=== PATIENT | female | born 1980 | race Caucasian/White ===

== ENCOUNTER 2019-09-30 04:27 | Inpatient (IN) | payer OTHER, SELFPAY ==
[~2019-09-30] VITALS: Ht 149.9 cm; Wt 72.6 kg
[~2019-09-30 04:27] MED LIST: BUDE1AER IH; EZET10TA14 PO; LABE200T9 PO; MYCO500T PO; NITR100C7 PO; OMEP20EC9 PO; PRED-285 PO; TACR1CAP PO; [UNRECOGNIZED DRUG - CODE] PO; [UNRECOGNIZED DRUG - CODE] PO
--- NOTE | 2019-09-30 04:27 | NUR ---
PT BIBA ALS TO ER BED 10
[2019-09-30] MEDS ORDERED: VANCOMYCIN 1,000 MG in DEXTROSE 5% 250 ML IV ONE (04:30)
[2019-09-30] MEDS ORDERED: MEROPENEM 1,000 MG in NACL 0.9% 100 ML IV ONE (04:30)
[2019-09-30] MEDS ORDERED: ZINC SULF 220 MG CAP PO ONE (04:30)
[2019-09-30] MEDS ORDERED: HYDROXYCHLOROQUINE 200 MG TAB PO ONE (04:30)
[2019-09-30] MEDS ORDERED: NACL 0.9% 2,000 ML IV ONE (04:30)
--- NOTE | 2019-09-30 04:30 | NUR ---
PT BIBA FROM [facility] FOR C/O SOB ABD COUGH X 1 DAY. PT ALSO STATED SHE HAD A FEVER OF 100.4 AT FACILITY. CURRENT TEMP 99.4. PT ON 15L OF O2 ON NON-REBREATHER MASK. PT RESPIRATIONS ARE EVEN AND UNLABORED. PT NOTED WITH BILATER CRACKLES THROUGHOUT LUNG. PT O2SAT @ 98%. PT DENIES N/V/D. PT SKIN IS WARM AND DRY TO TOUCH. PT HAD KIDNEY TRANSPLANT IN 2004. OLD DIALYSIS PORT NOTED IN R UPPER ARM. PT HAD L HIP REPLACEMENT IN [facility]. PT ABLE TO AMBULATE WITH ASSISTANCE. PT CONTINUES ON GAMING PIT BOSS. VSS. PT BED IS LOCKED AND IN LOWEST POSITION. MEDHX: HTN, ANXIETY ALLERGIES: SEE ALLERGY LIST
--- NOTE | 2019-09-30 04:40 | NUR ---
UA COLLECTED VIA BEDSIDE COMMODE. PT ABLE TO AMBKLUATE WITH ASSISTANCE TO BEDSIDE COMMODE.
[2019-09-30] MEDS ORDERED: MEROPENEM 1,000 MG VIAL IV ONE (04:48)
[2019-09-30] MEDS ORDERED: VANCOMYCIN 1,000 MG VIAL ONE (04:48)
--- NOTE | 2019-09-30 04:50 | NUR ---
IV PLACED IN L AC 20 G. IV PATENT. LABS COLLECTED AND SENT TO LAB.
[2019-09-30 04:58] VITALS: BP 123/54
--- NOTE | 2019-09-30 05:02 | NUR ---
RT AT BEDSIDE COLLECTING ABG.
--- NOTE | 2019-09-30 05:10 | NUR ---
XRAY AT BEDSIDE.
--- NOTE | 2019-09-30 05:13 | NUR ---
RSV, FLU, AND COVID SWAB COLLECTED VIA NARES. PT TOLERATED WELL.
--- NOTE | 2019-09-30 05:29 | NUR ---
PT IVF 0.9% NS RUNNING CONTINOUSLY IN L AC. IV SITE IS PATENT. IVPB MEROPENEM 1000MG RUNNING AT 200ML/HR. PT RESPIRATIONS ARE EVEN AND UNLABORED. SKIN IS WARM AND DRY TO TOUCH. PT GIVEN WATER PO AND ABKLE TO SWALLOW WITHOUT DIFFICULTY. PT CONTINUES ON CARDIAC MONTIOR. PT CONTINUES ON INSECTICIDE SPRAYER. VSS. PT BED I LOCKED AND IN LOWEST POSTION. PT SIDE RIAL UP X 1.
--- NOTE | 2019-09-30 05:40 | NUR ---
PT STATES SHE IS UNBALE TO GIVE SPUTUM AT THIS TIME.
[2019-09-30] MEDS ORDERED: HYDROcodone/APAP 7.5/325 MG 1 TAB PO PRN (05:45)
[2019-09-30] MEDS ORDERED: ONDANSETRON 4 MG/2 ML VIAL IVP PRN (05:45)
[2019-09-30] MEDS ORDERED: METH4TAB1 PO (06:09)
[2019-09-30] MEDS ORDERED: DICL100T2 PO (06:09)
[2019-09-30] MEDS ORDERED: SODI650T2 PO (06:09)
[2019-09-30] MEDS ORDERED: PANT40EC PO (06:09)
[2019-09-30] MEDS ORDERED: CONJ0.6288 VG ×2 (06:09→12:31)
[2019-09-30] MEDS ORDERED: GABA300C PO (06:09)
[2019-09-30] MEDS ORDERED: ZOLP5TAB1 PO ×2 (06:09→12:31)
[2019-09-30] MEDS ORDERED: ALBU0.0912 IH (06:09)
[2019-09-30] MEDS ORDERED: LID5T TP (06:09)
[2019-09-30] MEDS ORDERED: AMLO2.5T PO ×2 (06:09→12:31)
[2019-09-30] MEDS ORDERED: BUDE1AER IH (06:09)
[2019-09-30] MEDS ORDERED: [UNRECOGNIZED DRUG - CODE] PO (06:09)
[2019-09-30] MEDS ORDERED: ONDA4TAB PO (06:09)
[2019-09-30] MEDS ORDERED: MOME0.051 NS (06:09)
[2019-09-30] MEDS ORDERED: LORA-476 PO (06:09)
[2019-09-30] MEDS ORDERED: LORazepam 2 MG/ML VIAL IVP ONE (06:15)
--- NOTE | 2019-09-30 06:18 | NUR ---
PT HAD C/O ANXIETY. ERMD MADE AWARE AND GAVE NEW ORDER FOR ATIVAN 2MG. GIVEN TO PT IVP. IV SITE IS PATENT AND NO REDNESS, SWELLING NOTED.
[2019-09-30 06:25] LABS: BASOPHILS # (AUTO) 0.1 K/uL (0.00-0.22); BASOPHILS % (AUTO) 0.7 % (0.0-2.0); EOSINOPHILS # (AUTO) 0.1 K/uL (0-0.4); EOSINOPHILS % (AUTO) 0.3 % (0.0-4.0); HEMATOCRIT 26.4 % (36-48); HEMOGLOBIN 8.2 g/dL (12.0-16.0); LYMPHOCYTES # (AUTO) 0.7 K/uL (2.5-16.5); LYMPHOCYTES % (AUTO) 3.8 % (20.5-51.1); MEAN CORPUSCULAR HEMOGLOBIN 31 pg (27-31); MEAN CORPUSCULAR HGB CONC 31 g/dL (33-37); MEAN CORPUSCULAR VOLUME 98.2 fL (80-94); MONOCYTES % (AUTO) 5.7 % (1.7-9.3); NEUTROPHILS # (AUTO) 16.3 K/uL (1.8-7.7); NEUTROPHILS % (AUTO) 89.5 % (42.2-75.2); PLATELET COUNT (AUTO) 498 K/uL (140-450); RED BLOOD CELL COUNT(AUTO) 2.69 MIL/uL (4.20-5.40); RED CELL DISTRIBUTION WIDTH 12.9 % (11.6-13.7); WHITE BLOOD COUNT (AUTO) 18.2 K/uL (4.8-10.8)
--- NOTE | 2019-09-30 06:30 | NUR ---
PT RESTING IN BED EYES OPEN. RESPIASIVE TO VERBAL STIMULI. RESPIRATIONS ARE EVEN AND UNLABORED. PT ON 15L OF O2 ON NON-REBREATHER MASK. PT IV IS PATENT. NO REDNESS, SWELLING,L OR PAIN NOTED AT IV SITE. PT IVF RUNNING CONTINOUSLY. NS 0.9% 1L BOLUS. IN L AC. PT IVPB OF VANCOMYCIN 1GM RUNNING @ 165 ML/HR. PT CVONTINUES ON ENGRAVER LETTER. VSS. CURRENT TEMP: 99.0. BED LOCKED AND IN LOWEST POSITION. BEDISDE RAIL UP X 1.
--- NOTE | 2019-09-30 06:45 | NUR ---
PT STATES "I FEEL BETTER. I AM NOT ANXIOUS ANYMORE."
--- NOTE | 2019-09-30 06:50 | NUR ---
PT STATES UNABLE TO GIVEN SUPTUM CULTURE AT THIS TIME. ERMD MADE AWARE.
[2019-09-30 07:01] LABS: BARBITURATE, URINE NEGATIVE ng/ml (NEG <=200); BENZODIAZEPINE, URINE NEGATIVE ng/mL (NEG <=200); CANNABINOID, URINE NEGATIVE ng/mL (NEG <=50); COCAINE, URINE NEGATIVE ng/mL (NEG <=300); OPIATE, URINE NEGATIVE ng/mL (NEG <=2000); PHENCYCLIDINE SCREEN,URINE NEGATIVE ng/mL (NEG <=25)
[2019-09-30 07:09] LABS: CHOL/HDL RATIO 5.2 (1-4.5); MAGNESIUM 2.2 mg/dL (1.8-2.4); PHOSPHORUS 2.9 mg/dL (2.5-4.9); THYROID STIMULATING HORMONE 3.07 uIU/mL (0.34-3.74)
--- NOTE | 2019-09-30 07:10 | NUR ---
Patient will be admitted to care of . Admited to TELE. Will go to room 129A. Belongings list completed. Report to JEANNIE EARL.
--- NOTE | 2019-09-30 07:34 | NUR ---
RECEIVED PT FROM WET FINISHER RN. PT IS AAOX4, COOPERATIVE AND ABLE TO MAKE NEEDS KNOWN. PT OCCITAN SPEAKING. PORTRAIT PHOTOGRAPHER NOT REQUIRED B/C I SPEAK OCCITAN. PT ON 15L VIA NON-REBREATHER. PT HAS PAST HIP SX WITH SUTURES NOTED TO LEFT HIP. ON BEDREST WITH BEDSIDE COMMODE AT BEDSIDE. ASSIST NEEDED TO AMBULATE. PT IV INTACT. DISCUSSED POC WITH PT AND PT VERBALIZED UNDERSTANDING. ALL NEEDS MET. SAFETY MEASURES IN PLACE. BED IN LOW POSITION, CALL LIGHT WITHIN REACH. WILL ROUND FREQUENTLY ON PT.
[2019-09-30 07:47] LABS: C-REACTIVE PROTEIN QUANT 29.8 mg/dL (0.0-0.9)
[2019-09-30 07:54] LABS: D-DIMER > 5000 ng/ml (0-400)
--- NOTE | 2019-09-30 08:46 | NUR ---
ADMINISTERED MORNING MEDS TO PT. PT TOLERATED WELL. PT NOT KEEPING NON-REBREATHER ON. I INSTRUCTED PT ON IMPORTANCE OF KEEPING MASK ON. PT VERBALIZED UNDERSTANDING BUT PT HAVING SOB. MADE AWARE. PT VITALS STABLE. O2 SAT WENT FROM 84% TO 90% ONCE PT APPLIED O2 PROPERLY. WILL CONTINUE TO MONITOR PT CLOSELY. BED IN LOW POSITION, CALL LIGHT WITHIN REACH.
[2019-09-30] MEDS ORDERED: ENOXAPARIN 40 MG/0.4 ML SYR SUBQ SCH (09:00)
[2019-09-30] MEDS ORDERED: ZINC SULF 220 MG CAP PO SCH (09:00)
[2019-09-30] MEDS ORDERED: HYDROXYCHLOROQUINE 200 MG TAB PO SCH ×2 (09:00→21:00)
[2019-09-30] MEDS: ASCORBIC ACID 500 MG TAB PO SCH (09:08)
[2019-09-30] MEDS: FAMOTIDINE 20 MG TAB PO SCH (09:08)
[2019-09-30] MEDS: ZINC SULF 220 MG CAP PO SCH (09:08)
[2019-09-30] MEDS: AZITHROMYCIN 250 MG TAB PO SCH (09:08)
[2019-09-30] MEDS: DOCUSATE SODIUM 100 MG GELCAP PO SCH ×2 (09:08→21:01)
[2019-09-30] MEDS: VITAMIN D 400 IU TAB PO SCH (09:08)
[2019-09-30 09:31] LABS: PROTHROMBIN TIME 9.6 secs (10.8-13.4)
--- NOTE | 2019-09-30 10:41 | NUR ---
PT RESTING IN BED. O2 SAT STABLE. WILL CONTINUE TO ROUND ON PT.
[2019-09-30] MEDS ORDERED: ALBUTEROL HFA MDI 90 MCG/ACTUATION 8 GM INH PRN (11:00)
[2019-09-30 12:00] VITALS: BP 106/90
[2019-09-30] MEDS ORDERED: methylPREDNISolone SS 40 MG/ML VIAL IVP SCH (12:00)
[2019-09-30] MEDS ORDERED: LACTOBACILLUS RHAMNOSUS GG 1 EACH CAP PO SCH (12:15)
[2019-09-30] MEDS ORDERED: PROG1 PO (12:31)
[2019-09-30] MEDS ORDERED: TACR1CAP PO (12:31)
[2019-09-30] MEDS ORDERED: DICL100T2 TOP (12:31)
[2019-09-30] MEDS ORDERED: ZOLPIDEM 5 MG TAB PO PRN (12:35)
--- NOTE | 2019-09-30 12:41 | NUR ---
PT TRANSFERRED TO ICU FOR HIGHER LEVEL OF CARE. PT VERY LETHARGIC AND RESPIRATORY STATUS WORSENING. O2 SAT DROPPING TO 70'S. PT LOOKS PALE. PT TRANSFERRED WITH NO PROBLEM. FAMILY AWARE . REPORT GIVEN TO MARY ACCEPTING NURSE.
--- NOTE | 2019-09-30 12:45 | NUR ---
RECEIVED PT FROM [facility] NURSE. PT IS A&OX4. TUVALUAN SPEAKING W/ SOME ICELANDIC. PT IS ABLE TO MOVE ALL EXTREMITIES AND ABLE TO FOLLOW SIMPLE COMMANDS. PT IS SHORT OF BREATH, ON 15LPM ON NRB AND 6 LPM VIA NC SIMULTANEOUSLY. PT HAS CRACKLE LUNG SOUNDS THROUGHOUT. PT NATURALLY GOES TO TRIPOD POSITION. RT IS MADE AWARE. SPO2 RANGES FROM 88-92%. S1S2 HEARD. +2 RADIAL PULSES. CAP REFILL <3 SECONDS. BOWEL SOUNDS HEARD. BED IS LOCKED IN LOW POSITION IN SEMI FOWLERS. CALL LIGHT WITHIN REACH. WILL CONTINUE TO MONITOR.
--- NOTE | 2019-09-30 13:00 | NUR ---
PT HAS SURGICAL WOUND OF THE RIGHT HIP S/P HIP SURGERY 1 MONTH AGO. PT ALSO HAS LEFT SHUNT DUE TO HX OF KIDNEY DISEASE. BRUIT FELT.
[2019-09-30] MEDS ORDERED: HYDROcodone/APAP 5/325 MG 1 TAB TAB PO PRN (13:20)
[2019-09-30] MEDS ORDERED: MORPHINE SULFATE 2 MG/ML SYR IVP PRN (13:20)
--- NOTE | 2019-09-30 13:45 | NUR ---
PT IS AWAKE AND ALERT AND INSTRUCTED ON GIVING SPUTUM SAMPLE
[2019-09-30 14:00] VITALS: BP 144/71
[2019-09-30] MEDS: PIPERACILLIN/TAZOBACTAM 2.25 GM in DEXTROSE 5% 50 ML IV SCH ×2 (14:00→17:14)
[2019-09-30 14:55] LABS: ALBUMIN 2.2 g/dL (3.4-5.0); ANION GAP 17.9 (8-16); CARBON DIOXIDE 21.1 mmol/L (21-32); TOTAL BILIRUBIN 0.8 mg/dL (0.0-1.0)
[2019-09-30 15:09] LABS: CREATININE 5.3 mg/dL (0.6-1.3)
[2019-09-30] MEDS ORDERED: LORazepam 2 MG/ML VIAL IM/IVP PRN (15:50)
[2019-09-30 16:00] VITALS: BP 145/69
[2019-09-30] MEDS ORDERED: SODIUM ZIRCONIUM CYCLOSILICATE 10 GM POWD.PACK PO SCH (16:30)
--- NOTE | 2019-09-30 16:55 | NUR ---
CALLED TO BEDSIDE DUE TO PT DESAT TO 85% REPOSITIONED PT IN A HIGH FOWLERS POSITION AND READJUSTED HER OXYGEN. PT IS WEARING NC AT 6L AND NRB AT 15L, PT IS ANXIOUS AND IS A MOUTH BREATHER. O2 SAT CAME UP TO 95%. MADY HERNANDEZ AT BEDSIDE
[2019-09-30 17:37] LABS: APPEARANCE,URINE CLEAR (CLEAR); BILIRUBIN,URINE NEGATIVE (NEGATIVE); BLOOD, URINE TRACE-I (NEGATIVE); COLOR,URINE YELLOW (YELLOW); LEUKOCYTE ESTERASE ,URINE NEGATIVE (NEGATIVE); NITRITE, URINE NEGATIVE (NEGATIVE); PH,URINE 5.5 (5.0-9.0); UGLUCOSE NEGATIVE (NEGATIVE)
[2019-09-30 17:53] LABS: RBC,URINE 0-5 /HPF (0-5)
[2019-09-30 17:54] LABS: WBC,URINE 0-5 /HPF (0-5)
[2019-09-30 18:00] VITALS: BP 145/81
--- NOTE | 2019-09-30 18:45 | NUR ---
PT REQUESTS FOR PERALTA CATHETER TO BE PLACED DUE TO NOCTURIA. DOCTOR PAYAN MADE AWARE.
--- NOTE | 2019-09-30 19:15 | NUR ---
ENDOSRED PT TO MANAGER FUND NURSE TO ENSURE CONTINUITY OF CARE.
--- NOTE | 2019-09-30 19:30 | NUR ---
RECEIVED PT FROM [facility] NURSEMARY. PT SITTING ON EDGE OF BED. PERRL, 3MM, BRISK. A/O X4. RESPIRATIONS SHALLOW AND LABORED @ 43/MIN. ON O2 @ 15 LPM VIA NON-REBREATHER. SP02 @ 90%. LUNGS DIMINISHED THROUGHOUT TO INSPIRATORY/ EXPIRATORY. +S1, S2 AUSCULTATED. ST ON MONITOR. RT AC PERIPHERAL IV PATENT. BOWEL SOUNDS ACTIVE X4. NO ABDOMINAL DISTENTION OBSERVED. DENIES TENDERNESS UPON PALPATION. PT ABLE TO USE BEDSIDE COMMODE INDEPENDENTLY. NON-PITTING EDEMA TO BLE NOTED. PEDAL PULSES PALPABLE. BED LOW AND LOCKED WITH CALL LIGHT IN EASY REACH.
--- NOTE | 2019-09-30 20:30 | NUR ---
INFORMED RESIDENT AND ER DOCTOR ABOUT PATIENT DESATURATION. ER DOCTOR AND RESIDENT CAME TO BEDSIDE FOR ASSESSMENT. WE AGREED TO START A HFNC AT THIS TIME AND OBTAIN ABG. WILL CONTINUE TO MONITOR PATIENT.
[2019-09-30] MEDS ORDERED: CONJUGATED ESTROGENS VAG CREAM 42 GM TUBE VG SCH (21:00)
[2019-09-30] MEDS: GABAPENTIN 300 MG CAP PO SCH (21:00)
[2019-09-30] MEDS: LABETALOL 200 MG TAB PO SCH (21:01)
[2019-09-30] MEDS: MYCOPHENOLATE 250 MG CAP PO SCH (21:01)
[2019-09-30] MEDS: methylPREDNISolone SS 40 MG/ML VIAL IVP SCH (21:01)
[2019-09-30] MEDS: TACROLIMUS 0.5 MG CAP PO SCH (21:02)
[2019-09-30] MEDS: ONDANSETRON 4 MG TAB PO SCH (21:02)
[2019-09-30] MEDS: SODIUM BICARBONATE 650 MG TAB PO SCH (21:05)
--- NOTE | 2019-09-30 21:27 | NUR ---
NEGATIVE TEST AT THIS TIME
[2019-09-30 21:50] VITALS: BP 144/73
--- NOTE | 2019-09-30 21:50 | NUR ---
PLACED PATIENT ON HFNC 30L AND FiO2 95% WITH SPO2 OF 88%-90%. WILL CONTINUE TO MONITOR PATIENT.
--- NOTE | 2019-09-30 23:20 | NUR ---
DR MALAVE AWARE PT IS NOT LOOKING GOOD, RESP RATE HIGH 30-40 X/MINT AND SPO2 60-80%. MD ORDERED ABG AND DONE BY RT. ABG RESULT WAS REPORTING TO DR. MANZANARES BY DR MALAVE AND PER DR. MANZANARES PULMO TO INTUBATE PT. DR LACEY FROM ER AWARE THE ORDER OF THE PULMO TO INTUBATE PT. RT AND MD PREPARED FOR INTUBATION. EXPLAIN TO PT THE PROCEDURE AND BENEFIT OF INTUBATION .PT WAS AGREE.
[2019-09-30] MEDS ORDERED: FUROSEMIDE 40 MG/4 ML VIAL IVP ONE (23:40)
[2019-10-01] VITALS (103 sets, daily range): BP systolic 57–167; BP diastolic 20–123
[2019-10-01] MEDS: MORPHINE SULFATE 50 MG in NACL 0.9% 45 ML IV PRN ×5 (00:10→07:48)
[2019-10-01] MEDS ORDERED: LORazepam 50 MG in NACL 0.9% 25 ML IV PRN (00:15)
--- NOTE | 2019-10-01 00:20 | NUR ---
MADE AWARE PT IS HARD STICK, PT ONLY HAVE ONE IV LINE TO XIMENA AND PT CANNOT HAVE LINE TO LEFT HAND. PT ON MORPHINE AND VERSED DRIP. PER MD WILL ORDER PICC LINE INSERTION FOR PT.
[2019-10-01] MEDS ORDERED: MORPHINE SULFATE 10 MG/ML VIAL ONE ×2 (00:22→07:33)
[2019-10-01] MEDS ORDERED: MIDAZOLAM MDV 50 MG/10 ML VIAL IV ONE (00:29)
--- NOTE | 2019-10-01 00:30 | NUR ---
AT 0010 INTUBATION IS DONE BY FROM ER WITH ASSIST OF AND RT. MEDICATIONS WAS GIVEN PER ORDER.TUBE SUCCESSFULLY IN PLACE. SPO2 TRENDING UP TO 91 %. CONTINUE TO MONITOR PT CLOSELY.
--- NOTE | 2019-10-01 00:35 | NUR ---
DR MANZANARES CALLED BACK. DOCTOR WAS INFORMED ABOUT PATIENT VENT SETTINGS. DR MANZANARES SAID PRONING POSITION SHOULD BE STATED IMMEDIATELY. UNDERCOVER COP AND RN WERE INFORMED ABOUT PRONING POSITION. PATIENT IS NOT FULLY SEDATED AT THIS TIME. WILL CONTINUE TO MONITOR.
--- NOTE | 2019-10-01 00:50 | NUR ---
AT APPROXIMATELY 0010, DOCTOR MURILLO SUCCESSFULLY INTUBATED PATIENT WITH ETT SIZE 7.5 AND SECURED WITH ANCHOR-FAST AT 21CM AT TEETH. AUSCULTATION REVEALS BILATERAL COARSE BREATH SOUNDS. PATIENT WAS PLACED ON VENT SETTINGS AC/VC 28, 350, +18, 100% WITH SPO2 OF 92%. PEEP WAS GRADUALLY TITRATED FROM 10 TO 18 TO IMPROVE SPO2 TO 92%. VENT PLUGGED IN RED OUTLET, HOB > 30 DEGREES, BVM AT BEDSIDE, AND ALARMS SET AND AUDIBLE. PATIENT IS IN NO APPARENT RESPIRATORY DISTRESS AT THIS TIME. SUCTIONED SMALL AMOUNT OF PINK TINGE SECRETIONS FROM ETT. AIRWAY IS PATIENT. WILL CONTINUE TO MONITOR PATIENT.
[2019-10-01] MEDS: MIDAZOLAM MDV 50 MG in NACL 0.9% 40 ML IV PRN ×6 (01:00→04:00)
[2019-10-01] MEDS ORDERED: ROCURONIUM 50 MG/5 ML VIAL IV ONE (01:10)
[2019-10-01] MEDS ORDERED: SUCCINYLCHOLINE CHLORIDE 200 MG/10 ML VIAL IVP ONE (01:10)
[2019-10-01] MEDS ORDERED: ETOMIDATE 20 MG/10 ML VIAL IVP ONE ×2 (01:10)
--- NOTE | 2019-10-01 01:26 | NUR ---
PICC LINE NURSE TED PAGED AND LEFT MESSAGE REGARDING NEW ORDER FOR PICC LINE INSERTION.
[2019-10-01] MEDS ORDERED: FUROSEMIDE 40 MG/4 ML VIAL IVP ONE (02:11)
[2019-10-01] MEDS ORDERED: PIPERACILLIN/TAZOBACTAM 2.25 GM VIAL IV ONE ×2 (02:19→06:12)
--- NOTE | 2019-10-01 02:38 | NUR ---
ABG RESULTS WERE REPORTED TO DR. MALAVE (RESIDENT). RESIDENT WAS INFORMED THAT CHANGES WILL BE MADE ON PATIENT'S VENT SETTINGS TO INCREASE VENTILATION.
--- NOTE | 2019-10-01 02:40 | NUR ---
SPOKE TO MOTHER OF PT R/T CENTRAL LINE PLACEMENT CONSENT. PTS MOTHER AGREED @ THIS TIME. AWAITING MD FOR PROCEDURE. WILL FOLLOW UP
--- NOTE | 2019-10-01 02:45 | NUR ---
PER ABG RESULTS, INCREASED Vt TO 400. BASED ON IBW PATIENT IS RECEIVING ABOUT 7.3 ml/kg. WILL CONTINUE TO MONITOR PATIENT.
[2019-10-01] MEDS: PIPERACILLIN/TAZOBACTAM 2.25 GM in DEXTROSE 5% 50 ML IV SCH ×5 (06:00→17:25)
--- NOTE | 2019-10-01 06:50 | NUR ---
PATIENT HAS BEEN SCREENED AND CATEGORIZED HIGH NUTRITION RISK. PATIENT WILL BE SEEN WITHIN 1-2 DAYS OF ADMISSION. 10/02/19-10/03/19 PETRONA ZHOU MS, RDN
[2019-10-01 07:04] LABS: HEMATOCRIT 23.8 % (36-48); HEMOGLOBIN 7.3 g/dL (12.0-16.0); MEAN CORPUSCULAR HEMOGLOBIN 30 pg (27-31); MEAN CORPUSCULAR HGB CONC 31 g/dL (33-37); MEAN CORPUSCULAR VOLUME 98.4 fL (80-94); PLATELET COUNT (AUTO) 502 K/uL (140-450); RED BLOOD CELL COUNT(AUTO) 2.42 MIL/uL (4.20-5.40)
[2019-10-01 07:09] LABS: WHITE BLOOD COUNT (AUTO) 25.7 K/uL (4.8-10.8)
--- NOTE | 2019-10-01 07:15 | NUR ---
PT REPORT GIVEN TO AM SHIFT FOR CONTINUITY OF CARE.
[2019-10-01 07:25] LABS: ALBUMIN 1.6 g/dL (3.4-5.0); ANION GAP 19.4 (8-16); CARBON DIOXIDE 20.7 mmol/L (21-32); MAGNESIUM 2.1 mg/dL (1.8-2.4); POTASSIUM 5.1 mmol/L (3.5-5.1); TOTAL BILIRUBIN 0.6 mg/dL (0.0-1.0)
--- NOTE | 2019-10-01 07:30 | NUR ---
RECEIVED CHANGE OF SHIFT REPORT FROM LASTING FLOORWORKER NURSE. PT IS AROUSABLE TO LIGHT PAIN. NO SIGNS OF APPARENT DISTRESS NOTED. EYES PERRL. 3MM. PT IS INTUBATED CONNECTED TO VENT. SETTINGS: A/C/ 60% VT 400 RR 30 PEEP 18. LUNG SOUNDS CRACKLES THROUGHOUT. EQUAL RISE AND FALL OF CHEST. S1S2 HEARD. +2 RADIAL PULSES. CAP REFILL <3. PT HAS RIGHT IJ. SEDATION VERSED 6MG/HR (6ML/HR). AND MORPHINE 4MG/HR (4ML/HR) FOR RASS -3. DRY WEIGHT 59 KG. CENTRAL LINE IS ASYMPTOMATIC, PATENT AND INTACT. RIGHT THIGH HAS SURGICAL WOUND THAT IS DRESSED. DRESSING DCI. PERALTA CATHETER IS NOTED. PT HAS +2 PITTING EDEMA. OGT NOTED, NO FEEDING RUNNING. HOB IS 30 DEGREES. BED IS LOCKED IN LOW POSITION. WILL CONTINUE TO MONITOR
[2019-10-01 07:42] LABS: CREATININE 4.9 mg/dL (0.6-1.3)
[2019-10-01 07:59] LABS: BASOPHILS % (MANUAL) 0 % (0-2); EOSINOPHILS % (MANUAL) 0 % (0-4); LYMPHOCYTES % (MANUAL) 3 % (20-46); MONOCYTES % (MANUAL) 2 % (5-12)
--- NOTE | 2019-10-01 08:01 | NUR ---
RECIEVED PATIENT FROM PRECISION AIRCRAFT STRUCTURE ASSEMBLER. PT SEDATED WITH HEAD AT 30 DEGREES. SATURATIONS AT 99/100%. REDUCED FROM PEEP OF 18 TO 16 AND SATURATIONS MAINTAINED AT 99%. WILL CONTINUE TO MONITOR.
[2019-10-01] MEDS: methylPREDNISolone SS 40 MG/ML VIAL IVP SCH ×2 (08:13→22:24)
[2019-10-01] MEDS: ASCORBIC ACID 500 MG TAB PO SCH (08:13)
[2019-10-01] MEDS: LACTOBACILLUS RHAMNOSUS GG 1 EACH CAP PO SCH (08:14)
[2019-10-01] MEDS: amLODIPine 5 MG TAB PO SCH (08:14)
[2019-10-01] MEDS: ZINC SULF 220 MG CAP PO SCH (08:14)
[2019-10-01] MEDS: LABETALOL 200 MG TAB PO SCH ×2 (08:15→22:26)
[2019-10-01] MEDS: GABAPENTIN 300 MG CAP PO SCH ×2 (08:15→22:24)
[2019-10-01] MEDS: FAMOTIDINE 20 MG TAB PO SCH (08:15)
[2019-10-01] MEDS: EZETIMIBE 10 MG TAB PO SCH (08:15)
[2019-10-01] MEDS: DOCUSATE SODIUM 100 MG GELCAP PO SCH ×2 (08:15→22:25)
[2019-10-01] MEDS: AZITHROMYCIN 250 MG TAB PO SCH (08:15)
[2019-10-01] MEDS: MYCOPHENOLATE 250 MG CAP PO SCH ×2 (08:20→22:25)
[2019-10-01] MEDS: TACROLIMUS 0.5 MG CAP PO SCH ×2 (08:21→22:25)
[2019-10-01] MEDS: SODIUM BICARBONATE 650 MG TAB PO SCH ×2 (08:23→21:00)
--- NOTE | 2019-10-01 08:38 | NUR ---
PT SAT DROPPED TO 77%. RAISED PEEP BACK TO 18. VERSED GIVEN AT 6MG PER HOUR. SAT RETURNED TO 91. WILL CONTINUE TO MONITOR.
--- NOTE | 2019-10-01 08:40 | NUR ---
PT SPO2 DROPPED TO 77%. HAS BEEN OFF VERSED FOR 10 MINUTES. PT HAD SHALLOW BREATHING, WAKING UP. RT AT BEDSIDE. SEE RT NOTES.
[2019-10-01] MEDS: VITAMIN D 400 IU TAB PO SCH (08:53)
[2019-10-01] MEDS ORDERED: HYDROXYCHLOROQUINE 200 MG TAB PO SCH (09:00)
[2019-10-01] MEDS ORDERED: LIDOCAINE 5% 1 EA PATCH TP SCH (09:00)
[2019-10-01] MEDS ORDERED: [UNRECOGNIZED DRUG - OTHER] PO SCH (09:00)
[2019-10-01] MEDS ORDERED: DICLOFENAC SODIUM 4 GM TOP SCH (09:00)
[2019-10-01] MEDS ORDERED: MOMETASONE FUROATE NS SCH (09:00)
--- NOTE | 2019-10-01 10:00 | NUR ---
PT VITAL SIGNS ARE STABLE AT THIS TIME. PT IS APPEARS TO BE RESTING ON BED. THERE IS NO EVIDENCE OF APPARENT DISTRESS.
--- NOTE | 2019-10-01 12:00 | NUR ---
PT SHOWS NO SIGNS OF DISTRESS. EQUAL RISE AND FALL OF CHEST. PT WITHDRAWALS FROM LIGHT PAIN. BED IS LOCKED. LIFESAVING MEASURES ARE IN PLACE. WILL CONTINUE TO MONITOR
[2019-10-01] MEDS: ONDANSETRON 4 MG TAB PO SCH ×2 (12:45→22:24)
--- NOTE | 2019-10-01 15:00 | NUR ---
PT'S BROTHER CALLED ICU ASKING FOR PT INFORMATION. PT'S BROTHER WAS INFORMED THAT ICU STAFF CANNOT DIVULGE INFORMATION TO HIM.
[2019-10-01] MEDS ORDERED: HEPARIN PER PHARMACY MC PRN ×2 (15:30)
--- NOTE | 2019-10-01 16:00 | NUR ---
START HEPARIN DRIP AT 1000 UNIT/HR (10ML/HR). WILL ORDER APTT FOR 2200
[2019-10-01] MEDS: hePARIN / DEXT 5% PREMIX 250 ML IV SCH (17:13)
--- NOTE | 2019-10-01 17:15 | NUR ---
DOCTOR URI AT PT BEDSIDE
[2019-10-01] MEDS: MIDAZOLAM MDV 100 MG in NACL 0.9% 80 ML IV PRN (17:32)
--- NOTE | 2019-10-01 18:00 | NUR ---
CHANGED CENTRAL LINE DRESSING. ORDERED CXR TO RECHECK PLACE OF RIGHT IJ CENTRAL CATHETER. UO 325
--- NOTE | 2019-10-01 19:10 | NUR ---
INFORMED DR. MALAVE TO DECREASED PATIENT'S VENTILATION TO OBTAINED ADEQUATE MINUTE VENTILATION BASED THE ABG FROM THE MORNING. Vt WAS DECREASED TO 350. WILL CONTINUE TO MONITOR PATIENT.
--- NOTE | 2019-10-01 19:15 | NUR ---
ENDORSED PT TO CIRCULAR DISTRIBUTOR NURSE TO ENSURE CONTINUITY OF CARE.
--- NOTE | 2019-10-01 19:15 | NUR ---
RECEIVED REPORT FROM AM SHIFT. PATIENT SEEN AND ASSESSED. PATIENT IS INTUBATED WITH ETT SIZE 7.5 AND SECURED WITH ANCHOR-FAST AT 21CM. AUSCULTATION REVEAL COARSE BREATH SOUNDS ON LEFT SIDE AND DIMINISHED BREATH SOUNDS ON RIGHT SIDE. PATIENT ON VENT SETTINGS AC/VC 30, 400, +18, 70% WITH SPO2 OF 92%. VENT PLUGGED IN RED OUTLET, HOB > 30 DEGREES, BVM AT BEDSIDE, AND ALARMS SET AND AUDIBLE. PATIENT IS IN NO APPARENT RESPIRATORY DISTRESS AT THIS TIME. PRN TX NOT INDICATED AT THIS TIME. SUCTIONED SMALL AMOUNT OF YELLOW THICK SECRETIONS FROM ETT. AIRWAY IS PATIENT. WILL CONTINUE TO MONITOR PATIENT.
--- NOTE | 2019-10-01 19:25 | NUR ---
RECEIVED BEDSIDE REPORT FROM MORNING NURSE. PATIENT SEDATED RASS -3 WITH MORPHINE, VERSED DRIP. ETT TO VENT WITH SETTING A/C MODED FIO2 70%, VT 400, R 30, PEEP 18. BILATERAL LUNGS SOUNDS COARSE NOTED. SR ON THE MONITOR. CENTRAL LINE TO RIGHT IJ, TRIPLE LUMENS STILL MINIMAL BLEEDING NOTED, WITH MORPHINE 4MG/HR, VERSED 6MG/HR, HEPARIN DRIP 1000UNITS/HR NOTED. OGT IN PLACE, PLACEMENT CHECKED. PERALTA CATH IN PLACE, BILATERAL SOFT WRIST RESTRAINT NOTED. OLD SHUNT TO LEFT UPPER ARM NOTED. BED IN LOW POSITION, BILATERAL SIDERAILS UP. CALL LIGHT WITHIN REACH. WILL CONTINUE TO MONITOR.
--- NOTE | 2019-10-01 19:30 | NUR ---
ANANDA BRIGGS AT BEDSIDE. RECEIVED HEPARIN DRIP HOLD FOR CHEST TUBE PLACEMENT ORDER DUE TO CHEST X RAY CAME OUT WITH RIGHT SIDE PNEUMOTHORAX.
[2019-10-01] MEDS: MORPHINE SULFATE 100 MG in NACL 0.9% 90 ML IV PRN (20:45)
--- NOTE | 2019-10-01 21:10 | NUR ---
RIGHT SIDE CHEST TUBE SUCCESSFULLY INSERTED BY AND . CHEST TUBE TO LOW INTERMITTENT SUCTION BY . WILL CONTINUE TO MONITOR.
--- NOTE | 2019-10-01 21:15 | NUR ---
DR MALAVE (RESIDENT) AND DR EDDY AT BEDSIDE. CHEST TUBE PLACEMENT SUCCESSFULLY COMPLETED. XRAY WAS TAKE AFTER PLACEMENT. PATIENT IN NO RESPIRATORY DISTRESS AT THIS TIME. SPO2 94%. RN AT BEDSIDE. WILL CONTINUE TO MONITOR PATIENT.
[2019-10-02] VITALS (107 sets, daily range): BP systolic 96–140; BP diastolic 45–72
--- NOTE | 2019-10-02 | NUR ---
PATIENT SEDATED, RASS -3 NOTED, WITH VERSED AND MORPHINE DRIP. TOLERATED WELL WITH VENT. WILL CONTINUE TO MONITOR.
[2019-10-02] MEDS: PIPERACILLIN/TAZOBACTAM 2.25 GM in DEXTROSE 5% 50 ML IV SCH ×4 (00:38→17:36)
[2019-10-02 06:15] LABS: HEMATOCRIT 23.1 % (36-48); HEMOGLOBIN 7.3 g/dL (12.0-16.0); MEAN CORPUSCULAR HEMOGLOBIN 31 pg (27-31); MEAN CORPUSCULAR HGB CONC 32 g/dL (33-37); MEAN CORPUSCULAR VOLUME 97.8 fL (80-94); PLATELET COUNT (AUTO) 539 K/uL (140-450); RED BLOOD CELL COUNT(AUTO) 2.36 MIL/uL (4.20-5.40); WHITE BLOOD COUNT (AUTO) 16.5 K/uL (4.8-10.8)
[2019-10-02 06:38] LABS: ALBUMIN 1.6 g/dL (3.4-5.0); ANION GAP 20.9 (8-16); CARBON DIOXIDE 19.2 mmol/L (21-32); MAGNESIUM 2.4 mg/dL (1.8-2.4); PHOSPHORUS 6.4 mg/dL (2.5-4.9); POTASSIUM 5.1 mmol/L (3.5-5.1); TOTAL BILIRUBIN 0.6 mg/dL (0.0-1.0)
[2019-10-02 06:44] LABS: CREATININE 5.2 mg/dL (0.6-1.3)
--- NOTE | 2019-10-02 07:14 | NUR ---
REC'D PT ON [place] VENT SETTINGS AC 30 VT 350 PEEP 18 FIO2 70% ALARMS ON AND AUDIBLE AND BVM AT HOB AND VENT IS PLUGGED INTO RED OUTLET, SXN PT SMALL AMT OF THIN WHITE SECRETIONS, PT ORALLY INTUBATED WITH 7.5 ETT SECURED WITH ANCHOR FAST AT 21CM, HAS CHEST TUBE IN RIGHT CHEST. MADE CHANGES TO VENT : DECREASED FIO2 TO 60%, RR TO 25 AND DECREASED PEEP TO 16. PT IS RESTING WITH NO SIGNS OF DISTRESS NOTED AT THIS TIME
--- NOTE | 2019-10-02 07:20 | NUR ---
RECEIVED PT FROM NIGHT NURSE. PT SEDATED WITH MORPHINE 4MG/H AND VERSED 6MG/H AT RASS -3. ETT TO VENT IN AC MODE FIO2 60%, TV 400, RR 25, PEEP 16, O2 SAT 100%. OGT IN PLACE, PT NPO EXCEPT MEDS. PERALTA IN PLACE. SURGICAL WOUND PRESENT TO R HIP WITH SUTURES, OTHERWISE SKIN INTACT. R IJ AND L UA SHUNT IN PLACE. CHEST TUBE IN PLACE IN RIGHT SIDE ON LOW INTERMITTENT SUCTION. PT RECEIVING HEPARIN AT 1000U FOR DVT PROPHILAXIS. WBC 16.5 TRENDING DOWN. WILL CONTINUE TO MONITOR. Addendum: 10/02/19 at 1231 by Spencer Flores RN SKIN WARM AND DRY, COLOR AND TURGOR WITHIN NORMAL LIMITS. HEPARIN RUNNING AT 1100U
[2019-10-02] MEDS: ASCORBIC ACID 500 MG/5 ML ORASYR PO SCH (08:12)
[2019-10-02] MEDS: DOCUSATE 100 MG/10 ML UDC PO SCH ×2 (08:12→20:24)
[2019-10-02] MEDS: methylPREDNISolone SS 40 MG/ML VIAL IVP SCH ×2 (08:13→20:23)
[2019-10-02] MEDS: AZITHROMYCIN 250 MG TAB PO SCH (08:13)
[2019-10-02] MEDS: FAMOTIDINE 20 MG TAB PO SCH (08:13)
[2019-10-02] MEDS: LACTOBACILLUS RHAMNOSUS GG 1 EACH CAP PO SCH (08:13)
[2019-10-02] MEDS: SODIUM BICARBONATE 650 MG TAB PO SCH ×2 (08:13→20:27)
[2019-10-02] MEDS: GABAPENTIN 300 MG CAP PO SCH ×2 (08:14→20:24)
[2019-10-02] MEDS: TACROLIMUS 0.5 MG CAP PO SCH ×2 (08:21→20:27)
[2019-10-02] MEDS: ZINC SULF 220 MG CAP PO SCH (08:21)
[2019-10-02] MEDS: EZETIMIBE 10 MG TAB PO SCH (08:21)
[2019-10-02] MEDS: VITAMIN D 400 IU TAB PO SCH (08:22)
[2019-10-02] MEDS: MYCOPHENOLATE 250 MG CAP PO SCH ×2 (08:22→20:26)
[2019-10-02 08:41] LABS: LYMPHOCYTES % (MANUAL) 5 % (20-46); MONOCYTES % (MANUAL) 2 % (5-12)
[2019-10-02] MEDS: amLODIPine 5 MG TAB PO SCH (09:00)
[2019-10-02] MEDS ORDERED: CALCIUM ACETATE 667 MG TAB PO SCH (09:00)
[2019-10-02] MEDS: LABETALOL 200 MG TAB PO SCH ×2 (09:00→20:24)
--- NOTE | 2019-10-02 09:02 | NUR ---
OGT RESIDUALS CHECKED 50ML. MEDICATIONS ADMINISTERED PER ORDER, PT TOLERATED WELL. REPOSITIONED AND ORAL CARE GIVEN. CHEST TUBE AND PERALTA DRAINING ADEQUATELY. AMLODIPINE AND LABETOLOL HELD DUE TO LOW BP AND HEART RATE. SAFETY MEASURES IN PLACE. WILL CONTINUE TO MONITOR.
[2019-10-02] MEDS: ONDANSETRON 4 MG/5 ML ORASYR PO SCH ×2 (09:57→20:23)
[2019-10-02] MEDS: LIDOCAINE 5% 1 EA PATCH TP SCH ×2 (09:58→23:05)
--- NOTE | 2019-10-02 10:27 | NUR ---
RFP WRITER NOTE: Basic Screen: Yes High Risk DC Screen [place]: RUBY Ospina Relationship: MOTHER Pre-Admission Living Arrangements: SNF Other: [facility] Prior ADL Needs Assistance Current Home Health Name/Tel: N/A Current DME/02 Name/Tel: [employer] Current Hospice Name/Tel: N/A Current Dialysis Name/Tel: N/A Healthcare Decision Maker: Patient Advance Directive No Patient/Family Have Educational Needs No Discipline: Case Mgt/Social Svcs Tentative Discharge Plan/Destination: SNF/ECF Other: [facility] Will require assistance post discharge: No Referred to Supervisor Inspection And Testing: No Tentative Discharge Plan Summary: PATIENT IS A 39-YEAR-OLD FEMALE ADMITTED FOR PNA AND R/O COVID. PATIENT HAS PMHX OF ASTHMA, HYPERTENSION, AND RENAL DISEASE. PATIENT WAS ADMITTED FROM [facility]. SW WAS UNABLE TO MEET PATIENT AT BEDSIDE DUE TO MEDICAL CONDITION. SW CONTACTED SALOMON FROM [facility] [phone] WHO STATED PATIENT WAS A SKILLED RESIDENT AND IS ON A BED HOLD. SALOMON STATED THAT PATIENT IS ALERT/ORIENTED AT BASELINE AND IS SELF-RESPONSIBLE WITH MEDICAL DECISIONS. SALOMON ALSO STATED THAT PATIENT REQUIRES MINIMAL ASSISTANCE WITH ADLS. TENTATIVE DISCHARGE PLAN IS FOR PATIENT TO RETURN HOME. NO FURTHER NEEDS IDENTIFIED. Signature: JAZ NASCIMENTO Date: October 02, 2019 Time: 10:26
[2019-10-02] MEDS ORDERED: FUROSEMIDE 40 MG/4 ML VIAL IVP SCH (10:30)
--- NOTE | 2019-10-02 10:45 | NUR ---
DR. GREWAL SPOKE TO RT RENAN Penny CONCERNING BREATHING TX CAN GIVE HHN . HHN ORDER WAS MADE WITH ALBUTEROL 2.5MG Q6 AND Q4PRN FOR SOB/WHEEZING. AND PEEP WAS CHANGED FROM 16 TO 14 AND SPUTUM WAS COLLECTED AND D/C MDI ORDER CALLED ABOUT BREATHING TX AND WAS CONFIRMED THAT ALBUTEROL 2.5MG WAS FINE FOR HHN TX ORDER
--- NOTE | 2019-10-02 10:48 | NUR ---
LASIX AND CALCIUM ACETATE GIVEN AT THIS TIME. PER DR GREWAL PEEP LOWERED FROM 16 TO 14. WILL CONTINUE TO MONITOR.
--- NOTE | 2019-10-02 11:05 | NUR ---
SCREEN FOR LOW VINITA SCALE AT RISK, CONTINUE TO FOLLOW PRESSURE ULCER PREVENTION INTERVENTIONS. -TURN AND REPOSITION PATIENT Q 2H -ASSESS AND MONITOR SKIN CONDITION DURING POSITION CHANGE -OFFLOAD BILATERAL HEELS BY PLACING PILLOWS UNDER CALVES AT ALL TIMES, UNLESS OTHERWISE CONTRAINDICATED -PRESSURE REDISTRIBUTION BY PLACING PILLOWS AND OFFLOADING SACRALCOCCYX -KEEP SKIN CLEAN AND DRY AT ALL TIMES.
[2019-10-02] MEDS ORDERED: ALBUTEROL 0.083% 2.5 MG/3 ML NEBU INH PRN (11:35)
[2019-10-02] MEDS: MIDAZOLAM MDV 100 MG in NACL 0.9% 80 ML IV PRN ×2 (13:00→17:21)
--- NOTE | 2019-10-02 13:12 | NUR ---
BLOOD DRAWN FOR PTT. PT REPOSITIONED, VAP ORAL CARE GIVEN. PICTURE TAKEN OF HIP SURGICAL WOUND OF 16CM BY 0.5CM, PLACED IN CHART. ISLAND DRESSING PLACED OVER SURGICAL WOUND. WILL CONTINUE TO MONITOR.
--- NOTE | 2019-10-02 15:13 | NUR ---
10/02/19 RD INITIAL ASSESSMENT COMPLETED PLEASE REFER TO NUTRITION ASSESSMENT UNDER CARE ACTIVITY FOR ESTIMATED NUTRITIONAL NEEDS. 1. RD RECOMMENDED NEPRO 1.8 @ 40 ML/HR X 24 HR OR TOTAL OF 960 ML/DAY. START AT 10 ML/HR AND INCREASE BY 10ML/HR Q6H -THIS WILL PROVIDE 960 ML OF VOLUME, 1728 CALORIES AND 78 GM OF PROTEIN WHICH MEETS 100% OF ESTIMATED NEEDS 2. RECOMMEND FREE WATER FLUSH OF 50 ML Q6H 3. RECOMMEND NEPHRO-RADHA DAILY 4. IF/WHEN PT IS EXTUBATED CONSIDER ORDERING SWALLOW EVALUATION FOR PO DIET 5. RD TO FOLLOW-UP 2-3 DAYS, HIGH RISK ÓSCAR JAIME, MIKE
--- NOTE | 2019-10-02 15:15 | NUR ---
CALLED RUBY YUNG FOR CONSENT TO BLOOD TRANSFUSION, INSERTION OF HEMODIALYSIS CATHETER AND HEMODIALYSIS. TELEPHONE CONSENT GIVEN AND 2 RN WITNESS DONE WITH CHARGE NURSE ALEN. CONSENTS SIGNED AND PLACED IN PT CHART.
--- NOTE | 2019-10-02 15:46 | NUR ---
DC PLANNIN YRS OLD FEMALE PATIENT WAS ADMITTED [place] [facility] [place] WITH [place] DX OF PNEUMONIA R/O COVID. 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 1ST COVID TEST NEGATIVE. CXR SHOWED LEFT LOWER LOBE ATELECTASIS OR INFILTRATE. INFLUENZA A&B NEGATIVE RT PERFORMING MDI BREATHING TREATMENT . START IVF,IV ABX ZOSYN ORDERED PRONE POSITION . CONSULTED WITH ID DR FREEMAN, PULMO DR MANZANARES AND DR THERESA YORK. BLOOD AND URINE CULTURE PENDING. DC PLAN AWAITING FOR 2ND COVID TEST CM TO FOLLOW. Addendum: 10/03/19 at 1018 by Maranda Duvall ORALLY INTUBATED TO VENT, FIO2 40%, O2 SAT 100%. SEDATED WITH MORPHINE AND VERSED DRIPS. CURRENT LABS INCLUDE WBC 16.0, H/H 6.8/21.4, NA/K 136/5.0, BUN/CREA 88/5.6 AND ALB 1.6. ON HEPARIN DRIP- APTT 68.9. 2 UNITS OF PRBC ORDERED TODAY. ON SOLU MEDROL AND ZOSYN. FOR HD TODAY AND TOMORROW. DC PLAN PENDING ON PATIENT'S RESPONSE TO TREATMENT. Addendum: 10/03/19 at 1558 by Maranda Duvall CM CONTACTED MICAH OF [facility] [place], TO GATHER INFORMATION REGARDING DIALYSIS. SHE STATED THIS IS FIRST TIME DIALYSIS. Addendum: 10/04/19 at 0920 by Maranda Duvall CM RECEIVED AN ORDER FOR HIGHER LEVEL OF TRANSFER TO [facility] UNDER THE CARE OF DR. AJAY ALBERTO. REFERRAL SENT TO [facility] AND [facility]. KYLE OF [facility] MADE AWARE OF PLAN. HE STATED IF [facility] ACCEPTS THE PATIENT TO CALL HIM BACK FOR TRANSPORT AUTH. WILL FOLLOW UP. Addendum: 10/04/19 at 1036 by Maranda Duvall CM STILL IN ICU. ON ETT TO VENT, FIO2 40%, O2 SAT 99%. SEDATED WITH VERSED AND MORPHINE DRIPS. ON HEPARIN DRIP-APTT 108 AND D DIMER >5000. CURRENT LABS INCLUDE WBC 23.4, H/H 9.7/30.5, NA/K 137/4.2, BUN/CREA 74/4.5 AND ALB 1.8. ON ZOSYN, SOLU MEDROL. CURRENT CXR SHOWED NO SIGNIFICANT INTERVAL CHANGE IN DIFFUSE AIRSPACE EDEMA VS INFILTRATE AND QUESTIONABLE TRACE BILATERAL EFFUSIONS. FOR NEW HD PLACEMENT TODAY WITH DR OWENS. PENDING HIGHER LEVEL TRANSFER. Addendum: 10/04/19 at 1110 by Maranda Duvall CM CONTACTED [facility] TRANSFER [facility] AT [phone], ABLE TO SPEAK TO VÍCTOR. SHE CONFIRMED THAT THEY RECEIVED THE REFERRAL, BUT DID NOT GET THE CHANGE TO CALL ME. PROVIDED HER ALL THE INFORMATION SHE NEEDED. PER VÍCTOR, THEY WILL PUT THE PATIENT ON THEIR LIST. 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 NOTIFIED DR KHADER. RODRIGEZ TO FOLLOW Addendum: 10/05/19 at 1135 by Maranda Duvall CM STILL IN ICU. ORALLY INTUBATED, FIO2 40%, O2 SAT 100%. SEDATED WITH MORPHINE AND VERSED DRIPS. ON SOLU MEDROL, ZOSYN AND VANCOMYCIN. CURRENT LABS INCLUDE WBC 18.8, H/H 9.9/31.0, NA/K 138/4.1, BUN/CREA 48/3.3 AND ALB 1.8. 2X NEGATIVE COVID. D DIMER >500. SEEN BY NEPHRO - WILL CONTINUE DIALYSIS, NEXT DIALYSIS WILL BE TOMORROW. DC PLAN BACK TO [facility] [place] ONCE ST[place]. Addendum: 10/06/19 at 1051 by Maranda Duvall CM STILL IN ICU. ORALLY INTUBATED TO VENT, FIO2 40%, O2 SAT 100%. SEDATED WITH VERSED AND MORPHINE. CURRENT LABS INCLUDE WBC 16.7, H/H 10.1/31.2, NA/K 138/4.2, BUN/CREA 66/3.8, BNP 716. ON HEPARIN DRIP-APTT 54.3. ON SOLU-MEDROL AND ZOSYN. SPUTUM CULTURE SHOWED MODERATE YEAST AND RARE GRAM POSITIVE COCCI. TRACHEAL ASPIRATE PENDING. BLOOD CS NO GROWTH AFTER 5 DAYS. URINE CS MIXED UROGENITAL BEST. SEEN BY NEPHRO - FOR HD TODAY. ECHO SHOWED MODERATE AR. NORMAL LVEF. SEEN BY ID - PNEUMONIA IS IMPROVING AND TO CONTINUE ANTIBIOTIC. SEEN BY PULMO - WEAN MECHANICAL VENT CPAP TRIAL AND MONITOR CHEST TUBE, KEEP ON WALL SUCTION. Addendum: 10/08/19 at 1420 by Maranda Duvall CM FAILED CPAP TRIAL YESTERDAY, WILL TRY AGAIN TODAY. SCHEDULED FOR TUNNEL CATHETER PLACEMENT TOMORROW WITH BY DR. OWENS. Addendum: 10/09/19 at 1234 by Maranda Duvall CM STILL IN ICU. ORALLY INTUBATED TO VENT, FIO2 28%, O2 SAT 98%. SEDATED WITH VERSED AND MORPHINE DRIPS. CURRENT LABS INCLUDE WBC 22.8, H/H 10.2/31.5, NA/K 144/5.1, BUN/CREA 113/4.7 AND MAG 2.5. APTT 82.4. ON VANCO, ZOSYN, SOLU-MEDROL. CURRENT CXR SHOWED NO PNEUMOTHORAX IS DEMONSTRATED. FOR HD TODAY Addendum: 10/13/19 at 1406 by Melinda Mckinney CM DC PLANNING: PATIENT IS ACCEPTED AT [facility] UNDER THE CARE OF DR TWILA TAVERAS GO TO ROOM 309A # TO GIVE REPORT [phone] [facility] TRANSPORT WITH ALESHA ELEVATOR INSPECTOR TIME 1899 NOTIFIED NED EARL. RAIN TO FOLLOW Addendum: 10/13/19 at 1432 by Xuan Bearden CM PATIENT BEING DISCHARGED TODAY SET UP TRANSPORTATION WITH [facility] FOR 1899, AUTH #[id number] PROVIDED BY HUMBERTO AT [facility]. PATIENT IS GOING TO [facility] IN [place] TO ROOM 309-B.
--- NOTE | 2019-10-02 16:06 | NUR ---
PTS MOTHER RUBY YUNG REQUESTED TO ADD GABO CASEY NEXT OF KIN, ALLOWING HER TO BE NOTIFIED OF PTS STATUS ON A DAILY BASIS. NORBERT KELLEN HAS BEEN REMOVED NEXT OF KIN.
--- NOTE | 2019-10-02 16:48 | NUR ---
ORAL CARE GIVEN, PT REPOSITIONED. RESIDUAL CHECK DONE 10ML, TUBE FEEDING STARTED AT 10ML TO BE INCREASED IN 10ML INCREMENTS Q6H. WILL CONTINUE TO MONITOR.
--- NOTE | 2019-10-02 17:00 | NUR ---
FIO2 LOWERED FROM 60% TO 40% IN 5% INTERVALS OVER 10 MINUTES. PT O2 SAT STEADY AT 98% AFTER THE CHANGE. RT BARBIE AWARE OF THE CHANGE.
[2019-10-02] MEDS: hePARIN / DEXT 5% PREMIX 250 ML IV SCH (17:26)
--- NOTE | 2019-10-02 17:37 | NUR ---
ZOSYN ADMINISTERED AT THIS TIME.
[2019-10-02] MEDS: ALBUTEROL 0.083% 2.5 MG/3 ML NEBU INH SCH (19:42)
--- NOTE | 2019-10-02 19:55 | NUR ---
RECEIVED PATIENT ETT TO MECHANICAL VENTILATOR. VENT CHECK DONE. VENT PLUGGED INTO RED OUTLET WITH WHEELS LOCKED. VENT ALARMS ON AND AUDIBLE. BVM AT [facility]. SCHEDULED BREATHING TREATMENT ADMINISTERED. TOLERATED TX WELL WITH NO ADVERSE SIDE EFFECTS. AIRWAY SECURE AND PATENT. SUCTIONED SCANT AMOUNT OF THIN, BLOODY SECRETIONS. ORAL VAP CARE DONE. NO ACUTE RESPIRATORY DISTRESS NOTED AT THIS TIME. WILL CONTINUE TO MONITOR.
--- NOTE | 2019-10-02 20:00 | NUR ---
PT ETT TO VENT. AC V/C -FIO2 40%, TV-350, RATE-25, PEEP 14. NO RESPIRATORY DISTRESS OBSERVED. RASS -3, ON MORPHINE 4ML/HR, VERSED 6MG/HR, HEPARIN DRIP 11ML/HR. ORAL MUCOSA PINK AND MOIST. SKIN WARM AND DRY. OGT TO FEEDING, NEPRO 10ML/HR WITH 50 ML/6HRS FISHER FLUSH. VAP ORAL CARE DONE. OFF RESTRAINTS AT THIS TIME. RIGHT AC 20G PERIPHERAL LINE PATENT, ASYMPTOMATIC, SALINE LOCKED. RIGHT IJ ASYMPTOMATIC. PULSES PALPABLE. WILL CONTINUE TO MONITOR PATIENT.
--- NOTE | 2019-10-02 20:49 | NUR ---
MADE AWARE ABOUT TWO THERAPEUTIC APTT LEVELS. MD WILL PUT ROUTINE APTT DRAW IN AM.
--- NOTE | 2019-10-02 21:26 | NUR ---
DR OWENS AT BEDSIDE AT THIS TIME INSERTING CENTRAL LINE FOR DIALYSIS.
--- NOTE | 2019-10-02 21:45 | NUR ---
DR. OWENS INSERTED CENTRAL LINE TO LEFT FEMORAL. WILL CONTINUE TO MONITOR PT.
[2019-10-02] MEDS: MORPHINE SULFATE 100 MG in NACL 0.9% 90 ML IV PRN (23:05)
[2019-10-03] VITALS (104 sets, daily range): BP systolic 97–143; BP diastolic 46–92
[2019-10-03] MEDS: PIPERACILLIN/TAZOBACTAM 2.25 GM in DEXTROSE 5% 50 ML IV SCH ×5 (00:09→23:28)
--- NOTE | 2019-10-03 00:38 | NUR ---
PT IS ON HEPARIN DRIP. MD MADE AWARE THAT PT IS ON HER PERIOD. MD STATED TO MONITOR HGB/HCT. WILL CONTINUE TO MONITOR.
[2019-10-03] MEDS: ALBUTEROL 0.083% 2.5 MG/3 ML NEBU INH SCH ×4 (01:36→20:06)
--- NOTE | 2019-10-03 01:36 | NUR ---
VENT CHECK DONE. SCHEDULED BREATHING TREATMENT ADMINISTERED. TOLERATED TX WELL WITHOUT ADVERSE SIDE EFFECTS. SUCTIONED SCANT AMOUNT OF THIN, BLOODY SECRETIONS. NO ACUTE RESPIRATORY DISTRESS NOTED AT THIS TIME. WILL CONTINUE TO MONITOR.
[2019-10-03 06:09] LABS: HEPATITIS A ANTIBODY IGM Negative (Negative); HEPATITIS B CORE AB TOTAL Negative (Negative); HEPATITIS B SURFACE ANTIGEN Negative (Negative)
[2019-10-03 06:11] LABS: PROTHROMBIN TIME 10.4 secs (10.8-13.4)
[2019-10-03 06:22] LABS: HEMATOCRIT 21.4 % (36-48); MEAN CORPUSCULAR HEMOGLOBIN 31 pg (27-31); MEAN CORPUSCULAR HGB CONC 32 g/dL (33-37); MEAN CORPUSCULAR VOLUME 96.6 fL (80-94); RED BLOOD CELL COUNT(AUTO) 2.22 MIL/uL (4.20-5.40); RED CELL DISTRIBUTION WIDTH 12.7 % (11.6-13.7)
[2019-10-03 06:33] LABS: ALBUMIN 1.6 g/dL (3.4-5.0); ANION GAP 19.5 (8-16); CARBON DIOXIDE 21.5 mmol/L (21-32); MAGNESIUM 2.5 mg/dL (1.8-2.4); TOTAL BILIRUBIN 0.7 mg/dL (0.0-1.0)
[2019-10-03 06:41] LABS: HEMOGLOBIN 6.8 g/dL (12.0-16.0)
[2019-10-03] MEDS: MIDAZOLAM MDV 100 MG in NACL 0.9% 80 ML IV PRN (06:44)
[2019-10-03 07:03] LABS: CREATININE 5.6 mg/dL (0.6-1.3)
--- NOTE | 2019-10-03 07:15 | NUR ---
RECEIVED REPORT FROM ICU NURSE FOR CONTINUITY OF CARE. PATIENT IN STABLE CONDITION. RESPIRATIONS EVEN AND UNLABORED, TRACH TO VENT. ALL IV ACCESS INTACT AND PATENT. SKIN WARM AND DRY TO TOUCH. G-TUBE FEEDING INTACT AND PATENT. SAFETY MEASURES IN PLACE. BED IN LOW POSITION, LOCKED IN PLACE. BED ALARM ON. CALL LIGHT AT BEDSIDE. WILL CONTINUE TO MONITOR.
--- NOTE | 2019-10-03 07:30 | NUR ---
PT RECEIVED ON AC VT 350 PEEP 14 F 25 PT WAS GIVEN INLINE NEB AND TOLERATED WELL VENT PLUGGED INTO RED OUTLET AND ET IS SECURED BMV AT BEDSIDE
--- NOTE | 2019-10-03 07:40 | NUR ---
ENAMELER AT BEDSIDE AT THIS TIME. PATIENT IN STABLE CONDITION.
[2019-10-03] MEDS ORDERED: ESTROGENS CONJUGATED 0.3 MG TAB PO SCH (09:00)
[2019-10-03 09:12] LABS: LYMPHOCYTES % (MANUAL) 2 % (20-46); MONOCYTES % (MANUAL) 2 % (5-12); PLATELET COUNT (AUTO) 577 K/uL (140-450)
[2019-10-03] MEDS: DOCUSATE 100 MG/10 ML UDC PO SCH ×2 (09:30→20:17)
[2019-10-03] MEDS: GABAPENTIN 300 MG CAP PO SCH ×2 (09:31→20:21)
[2019-10-03] MEDS: ASCORBIC ACID 500 MG/5 ML ORASYR PO SCH (09:31)
[2019-10-03] MEDS: EZETIMIBE 10 MG TAB PO SCH (09:31)
[2019-10-03] MEDS: LACTOBACILLUS RHAMNOSUS GG 1 EACH CAP PO SCH (09:31)
[2019-10-03] MEDS: VIT-B COMP/VIT-C/FOLIC ACID 1 TAB PO SCH (09:32)
[2019-10-03] MEDS: amLODIPine 5 MG TAB PO SCH (09:32)
[2019-10-03] MEDS: FAMOTIDINE 20 MG TAB PO SCH (09:33)
[2019-10-03] MEDS: MYCOPHENOLATE 250 MG CAP PO SCH ×2 (09:33→20:20)
[2019-10-03] MEDS: ZINC SULF 220 MG CAP PO SCH (09:34)
[2019-10-03] MEDS: AZITHROMYCIN 250 MG TAB PO SCH (09:34)
[2019-10-03] MEDS: TACROLIMUS 0.5 MG CAP PO SCH ×2 (09:35→20:21)
[2019-10-03] MEDS: ONDANSETRON 4 MG/5 ML ORASYR PO SCH ×2 (09:36→20:18)
[2019-10-03] MEDS: methylPREDNISolone SS 40 MG/ML VIAL IVP SCH ×2 (09:36→20:18)
[2019-10-03] MEDS: VITAMIN D 400 IU TAB PO SCH (09:36)
[2019-10-03] MEDS: SODIUM BICARBONATE 650 MG TAB PO SCH ×2 (09:38→20:18)
--- NOTE | 2019-10-03 09:40 | NUR ---
GAVE ORDERED DUE MEDICATIONS AT THIS TIME. PATIENT TOLERATED WELL. WILL CONTINUE TO MONITOR.
[2019-10-03] MEDS: LABETALOL 200 MG TAB PO SCH ×3 (09:47→22:30)
[2019-10-03] MEDS: FLUTICASONE NASAL 50 MCG/ACTUATION 16 GM BTL NS SCH (09:48)
[2019-10-03] MEDS ORDERED: [UNRECOGNIZED DRUG - MIXTURE] PO SCH (10:38)
--- NOTE | 2019-10-03 11:25 | NUR ---
HABITAT CONSERVATION PLANNER INFORMED ME DR GREWAL WOULD LIKE PEEP TITRATED DOWN TO 12 AND PT TOLERATED WELL ETT WAS MOVED PT IS RESTING COMFORTABLY ON VENT AT THIS TIME WILL CONTINUE TO MONITOR
--- NOTE | 2019-10-03 11:31 | NUR ---
PER DR. GREWAL, HOA (PULMONARY), GENERAL UTILITY MAINTENANCE REPAIRER LOWERED VENTILATOR PEEP FROM 14 TO 12. PATIENT TOLERATED WELL. BED IN LOW POSITION. BED ALARM ON. CALL LIGHT AT BEDSIDE. WILL CONTINUE TO MONITOR.
--- NOTE | 2019-10-03 13:01 | NUR ---
CHANGED AND CLEANED PATIENT AT THIS TIME. PATIENT TOLERATED WELL. BED IN LOW POSITION. BED ALARM ON. CALL LIGHT AT BEDSIDE. WILL CONTINUE TO MONITOR.
[2019-10-03 14:47] LABS: HEPATITIS B SURFACE ANTIBODY Non Reactive (.)
--- NOTE | 2019-10-03 15:30 | NUR ---
PATIENT RESTLESS, INCREASED MORPHINE DRIP FROM 4ML TO 5ML. PATIENT TOLERATED WELL. BED IN LOW POSITION. BED ALARM ON. CALL LIGHT AT BEDSIDE. WILL CONTINUE TO MONITOR.
--- NOTE | 2019-10-03 17:00 | NUR ---
VENT CHECK COMPLETED AND HME WAS EXCHANGED PT TOLERATED WELL BMV AT BEDSIDE AND VENT PLUGGED INTO RED OUTLET
--- NOTE | 2019-10-03 17:05 | NUR ---
KRISTEN SON AT BEDSIDE FOR PATIENT ASSESSMENT AT THIS TIME. PATIENT IN STABLE CONDITION. BED IN LOW POSITION. BED ALARM ON. CALL LIGHT AT BEDSIDE. WILL CONTINUE TO MONITOR.
[2019-10-03] MEDS: hePARIN / DEXT 5% PREMIX 250 ML IV SCH (17:18)
--- NOTE | 2019-10-03 19:10 | NUR ---
GAVE REPORT TO ICU NURSES SAM/CAYDEN FOR CONTINUITY OF CARE. PATIENT IN STABLE CONDITION.
--- NOTE | 2019-10-03 19:30 | NUR ---
PT ETT TO VENT. AC V/C -FIO2 40%, TV-350, RATE-25, PEEP 12. NO RESPIRATORY DISTRESS OBSERVED. SKIN WARM AND DRY. OGT TO FEEDING, NEPRO 40ML/HR WITH 50 ML/6HRS FREE WATER FLUSH. OFF RESTRAINTS AT THIS TIME. RASS -3, ON MORPHINE 5ML/HR, VERSED 6MG/HR, HEPARIN DRIP 11ML/HR. ORAL MUCOSA PINK AND MOIST. RIGHT AC 20G PERIPHERAL LINE PATENT, ASYMPTOMATIC, SALINE LOCKED. RIGHT IJ ASYMPTOMATIC. LEFT FEMORAL CENTRAL LINE FOR DIALYSIS PATENT AND SECURED WITH DRESSING. PULSES PALPABLE. WILL CONTINUE TO MONITOR PATIENT.
--- NOTE | 2019-10-03 19:40 | NUR ---
PT CURRENTLY ON DIALYSIS AT THIS TIME. DIALYSIS NURSE IN THE UNIT.WILL CONTINUE TO MONITOR.
--- NOTE | 2019-10-03 20:00 | NUR ---
DIALYSIS NURSE AT BEDSIDE. DIALYSIS IN PROGRESS, 1 U PRBC BEING ADMINISTERED VIA TRANSFUSION NURSE, ZOE ORTIZ.
[2019-10-03] MEDS: CONJUGATED ESTROGENS VAG CREAM 42 GM TUBE VG SCH ×2 (20:20→21:00)
--- NOTE | 2019-10-03 20:50 | NUR ---
2ND UNIT OF PRBC ADMINISTERED BY DIALYSIS NURSE AT THIS TIME. NO DISTRESS OBSERVED. WILL CONTINUE MONITOR.
--- NOTE | 2019-10-03 21:00 | NUR ---
PREMARIN VAGINAL ORDER CLARIFIED. STATED TO GIVE 2GM VIA APPLICATOR. WILL CONTINUE MONITOR PATIENT.
--- NOTE | 2019-10-03 21:31 | NUR ---
SHORT RUNS OF V TACH AND CHANGE OF CARDIAC RHYTHM AFIB/SINUS RHYTHM. DR ANGUIANO MADE AWARE. NO ORDERS AT THIS TIME. PT IS CURRENTLY ON DIALYSIS. WILL CLOSELY MONITOR PATIENT.
--- NOTE | 2019-10-03 22:00 | NUR ---
DIALYSIS STOPPED AT THIS TIME D/T ELEVATED HR AND EPISODES OF AFIB. MD AWARE. NO NEW ORDERS AT THIS TIME.
[2019-10-03] MEDS ORDERED: DILTIAZEM 25 MG/5 ML VIAL IVP ONE ×2 (22:40→23:55)
--- NOTE | 2019-10-03 22:45 | NUR ---
NEW ORDERS FROM DR YIN (RESIDENT) FOR DILTIAZEM. ADMINISTERED WITHOUT INCIDENT. SAFETY PRECAUTIONS IN PLACE. WILL FOLLOW UP
--- NOTE | 2019-10-03 23:55 | NUR ---
PT IN AFIB WITH HR IN THE 140S. ADDITIONAL ORDERS FOR DILTIAZEM PER DR YIN. ADMINISTERED WITHOUT INCIDENT. WILL FOLLOW-UP
[2019-10-04] VITALS (107 sets, daily range): BP systolic 102–161; BP diastolic 52–93
--- NOTE | 2019-10-04 00:26 | NUR ---
CONVERTED BACK TO SINUS RHYTHM FROM UNCONTROLLED AFIB. WILL CONTINUE TO MONITOR.
[2019-10-04] MEDS: MORPHINE SULFATE 100 MG in NACL 0.9% 90 ML IV PRN (00:47)
[2019-10-04 00:58] LABS: HEMATOCRIT 30.4 % (36-48); HEMOGLOBIN 9.9 g/dL (12.0-16.0); MEAN CORPUSCULAR HEMOGLOBIN 30 pg (27-31); MEAN CORPUSCULAR HGB CONC 33 g/dL (33-37); MEAN CORPUSCULAR VOLUME 91.6 fL (80-94); PLATELET COUNT (AUTO) 553 K/uL (140-450); RED BLOOD CELL COUNT(AUTO) 3.31 MIL/uL (4.20-5.40); RED CELL DISTRIBUTION WIDTH 14.3 % (11.6-13.7)
[2019-10-04] MEDS: MIDAZOLAM MDV 100 MG in NACL 0.9% 80 ML IV PRN (01:27)
[2019-10-04] MEDS: ALBUTEROL 0.083% 2.5 MG/3 ML NEBU INH SCH ×4 (01:31→19:30)
--- NOTE | 2019-10-04 01:51 | NUR ---
PATIENT IN BED, EYES CLOSED. RASS -3. NO DISTRESS OBSERVED AT THIS TIME. WILL CONTINUE TO MONITOR.
[2019-10-04 02:04] LABS: WHITE BLOOD COUNT (AUTO) 24.4 K/uL (4.8-10.8)
[2019-10-04 02:05] LABS: LYMPHOCYTES % (MANUAL) 0 % (20-46); MONOCYTES % (MANUAL) 3 % (5-12)
--- NOTE | 2019-10-04 04:00 | NUR ---
NO DISTRESS OBSERVED AT THIS TIME. PT IN BED. EYES CLOSED. RASS -3. WILL CONTINUE TO MONITOR.
[2019-10-04] MEDS: PIPERACILLIN/TAZOBACTAM 2.25 GM in DEXTROSE 5% 50 ML IV SCH ×3 (05:38→18:00)
[2019-10-04 06:18] LABS: ANION GAP 18.7 (8-16); CARBON DIOXIDE 22.5 mmol/L (21-32); POTASSIUM 4.2 mmol/L (3.5-5.1)
[2019-10-04 06:22] LABS: ALBUMIN 1.8 g/dL (3.4-5.0); MAGNESIUM 2.3 mg/dL (1.8-2.4); PHOSPHORUS 5.7 mg/dL (2.5-4.9); TOTAL BILIRUBIN 0.8 mg/dL (0.0-1.0)
[2019-10-04 06:24] LABS: CREATININE 4.5 mg/dL (0.6-1.3)
--- NOTE | 2019-10-04 07:13 | NUR ---
REPORT GIVEN TO DAY SHIFT NURSE FOR CONTINUITY OF CARE.
--- NOTE | 2019-10-04 07:25 | NUR ---
RECEIVED REPORT FROM SERVER SECURITY ADMINISTRATOR NURSE. PT IS ETT TO VENT.WITH VENT SETTINGS OF ACVC 25 FIO2 40 TV 350 PEEP 10. FLACC 0, NO SOB, RESPIRATIONS ARE EVEN AND UNLABORED, AFEBRILE. OGT FEEDING OF NEPRO 40ML/HR AND FLUSH OF 50ML Q6H INFUSING WELL. ON MORPHINE DRIP 5MG/HR, VERSED DRIP 6MG/HR, AND HEPARIN DRIP 1100U/HR. WITH LEFT FEMORAL CENTRAL LINE, R IJ LINE, R AC PERIPHERAL. SAFETY PRECAUTIONS IN PLACE. WILL CONTINUE TO MONITOR
[2019-10-04 07:29] LABS: HEMATOCRIT 30.5 % (36-48); HEMOGLOBIN 9.7 g/dL (12.0-16.0); MEAN CORPUSCULAR HEMOGLOBIN 30 pg (27-31); MEAN CORPUSCULAR HGB CONC 32 g/dL (33-37); MEAN CORPUSCULAR VOLUME 92.3 fL (80-94); RED CELL DISTRIBUTION WIDTH 15.1 % (11.6-13.7); WHITE BLOOD COUNT (AUTO) 23.4 K/uL (4.8-10.8)
--- NOTE | 2019-10-04 08:00 | NUR ---
RECEIVED CALL FROM LAB. PTT 10B. HEPARIN DRIP HELD
--- NOTE | 2019-10-04 08:20 | NUR ---
RECEIVED ON A [employer] R860 VENTILATOR PLUGGED INTO RED OUTLET TOLERATING WELL WITHOUT ADVERSE REACTIONS NOTED TO AN ENDOTRACHEAL TUBE #7.5 SECURED AT 21cm TEETH/GUM LINE WITH AN ANCHOR FAST CUFF PRESSURE CHECKED NOTED AMBU BAG AT BEDSIDE SEDATED RESTING WELL WITHOUT SOB NOTED GOOD CHEST RISE ENDOTRACHEAL SUCTION FOR MODERATE THIN YELLOW SECRETIONS AIRWAY PATENT
--- NOTE | 2019-10-04 08:30 | NUR ---
CALLED [facility] DIALYSIS NURSE, NOTIFIED HER THAT PT NEEDS DIALYSIS TODAY.
--- NOTE | 2019-10-04 08:45 | NUR ---
DIALYSIS CATH PLACEMENT DONE BY DR. OWENS
[2019-10-04] MEDS: methylPREDNISolone SS 40 MG/ML VIAL IVP SCH ×2 (09:00→20:29)
[2019-10-04] MEDS: LIDOCAINE 5% 1 EA PATCH TP SCH (09:00)
[2019-10-04] MEDS: ASCORBIC ACID 500 MG/5 ML ORASYR PO SCH (09:00)
[2019-10-04] MEDS: VIT-B COMP/VIT-C/FOLIC ACID 1 TAB PO SCH (09:00)
[2019-10-04] MEDS: [UNRECOGNIZED DRUG - MIXTURE] PO SCH (09:00)
[2019-10-04] MEDS: TACROLIMUS 0.5 MG CAP PO SCH (09:00)
[2019-10-04] MEDS: FLUTICASONE NASAL 50 MCG/ACTUATION 16 GM BTL NS SCH (09:00)
[2019-10-04] MEDS: DOCUSATE 100 MG/10 ML UDC PO SCH ×2 (09:00→20:29)
[2019-10-04] MEDS: LABETALOL 200 MG TAB PO SCH (09:00)
[2019-10-04] MEDS: GABAPENTIN 300 MG CAP PO SCH ×2 (09:00→20:29)
[2019-10-04] MEDS: ONDANSETRON 4 MG/5 ML ORASYR PO SCH ×2 (09:00→20:29)
[2019-10-04] MEDS: SODIUM BICARBONATE 650 MG TAB PO SCH ×2 (09:00→20:29)
[2019-10-04] MEDS: LACTOBACILLUS RHAMNOSUS GG 1 EACH CAP PO SCH (09:00)
[2019-10-04] MEDS: MYCOPHENOLATE 250 MG CAP PO SCH (09:00)
[2019-10-04] MEDS: FAMOTIDINE 20 MG TAB PO SCH (09:00)
[2019-10-04] MEDS: VITAMIN D 400 IU TAB PO SCH (09:00)
[2019-10-04] MEDS: EZETIMIBE 10 MG TAB PO SCH (09:00)
[2019-10-04] MEDS: amLODIPine 5 MG TAB PO SCH (09:00)
[2019-10-04] MEDS: ZINC SULF 220 MG CAP PO SCH (09:00)
--- NOTE | 2019-10-04 09:00 | NUR ---
HEPARIN DRIP RESUMED. DECREASED DOSE TO 950U/HR
--- NOTE | 2019-10-04 09:30 | NUR ---
NGT PATENT AND INTACT. WITH RESIDUALS OF 30CC. DUE MORNING MED GIVEN VIA NGT. TOLERATED WELL.
--- NOTE | 2019-10-04 10:05 | NUR ---
RESTING WELL WITHOUT SOB NOTED GOOD CHEST RISE
[2019-10-04 10:30] LABS: PLATELET COUNT (AUTO) 545 K/uL (140-450)
[2019-10-04 10:31] LABS: LYMPHOCYTES % (MANUAL) 4 % (20-46); MONOCYTES % (MANUAL) 3 % (5-12)
--- NOTE | 2019-10-04 10:50 | NUR ---
WITH LARGE SOFT BM. PERICARE DONE. REPOSITIONED PT. RIGHT FEMORAL LINE DRESSING CHANGED
--- NOTE | 2019-10-04 12:06 | NUR ---
NO EVIDENCE OF RESPIRATORY DISTRESS NOTED GOOD CHEST RISE AND AERATION THROUGHOUT BILATERAL LUNG BENITEZ AIRWAY PATENT
[2019-10-04] MEDS ORDERED: VANCOMYCIN PER PHARMACY MC PRN (12:10)
[2019-10-04] MEDS ORDERED: MAG SULF 2000 MG/WATER PREMIX 50 ML IV SCH (13:00)
--- NOTE | 2019-10-04 13:10 | NUR ---
PT IN BED. RASS -3, FLACC 0, NO SOB
--- NOTE | 2019-10-04 14:12 | NUR ---
STABLE NO DISTRESS NOTED GOOD CHEST RISE AND AERATION THROUGHOUT BILATERAL LUNG BENITEZ AIRWAY PATENT
--- NOTE | 2019-10-04 15:30 | NUR ---
PT IN BED. NO APPARENT DISTRESS
--- NOTE | 2019-10-04 16:07 | NUR ---
NO SOB NOTED GOOD CHEST RISE AIRWAY PATENT
--- NOTE | 2019-10-04 17:50 | NUR ---
RECEIVED CALL FROM LAB. PTT >150. HEPARIN DRIP HELD. RESIDENT MADE AWARE.
--- NOTE | 2019-10-04 17:55 | NUR ---
RESTING WELL NO SOB NOTED GOOD CHEST RISE
--- NOTE | 2019-10-04 18:30 | NUR ---
WITH LARGE SOFT BM. PERICARE DONE. REPOSITIONED PT.
--- NOTE | 2019-10-04 18:50 | NUR ---
HEPARIN DRIP RESUMED. DECREASED DOSE TO 700U/HR
[2019-10-04] MEDS: hePARIN / DEXT 5% PREMIX 250 ML IV SCH (19:07)
--- NOTE | 2019-10-04 19:15 | NUR ---
ENDORSED TO GRINDER SET UP OPERATOR THREAD FOR CONTINUITY OF CARE. IN STABLE CONDITION
--- NOTE | 2019-10-04 19:16 | NUR ---
REPORT RECEIVED FROM AM NURSE AT BEDSIDE. PT IN STABLE CONDITION. AAOX0. PT IS SEDATED. FLACC 0. NO SOB ETT TO VENT. VENT SETTINGS AC V/C FIO2 40%VT 350, RR 25, PEEP 10. AFEBRILE@97.5. PT HAS PERALTA DRAINING CLEAR STRAW COLORED URINE. RASS-3. PT HAS CHEST TUBE IN PLACE. PT HAS SOFT WRIST RESTRAINTS PT HAS OG TUBE TO TUBE FEEDINGS. NEPHROVITE@40ML/HR WITH 50ML FLUSH Q6H. NO BLOOD PRESSURE OR VENIPUNCTURE ON L ARM. IV SITE R AC 20G SL PATENT AND INTACT. L FEMORAL TRIPLE LUMEN RUNNING HEPARIN@700UNITS/HR OR 7ML/HR PATENT AND INTACT. MORPHINE@5MG/HR OR 5ML/HR PATENT AND INTACT. RUNNING ON THE SAME LINE MORPHINE THE VERSED@6MG/HR OR 6ML/HR PATENT AND INTACT. THIRD LINE RUNNING NS@5ML/HR OR TKO AND IVPB PATENT AND INTACT. R IJ PIGTAIL FOR HEMODIALYSIS. SKIN WARM, DRY, AND NOT INTACT. SEE WOUND NOTES. BED LOCKED IN LOW POSITION. CALL CARMEN WITHIN REACH. SAFETY PRECAUTION IN PLACE. ALL NEEDS MET AT THIS TIME. Addendum: 10/05/19 at 0020 by Adam Hoffman RN DRY WEIGHT 59KG.
--- NOTE | 2019-10-04 19:30 | NUR ---
RECEIVED REPORT FROM AM SHIFT. PATIENT SEEN AND ASSESSED. PATIENT IS INTUBATED WITH ETT SIZE 7.5 AND SECURED WITH ANCHOR-FAST AT 21CM. AUSCULTATION REVEAL CLEAR (UL) AND DIMINISHED (LL) BREATH SOUNDS. PATIENT ON VENT SETTINGS AC/VC 25, 350, +10, 40% WITH SPO2 OF 97%. VENT PLUGGED IN RED OUTLET, HOB > 30 DEGREES, BVM AT BEDSIDE, AND ALARMS SET AND AUDIBLE. PATIENT IS IN NO APPARENT RESPIRATORY DISTRESS AT THIS TIME. HHN TX GIVEN ORDERED VIA INLINE AND PATIENT TOLERATED WELL WITH NO ADVERSE REACTION. SUCTIONED SCANT AMOUNT OF YELLOW THICK SECRETIONS FROM ETT. AIRWAY IS PATIENT. WILL CONTINUE TO MONITOR PATIENT.
--- NOTE | 2019-10-04 20:29 | NUR ---
AGNIESZKAO HUNG AND RUNNING. SOLUMEDROL GIVEN IVP. COLACE HELD DUE TO LOOSE STOOLS, NEURONTIN, SODIUM BICARB, AND ZOFRAN GIVEN THROUGH GTUBE. LIDODERM PATCH REMOVED. PREMARIN GIVEN VAGINALLY. CELLCEPT, PROGRAF, AND TRANDATE WILL BE GIVEN AFTER HEMODIALYSIS. RESIDUAL OF 220ML. WILL STOP FEEDING UNTIL RESIDUAL DECREASES.
[2019-10-04] MEDS ORDERED: VANCOMYCIN 750 MG in DEXTROSE 5% 250 ML IV SCH (21:00)
[2019-10-04] MEDS: CONJUGATED ESTROGENS VAG CREAM 42 GM TUBE VG SCH (21:07)
--- NOTE | 2019-10-04 21:45 | NUR ---
MORPHINE AND VERSED NEW BAGS HUNG AND LINES CHANGED.
--- NOTE | 2019-10-04 22:00 | NUR ---
PT TO RECEIVE HEMODIALYSIS.
[2019-10-05] VITALS (104 sets, daily range): BP systolic 122–168; BP diastolic 71–99
--- NOTE | 2019-10-05 00:50 | NUR ---
HD COMPLETE. 1.6L OUT.
[2019-10-05] MEDS: PIPERACILLIN/TAZOBACTAM 2.25 GM in DEXTROSE 5% 50 ML IV SCH ×5 (00:54→23:31)
[2019-10-05] MEDS: LABETALOL 200 MG TAB PO SCH ×4 (01:01→17:35)
[2019-10-05] MEDS: MYCOPHENOLATE 250 MG CAP PO SCH ×3 (01:01→20:41)
[2019-10-05] MEDS: TACROLIMUS 0.5 MG CAP PO SCH ×3 (01:01→20:41)
--- NOTE | 2019-10-05 01:57 | NUR ---
CRITICAL LAB VALUE CALLED IN PTT 121.1. WILL FOLLOW HEPARIN PROTOCOL.
[2019-10-05] MEDS: ALBUTEROL 0.083% 2.5 MG/3 ML NEBU INH SCH (02:17)
[2019-10-05] MEDS: MORPHINE SULFATE 100 MG in NACL 0.9% 90 ML IV PRN ×2 (03:37→14:00)
[2019-10-05] MEDS: MIDAZOLAM MDV 100 MG in NACL 0.9% 80 ML IV PRN ×2 (03:38→11:52)
--- NOTE | 2019-10-05 04:00 | NUR ---
LINEN CHANGED. PERALTA CARE DONE. ORAL CARE DONE.
--- NOTE | 2019-10-05 05:51 | NUR ---
PATIENT STILL REMAINS ON SAME VENT SETTINGS. AIRWAY IS PATENT. ETT IS SECURED AND INTACT. PATIENT IN NO DISTRESS AT THIS TIME. WILL CONTINUE TO MONITOR.
--- NOTE | 2019-10-05 06:02 | NUR ---
CINTIA HUNG AND RUNNING. PT TOLERATING WELL.
--- NOTE | 2019-10-05 07:20 | NUR ---
REPORT RECEIVED FROM RAILWAY SWITCHMAN NURSE AT BEDSIDE. PT IN STABLE CONDITION. AAOX0. PT IS SEDATED. FLACC 0. NO SOB ETT TO VENT. VENT SETTINGS AC V/C FIO2 40%, VT 350, RR 25, PEEP 10. PT HAS PERALTA DRAINING CLEAR STRAW COLORED URINE. RASS-3. PT HAS CHEST TUBE IN PLACE. PT HAS SOFT WRIST RESTRAINTS. PT HAS OG TUBE TO TUBE FEEDINGS. NEPHROVITE@40ML/HR WITH 50ML FLUSH Q6H. NO BLOOD PRESSURE OR VENIPUNCTURE ON L ARM. IV SITE R AC 20G SL PATENT AND INTACT. L FEMORAL TRIPLE LUMEN INFUSING HEPARIN AT 550U/HR OR 5.5 ML/HR PATENT AND INTACT. MORPHINE AT 5MG/HR OR 5ML/HR PATENT AND INTACT. RUNNING ON THE SAME LINE MORPHINE THE VERSED AT 6MG/HR OR 6ML/HR PATENT AND INTACT. THIRD LINE RUNNING NS AT 5ML/HR OR TKO AND IVPB PATENT AND INTACT. R IJ PIGTAIL FOR HEMODIALYSIS. SKIN WARM, DRY, AND NOT INTACT. SKIN NOT INTACT WITH SURGAICAL INSICION PRESENT AT RIGHT HIP. BED LOCKED IN LOW POSITION. CALL CARMEN WITHIN REACH. SAFETY PRECAUTION IN PLACE. ALL NEEDS MET AT THIS TIME. WILL CONTINUE TO MONITOR.
--- NOTE | 2019-10-05 07:25 | NUR ---
REPORT GIVEN TO AM NURSE AT BEDSIDE. PT IN STABLE CONDITION.
[2019-10-05 08:08] LABS: HEMOGLOBIN 9.9 g/dL (12.0-16.0); MEAN CORPUSCULAR HEMOGLOBIN 30 pg (27-31); MEAN CORPUSCULAR HGB CONC 32 g/dL (33-37); MEAN CORPUSCULAR VOLUME 92.4 fL (80-94); PLATELET COUNT (AUTO) 506 K/uL (140-450); RED BLOOD CELL COUNT(AUTO) 3.36 MIL/uL (4.20-5.40); RED CELL DISTRIBUTION WIDTH 14.4 % (11.6-13.7); WHITE BLOOD COUNT (AUTO) 18.8 K/uL (4.8-10.8)
--- NOTE | 2019-10-05 08:30 | NUR ---
PHARMACYANGEL LUIS, CALLED ABOUT PTT VALUE OF 28.7. HEPARIN RATE INCREASED TO 7.5ML/HR, AND BOLUS OF 4600 UNITS HEPARIN GIVEN. WILL CONTINUE TO MONITOR.
[2019-10-05 08:33] LABS: ANION GAP 17.8 (8-16); CARBON DIOXIDE 26.3 mmol/L (21-32); CREATININE 3.3 mg/dL (0.6-1.3); POTASSIUM 4.1 mmol/L (3.5-5.1)
[2019-10-05 08:36] LABS: MAGNESIUM 1.9 mg/dL (1.8-2.4); PHOSPHORUS 5.7 mg/dL (2.5-4.9)
--- NOTE | 2019-10-05 09:00 | NUR ---
DR. CARDENAS BY THE BEDSIDE. DISCUSSED POSSIBLE TRANSFER OF PT. TO [facility] FOR POSSIBLE KIDNEY TRANSPLANT REJECTION. NEW ORDERS FOR HEMODIALYSIS TOMORROW, 10/06/2019 , WILL CONTINUE TO MONITOR.
[2019-10-05] MEDS: VITAMIN D 400 IU TAB PO SCH (09:10)
[2019-10-05] MEDS: ONDANSETRON 4 MG/5 ML ORASYR PO SCH ×2 (09:12→20:41)
[2019-10-05 09:15] LABS: LYMPHOCYTES % (MANUAL) 4 % (20-46); MONOCYTES % (MANUAL) 2 % (5-12)
[2019-10-05] MEDS: DOCUSATE 100 MG/10 ML UDC PO SCH ×2 (09:16→20:42)
[2019-10-05] MEDS: ASCORBIC ACID 500 MG/5 ML ORASYR PO SCH (09:16)
[2019-10-05] MEDS: methylPREDNISolone SS 40 MG/ML VIAL IVP SCH ×2 (09:17→20:42)
[2019-10-05] MEDS: SODIUM BICARBONATE 650 MG TAB PO SCH ×2 (09:18→20:42)
[2019-10-05] MEDS: FAMOTIDINE 20 MG TAB PO SCH (09:19)
[2019-10-05] MEDS: GABAPENTIN 300 MG CAP PO SCH ×2 (09:20→20:41)
[2019-10-05] MEDS: ZINC SULF 220 MG CAP PO SCH (09:20)
[2019-10-05] MEDS: amLODIPine 5 MG TAB PO SCH (09:21)
[2019-10-05] MEDS: LACTOBACILLUS RHAMNOSUS GG 1 EACH CAP PO SCH (09:22)
[2019-10-05] MEDS: VIT-B COMP/VIT-C/FOLIC ACID 1 TAB PO SCH (09:23)
[2019-10-05] MEDS: EZETIMIBE 10 MG TAB PO SCH (09:24)
[2019-10-05] MEDS: FLUTICASONE NASAL 50 MCG/ACTUATION 16 GM BTL NS SCH (09:30)
--- NOTE | 2019-10-05 09:30 | NUR ---
DR. GREWAL BY THE BEDSIDE. DECREASED PEEP FROM 10 TO 7, ASSESSED CHEST TUBE DRAINAGE. NO NEW ORDERS GIVEN. WILL CONTINUE TO MONITOR.
[2019-10-05] MEDS: LIDOCAINE 5% 1 EA PATCH TP SCH (09:31)
[2019-10-05] MEDS: [UNRECOGNIZED DRUG - MIXTURE] PO SCH (09:32)
--- NOTE | 2019-10-05 10:57 | NUR ---
VENT CHECK COMPLETED AND ABG DRAWN PH 7.42 CO2 36.6 HCO3 23.4 BE -8 ON 40% ICU NURSE FANG AND DR BALL WERE INFORMED
--- NOTE | 2019-10-05 11:14 | NUR ---
CALLED FNSÓSCAR, ABOUT TUBE FEEDING. RESIDUAL PRESENT AT 200ML. ÓSCAR SUGGESTION TO LOWER FEEDING RATE TO 20ML/HR IF RESIDUAL IS STILL MORE THAN 200ML, AFTER RECHECKING IN 1 HOUR. WILL FOLLOW THROUGH AND CONTINUE TO MONITOR.
--- NOTE | 2019-10-05 12:15 | NUR ---
AFTERNOON MEDICATIONS GIVEN. PT. IS CHANGED, CLEANED AND TURNED. NO SIGNS OF DISTRESS NOTED. BP 159/80, HR 71. TUBE FEEDING RESIDUAL OF 180. TUBE FEEDING IS STOPPED. WILL CONTINUE TO MONITOR.
--- NOTE | 2019-10-05 12:50 | NUR ---
DR. OWENS BY THE BEDSIDE IN REGARDS TO DIALYSIS PORT. NO SIGNS OF BLEEDING OR DISTRESS FROM THE PORT. DR. OWENS IS AWARE AND WILL CONTINUE TO MONITOR.
--- NOTE | 2019-10-05 13:25 | NUR ---
10/05/19 RD FOLLOW UP COMPLETED PLEASE REFER TO NUTRITION ASSESSMENT UNDER CARE ACTIVITY FOR ESTIMATED NUTRITIONAL NEEDS. 1. CONTINUE NEPRO 1.8 @ 40 ML/HR X 24 HR OR TOTAL OF 960 ML/DAY. START AT 10 ML/HR AND INCREASE BY 10ML/HR Q6H -THIS WILL PROVIDE 960 ML OF VOLUME, 1728 CALORIES AND 78 GM OF PROTEIN WHICH MEETS 100% OF ESTIMATED NEEDS 2. CONTINUE FREE WATER FLUSH OF 50 ML Q6H 3. CONTINUE NEPHRO-RADHA DAILY 4. IF/WHEN PT IS EXTUBATED CONSIDER ORDERING SWALLOW EVALUATION FOR PO DIET 5. RD TO FOLLOW-UP 2-3 DAYS, HIGH RISK ÓSCAR JAIME, MIKE
--- NOTE | 2019-10-05 13:50 | NUR ---
DISCUSSED TO ÓSCAR MCKEON, ABOUT STOPPING OGT FEEDING FOR RESIDUAL OF 160. ACKNOWLEDGES AND WILL CONTINUE TO MONITOR.
--- NOTE | 2019-10-05 17:30 | NUR ---
AFTERNOON MEDICATIONS GIVEN. NO SIGNS OF DISTRESS NOTED. RESIDUAL OF 45ML NOTED, CONTINUED TUBE FEEDING. WILL CONTINUE TO MONITOR.
--- NOTE | 2019-10-05 18:20 | NUR ---
I WAS UNABLE TO DO 1300 VENT CHECK DUE TO RAPID RESPONSE/CODE
--- NOTE | 2019-10-05 19:30 | NUR ---
ENDORSED TO BOX CAR LOADER NURSERAINER, FOR CONTINUITY OF CARE.
--- NOTE | 2019-10-05 19:31 | NUR ---
REPORT RECEIVED FROM AM NURSE AT BEDSIDE. PT IN STABLE CONDITION. AAOX0. PT IS SEDATED. FLACC 0. NO SOB ETT TO VENT. VENT SETTINGS AC V/C FIO2 40%, VT 350, RR 25, PEEP 7. PT HAS PERALTA DRAINING CLEAR STRAW COLORED URINE. RASS-3. PT HAS CHEST TUBE IN PLACE. PT HAS SOFT WRIST RESTRAINTS. PT HAS OG TUBE TO TUBE FEEDINGS. NEPHROVITE@40ML/HR WITH 50ML FLUSH Q6H. NO BLOOD PRESSURE OR VENIPUNCTURE ON L ARM. IV SITE R AC 20G SL PATENT AND INTACT. L FEMORAL TRIPLE LUMEN INFUSING HEPARIN AT 550U/HR OR 5.5 ML/HR PATENT AND INTACT. MORPHINE AT 5MG/HR OR 5ML/HR PATENT AND INTACT. RUNNING ON THE SAME LINE MORPHINE THE VERSED AT 6MG/HR OR 6ML/HR PATENT AND INTACT. THIRD LINE RUNNING NS AT 5ML/HR OR TKO AND IVPB PATENT AND INTACT. R IJ PIGTAIL FOR HEMODIALYSIS. SKIN WARM, DRY, AND NOT INTACT. SKIN NOT INTACT WITH SURGAICAL INSICION PRESENT AT RIGHT HIP. BED LOCKED IN LOW POSITION. CALL CARMEN WITHIN REACH. SAFETY PRECAUTION IN PLACE. ALL NEEDS MET AT THIS TIME. WILL CONTINUE TO MONITOR. Addendum: 10/05/19 at 2316 by Adam Hoffman RN DRY WEIGHT 57KG. HEPARIN@750UNITS/HR OR 7.5ML/HR.
--- NOTE | 2019-10-05 20:40 | NUR ---
SOLUMEDROL GIVEN IVP. CELLCEPT, NEURONTIN, PROGRAF, SODIUM BICARB, AND ZOFRAN GIVEN THROUGH OGTUBE. PREMARIN GIVEN VAGINALLY. COLACE HELD DUE TO LOOSE STOOLS. RESIDUAL OF 40ML. FEEDING TOLERATED WELL.
--- NOTE | 2019-10-05 21:00 | NUR ---
CRITICAL VALUE CALLED IN FOR PTT 40.5. 2300UNIT BOLUS OF HEPARIN GIVEN. INCREASED DRIP FROM 750UNITS/HR TO 850UNITS/HR PER PROTOCOL.
[2019-10-05] MEDS: CONJUGATED ESTROGENS VAG CREAM 42 GM TUBE VG SCH (21:03)
--- NOTE | 2019-10-05 21:30 | NUR ---
LIDODERM PATCH REMOVED.
--- NOTE | 2019-10-05 23:31 | NUR ---
CINTIA HUNG AND RUNNING.
[2019-10-06] VITALS (107 sets, daily range): BP systolic 92–176; BP diastolic 54–101
--- NOTE | 2019-10-06 00:20 | NUR ---
NEW TORI ARRIAGA FOR CONTINUOUS DRIP. Addendum: 10/06/19 at 0323 by Adam Hoffman RN ORAL CARE DONE.
[2019-10-06] MEDS: MIDAZOLAM MDV 100 MG in NACL 0.9% 80 ML IV PRN ×2 (00:21→15:58)
--- NOTE | 2019-10-06 02:15 | NUR ---
PT LAYING COMFORTABLY ON MODERATE SEDATION. NO S/S OF DISTRESS NOTED.
--- NOTE | 2019-10-06 03:57 | NUR ---
CRITICAL LAB VALUE PTT@54.3. WILL FOLLOW PROTOCOL.
[2019-10-06] MEDS: PIPERACILLIN/TAZOBACTAM 2.25 GM in DEXTROSE 5% 50 ML IV SCH ×3 (05:04→17:56)
--- NOTE | 2019-10-06 05:04 | NUR ---
CINTIA HUNG AND RUNNING.
[2019-10-06 06:00] LABS: HEMATOCRIT 31.2 % (36-48); HEMOGLOBIN 10.1 g/dL (12.0-16.0); MEAN CORPUSCULAR HEMOGLOBIN 30 pg (27-31); MEAN CORPUSCULAR HGB CONC 32 g/dL (33-37); MEAN CORPUSCULAR VOLUME 92.1 fL (80-94); PLATELET COUNT (AUTO) 498 K/uL (140-450); RED BLOOD CELL COUNT(AUTO) 3.39 MIL/uL (4.20-5.40); RED CELL DISTRIBUTION WIDTH 14.4 % (11.6-13.7); WHITE BLOOD COUNT (AUTO) 16.7 K/uL (4.8-10.8)
--- NOTE | 2019-10-06 06:30 | NUR ---
FABIAN CARE DONE. PT HAD A BM. PT CLEANED UP. PT LINENS CHANGED. ORAL CARE DONE. CHEST TUBE OUTPUT 15ML. PT TURNED. Addendum: 10/06/19 at 0659 by Adam Hoffman RN FEEDING CHANGED.
[2019-10-06 06:37] LABS: TACROLIMUS 29 ng/mL (2.0 - 20.0)
[2019-10-06 06:55] LABS: MAGNESIUM 2.2 mg/dL (1.8-2.4); PHOSPHORUS 6.5 mg/dL (2.5-4.9)
[2019-10-06 07:10] LABS: ANION GAP 17.6 (8-16); CARBON DIOXIDE 24.6 mmol/L (21-32); CREATININE 3.8 mg/dL (0.6-1.3); POTASSIUM 4.2 mmol/L (3.5-5.1)
[2019-10-06 07:25] LABS: LYMPHOCYTES % (MANUAL) 4 % (20-46); MONOCYTES % (MANUAL) 5 % (5-12)
--- NOTE | 2019-10-06 07:30 | NUR ---
RECEIVED CHANGE OF SHIFT REPORT FROM BODYBUILDER NURSE. PT IS FOUND ON BED W/ HOB 30 DEGREES. PT IS NOT AROUSABLE TO VOICE. EYES ARE PERRL. 3MM. PT IS INTUBATED SIZE 7.5 SECURED W/ ANCHOR 21 TO THE TEETH. VENT SETTINGS ARE A/CVC FIO2 40% VT 350 RATE 25 PEEP 7. LUNG SOUNDS ARE RHONCHI AND DIMINISHED THROUGHOUT. EQUAL RISE AND FALL OF CHEST. +2 RADIAL PULSES FELT. CAP REFILL <3 SECONDS. PT IS ON SOFT WRIST RESTRAINTS. SKIN UNDERNEATH IS INTACT. PT HAS SURGICAL WOUND OF THE RIGHT HIP THAT IS SUTURED AND DRESSED. DRESSING IS DCI. PT HAS NON-PITTING EDEMA OF THE RIGHT ARM. PT HAS RIGHT TUNNELED CATHETER AND LEFT FEMORAL CATHETER. BOTH LINES ARE ASYMPTOMATIC, PATENT AND INTACT. PT ALSO HAS RIGHT AC. HOWEVER, UPON INSPECTION, PIV CATHETER WAS NEARLY TAKEN OUT. WILL D/C LINE. PT HAS HEPARIN RUNNING AT 850 UNITS/ HR (8.5 ML/HR), MORPHINE 5 MG/HR, AND VERSED 6 MG/HR. RASS -3. DRY WEIGHT IS 57 KG. PT HAS RIGHT CHEST TUBE THAT MEASURES 110 OUTPUT UPON INITIAL ASSESSMENT. OUTPUT IS SEROSANGUINEOUS. PT HAS OGT CONNECTED TO CONTINUOUS FEEDING NEPRO RUNNING AT ML/HR W/ FWF 50 ML Q6HR. PLACEMENT CONFIRMED VIA AIR AUSCULTATION. 150 ML OF GASTRIC RESIDUALS WERE PULL OUT. FEEDING WAS STOPPED. PERALTA CATHETER NOTED W/ CLEAR YELLOW URINE INSIDE OF BAG. BED IS LOCKED IN LOW POSITION. CALL LIGHT WITHIN REACH. WILL CONTINUE TO MONITOR.
[2019-10-06] MEDS: MORPHINE SULFATE 100 MG in NACL 0.9% 90 ML IV PRN (07:54)
[2019-10-06] MEDS: ALBUTEROL 0.083% 2.5 MG/3 ML NEBU INH SCH ×3 (07:56→19:00)
--- NOTE | 2019-10-06 07:56 | NUR ---
RECEIVED INTUBATED PT WITH A 7.5 ETT SECURED @21 TEETH/GUM ON VENT. SETTINGS A/C VC 25, VT 350, PEEP 7 AND FIO2 40%. PT IS SEDATED AT THIS TIME NOT IN ANY DISTRESS. ETT IS SECURE WITH A PATENT AIRWAY. VENT IS PLUGGED INTO A RED OUTLET WITH ALARMS ON AND FUNCTIONING. WILL CONTINUE TO MONITOR.
[2019-10-06] MEDS: hePARIN / DEXT 5% PREMIX 250 ML IV SCH (08:01)
[2019-10-06] MEDS: VITAMIN D 400 IU TAB PO SCH (09:11)
[2019-10-06] MEDS: ONDANSETRON 4 MG/5 ML ORASYR PO SCH ×2 (09:11→21:55)
[2019-10-06] MEDS: LIDOCAINE 5% 1 EA PATCH TP SCH (09:12)
--- NOTE | 2019-10-06 09:30 | NUR ---
GASTRIC RESIDUALS REMAIN AT 150ML. WILL KEEP FEEDING OFF AT THIS TIME.
[2019-10-06] MEDS: FLUTICASONE NASAL 50 MCG/ACTUATION 16 GM BTL NS SCH (09:33)
[2019-10-06] MEDS: MYCOPHENOLATE 250 MG CAP PO SCH ×2 (09:42→21:55)
[2019-10-06] MEDS: ASCORBIC ACID 500 MG/5 ML ORASYR PO SCH (09:43)
[2019-10-06] MEDS: EZETIMIBE 10 MG TAB PO SCH (09:44)
[2019-10-06] MEDS: DOCUSATE 100 MG/10 ML UDC PO SCH ×2 (09:44→21:55)
[2019-10-06] MEDS: amLODIPine 5 MG TAB PO SCH (09:44)
[2019-10-06] MEDS: GABAPENTIN 300 MG CAP PO SCH ×2 (09:44→21:55)
[2019-10-06] MEDS: methylPREDNISolone SS 40 MG/ML VIAL IVP SCH ×2 (09:45→21:55)
[2019-10-06] MEDS: LACTOBACILLUS RHAMNOSUS GG 1 EACH CAP PO SCH (09:45)
[2019-10-06] MEDS: LOSARTAN 50 MG TAB PO SCH (09:45)
[2019-10-06] MEDS: ZINC SULF 220 MG CAP PO SCH (09:46)
[2019-10-06] MEDS: VIT-B COMP/VIT-C/FOLIC ACID 1 TAB PO SCH (09:46)
[2019-10-06] MEDS: FAMOTIDINE 20 MG TAB PO SCH (09:46)
[2019-10-06] MEDS: [UNRECOGNIZED DRUG - MIXTURE] PO SCH (09:47)
[2019-10-06] MEDS: LABETALOL 200 MG TAB PO SCH ×3 (09:47→17:52)
[2019-10-06] MEDS: TACROLIMUS 0.5 MG CAP PO SCH ×2 (10:07→21:55)
--- NOTE | 2019-10-06 11:36 | NUR ---
PEEP DECREASED BY TO 5cmH2O. WILL CONTINUE TO MONITOR.
--- NOTE | 2019-10-06 12:55 | NUR ---
DIALYSIS NURSE AT BEDSIDE. STARTED HEMODIALYSIS
--- NOTE | 2019-10-06 13:39 | NUR ---
DIALYSIS NURSE NOTED THAT RIGHT CATHETER IS NOT WORKING AND THAT HE HAD TO STOPPED DIALYSIS. DR. OWENS WILL PLACE PERMACAT. DR. BROWNE MADE AWARE AND WILL GET CONSENT FROM FAMILY. Addendum: 10/06/19 at 1341 by Rio Bazzi RN RN DIALYSIS NURSE ALSO MENTIONED 500 OUT
--- NOTE | 2019-10-06 15:27 | NUR ---
PT NOT IN ANY DISTRESS AT THIS TIME. TOLERATING VENT SETTINGS WELL. WILL CONTINUE TO MONITOR.
[2019-10-06] MEDS ORDERED: HEPARIN PER PHARMACY MC PRN (15:45)
[2019-10-06] MEDS ORDERED: hePARIN / DEXT 5% PREMIX 250 ML IV SCH (15:45)
--- NOTE | 2019-10-06 16:30 | NUR ---
PMI STAFF AT PT BEDSIDE FOR V/Q SCAN
--- NOTE | 2019-10-06 17:00 | NUR ---
PT HAD BOWEL MOVEMENT. PT WAS CLEANED W/ ASSISTANCE OF CHARGE NURSE. FEMORAL LINE DRESSING WAS CHANGED.
--- NOTE | 2019-10-06 17:25 | NUR ---
PT REMAINS ON DOCUMENTED VENT SETTINGS. PT SEDATED NOT IN ANY DISTRESS AT THIS TIME. PT SUCTIONED OBTAINED THICK SECRETIONS, AIRWAY IS PATENT AND SECURE. VENT ALARMS ON AND FUNCTIONING.
--- NOTE | 2019-10-06 18:10 | NUR ---
PROVIDED 1800 MEDICATIONS. PT IS AROUSABLE TO VOICE. PT WAS INFORMED OF THE DATE AND TIME AND THAT SHE WAS INTUBATED. PT WAS RESPONSIVE. PT ALSO STATED THAT SHE DOES NOT HAVE PAIN. UO 850. CHEST TUBE OUTPUT IS 10ML (120 INSIDE CHAMBER).PT IN NO APPARENT DISTRESS. BP IS 163/62, RR 25, SPO2 100%, HR 71, TEMP 97.1. HOB 30 DEGREES, BED IN LOW POSITION AND LOCKED. CALL LIGHT WITHIN REACH. WILL CONTINUE TO MONITOR.
--- NOTE | 2019-10-06 19:10 | NUR ---
GAVE CHANGE OF SHIFT REPORT TO DIRECTOR OF CUSTOMER ACQUISITION NURSE TO ENSURE CONTINUITY OF CARE
--- NOTE | 2019-10-06 19:18 | NUR ---
REPORT RECEIVED FROM AM NURSE AT BEDSIDE. PT IN STABLE CONDITION. AAOX0. PT IS SEDATED. FLACC 0. NO SOB ETT TO VENT. VENT SETTINGS AC V/C FIO2 40%, VT 350, RR 25, PEEP 7. PT HAS PERALTA DRAINING CLEAR STRAW COLORED URINE. RASS-3. PT HAS CHEST TUBE IN PLACE. PT HAS SOFT WRIST RESTRAINTS. PT HAS OG TUBE TO TUBE FEEDINGS. NEPHROVITE@40ML/HR WITH 50ML FLUSH Q6H. NO BLOOD PRESSURE OR VENIPUNCTURE ON L ARM. L FEMORAL TRIPLE LUMEN INFUSING HEPARIN AT 950UNITS/HR OR 5.5 ML/HR PATENT AND INTACT. MORPHINE AT 5MG/HR OR 5ML/HR PATENT AND INTACT. RUNNING ON THE SAME LINE MORPHINE THE VERSED AT 6MG/HR OR 6ML/HR PATENT AND INTACT. THIRD LINE RUNNING NS AT 5ML/HR OR TKO AND IVPB PATENT AND INTACT. R IJ PIGTAIL FOR HEMODIALYSIS. SKIN WARM, DRY, AND NOT INTACT. SKIN NOT INTACT WITH SURGICAL INSICION PRESENT AT RIGHT HIP. BED LOCKED IN LOW POSITION. CALL CARMEN WITHIN REACH. SAFETY PRECAUTION IN PLACE. ALL NEEDS MET AT THIS TIME. WILL CONTINUE TO MONITOR.
[2019-10-06] MEDS ORDERED: VANCOMYCIN 750 MG in DEXTROSE 5% 250 ML IV SCH (21:00)
[2019-10-06] MEDS: CONJUGATED ESTROGENS VAG CREAM 42 GM TUBE VG SCH (21:55)
--- NOTE | 2019-10-06 21:55 | NUR ---
SOLUMEDROL GIVEN IVP. COLACE HELD DUE TO LOOSE STOOLS. CELLCEPT, NEURONTIN, PROGRAF, AND ZOFRAN GIVEN THROUGH GTUBE. VANCO HUNG AND RUNNING. PREMARIN GIVEN INTRAVAGINALLY. LIDODERM PATCH REMOVED.
--- NOTE | 2019-10-06 21:58 | NUR ---
RESTARTED HEPARIN AND DECREASED BY 150 UNITS/HR PER PROTOCOL.
--- NOTE | 2019-10-06 22:15 | NUR ---
PT CLEANED AND TURNED. NEW PERALTA SECUREMENT IN PLACE. CENTRAL LINE DRESSING L FEMORAL CHANGED. ORAL CARE DONE.
--- NOTE | 2019-10-06 22:30 | NUR ---
NOTICED A DTI UNSTAGEABLE ON RIGHT BUTTOCKS. MD NOTIFIED. PICTURE TAKEN. Addendum: 10/06/19 at 2331 by Adam Hoffman RN HYDRAGAURD APPLIED. 4X4 OPTIFOAM APPLIED.
[2019-10-06] MEDS ORDERED: Z-GUARD PASTE TP ONE (22:39)
[2019-10-06] MEDS ORDERED: HYDRAGUARD CREAM TP SCH (23:00)
[2019-10-07] VITALS (102 sets, daily range): BP systolic 111–165; BP diastolic 58–95
[2019-10-07] MEDS: PIPERACILLIN/TAZOBACTAM 2.25 GM in DEXTROSE 5% 50 ML IV SCH ×5 (00:13→23:26)
--- NOTE | 2019-10-07 00:13 | NUR ---
CINTIA HUNG AND RUNNING. PT TOLERATING WELL.
[2019-10-07] MEDS ORDERED: hydrALAZINE 20 MG/ML VIAL IVP PRN (00:20)
--- NOTE | 2019-10-07 02:01 | NUR ---
HYDRALAZINE GIVEN FOR BP OF 165/88 HR 65. WILL CONTINUE TO MONITOR.
[2019-10-07] MEDS: ALBUTEROL 0.083% 2.5 MG/3 ML NEBU INH SCH ×4 (02:47→19:30)
[2019-10-07 05:19] LABS: HEMATOCRIT 30.9 % (36-48); HEMOGLOBIN 9.9 g/dL (12.0-16.0); MEAN CORPUSCULAR HEMOGLOBIN 30 pg (27-31); MEAN CORPUSCULAR HGB CONC 32 g/dL (33-37); MEAN CORPUSCULAR VOLUME 93.1 fL (80-94); PLATELET COUNT (AUTO) 491 K/uL (140-450); RED BLOOD CELL COUNT(AUTO) 3.32 MIL/uL (4.20-5.40); RED CELL DISTRIBUTION WIDTH 13.8 % (11.6-13.7); WHITE BLOOD COUNT (AUTO) 22.6 K/uL (4.8-10.8)
[2019-10-07 05:27] LABS: ANION GAP 16.8 (8-16); CARBON DIOXIDE 26.8 mmol/L (21-32); CREATININE 3.9 mg/dL (0.6-1.3); POTASSIUM 4.6 mmol/L (3.5-5.1)
[2019-10-07 05:28] LABS: PHOSPHORUS 7.1 mg/dL (2.5-4.9)
--- NOTE | 2019-10-07 05:30 | NUR ---
MORPHINE HUNG FOR CONTINUOUS DRIP.
[2019-10-07 06:09] LABS: LYMPHOCYTES % (MANUAL) 3 % (20-46); MONOCYTES % (MANUAL) 2 % (5-12)
--- NOTE | 2019-10-07 06:16 | NUR ---
CINTIA HUNG AND RUNNING.
[2019-10-07] MEDS: MORPHINE SULFATE 100 MG in NACL 0.9% 90 ML IV PRN (06:19)
--- NOTE | 2019-10-07 06:20 | NUR ---
CRITICAL LAB VALUE BUN 72. CREATININE 3.9. NOTIFIED. AWAITING ORDERS.
--- NOTE | 2019-10-07 07:18 | NUR ---
REPORT GIVEN TO AM NURSE AT BEDSIDE. PT IN STABLE CONDITION.
[2019-10-07] MEDS: ASCORBIC ACID 500 MG/5 ML ORASYR PO SCH (08:21)
[2019-10-07] MEDS: TACROLIMUS 0.5 MG CAP PO SCH ×2 (08:21→21:01)
[2019-10-07] MEDS: amLODIPine 5 MG TAB PO SCH (08:22)
[2019-10-07] MEDS: methylPREDNISolone SS 40 MG/ML VIAL IVP SCH ×2 (08:22→20:59)
[2019-10-07] MEDS: LABETALOL 200 MG TAB PO SCH ×3 (08:23→17:19)
[2019-10-07] MEDS: FAMOTIDINE 20 MG TAB PO SCH (08:23)
[2019-10-07] MEDS: LOSARTAN 50 MG TAB PO SCH (08:23)
[2019-10-07] MEDS: VIT-B COMP/VIT-C/FOLIC ACID 1 TAB PO SCH (08:24)
[2019-10-07] MEDS: GABAPENTIN 300 MG CAP PO SCH ×2 (08:24→20:59)
[2019-10-07] MEDS: ZINC SULF 220 MG CAP PO SCH (08:24)
[2019-10-07] MEDS: LACTOBACILLUS RHAMNOSUS GG 1 EACH CAP PO SCH (08:24)
[2019-10-07] MEDS: EZETIMIBE 10 MG TAB PO SCH (08:24)
[2019-10-07] MEDS: LIDOCAINE 5% 1 EA PATCH TP SCH (08:25)
[2019-10-07] MEDS: MYCOPHENOLATE 250 MG CAP PO SCH ×2 (08:26→21:02)
[2019-10-07] MEDS: ONDANSETRON 4 MG/5 ML ORASYR PO SCH ×2 (08:26→21:02)
[2019-10-07] MEDS: VITAMIN D 400 IU TAB PO SCH (08:26)
[2019-10-07] MEDS: FLUTICASONE NASAL 50 MCG/ACTUATION 16 GM BTL NS SCH (08:27)
[2019-10-07] MEDS: [UNRECOGNIZED DRUG - MIXTURE] PO SCH (08:28)
[2019-10-07] MEDS: DOCUSATE 100 MG/10 ML UDC PO SCH ×2 (08:28→20:59)
--- NOTE | 2019-10-07 09:05 | NUR ---
RECIVED PT ON VENT WITH SETTINGS CHARTED BREATH SOUNDS DIMINISHED SXN SMALL AMT OFF WHITE ETT SECURE VENT PLUGGED INTO RED OUTLET ANBU BAG AT BEDSIDE WILL CONTINUE TO MONITOR
[2019-10-07] MEDS: MIDAZOLAM MDV 100 MG in NACL 0.9% 80 ML IV PRN (10:56)
--- NOTE | 2019-10-07 11:30 | NUR ---
STARTED SEDATION VACATION. PERFORMED WOUND ASSESSMENT. WOUND MEASUREMENTS 0.5X0.7 CM AND 1.2X0.2CM. PT IS AROUSABLE TO VOICE AND LIGHT TOUCH. NO APPARENT DISTRESS DURING WOUND ASSESSMENT. WILL CONTINUE TO MONITOR.
--- NOTE | 2019-10-07 12:30 | NUR ---
PT REMAINS OFF OF SEDATION. PT IS AROUSABLE TO VOICE AND LIGHT TOUCH. HOWEVER, SHE IS UNABLE TO FOLLOW SIMPLE COMMANDS. NO APPARENT DISTRESS NOTED. WILL ATTEMPT CPAP TRIAL
--- NOTE | 2019-10-07 13:00 | NUR ---
RT ATTEMPTED CPAP TRIAL, HOWEVER SHE FAILED DUE TO INTOLERABILITY OF CPAP. PT WILL BE PLACE BACK ONTO A/CVC FIO2 35% RATE 25 PEEP 5
--- NOTE | 2019-10-07 13:05 | NUR ---
ATTEMPTE TO WEAN PT ON CPAP PEEP PS 10 PT UNABLE TO BEVERLY AT ALL STILL SEEMS SEDATED RN AWARE
--- NOTE | 2019-10-07 13:07 | NUR ---
10/07/19 RD FOLLOW UP COMPLETED PLEASE REFER TO NUTRITION ASSESSMENT UNDER CARE ACTIVITY FOR ESTIMATED NUTRITIONAL NEEDS. 1. CONTINUE NEPRO 1.8 @ 40 ML/HR X 24 HRS OR TOTAL OF 960 ML/DAY. START AT 10 ML/HR AND INCREASE BY 10ML/HR Q6H -THIS WILL PROVIDE 960 ML OF VOLUME, 1728 CALORIES AND 78 GM OF PROTEIN WHICH MEETS 100% OF ESTIMATED NEEDS 2. CONTINUE FREE WATER FLUSH OF 50 ML Q6H 3. CONTINUE NEPHRO-RADHA DAILY 4. IF/WHEN PT IS EXTUBATED CONSIDER ORDERING SWALLOW EVALUATION FOR PO DIET 5. RD TO FOLLOW-UP 2-3 DAYS, HIGH RISK JESICA JACOBSON, MIKE
--- NOTE | 2019-10-07 13:48 | NUR ---
RESTARTED SEDATION W/ DECREASE OF MORPHINE FROM 5 MG/HR TO 4 MG/HR AND VERSED FROM 6MG/HR TO 5 MG/HR DUE TO RASS -4. DOCTOR NIKA MADE AWARE.
--- NOTE | 2019-10-07 17:25 | NUR ---
CONTINUED TO MONIOR PTON VENT WITH SETTINGS CHARTED BREATH SOUNDS PRESENT DIMINISHD SXN PT WITH MIN TO MOD AMT OFF WHITE SECS AMBU BAG BEDSIDE VENT PUGGED INTO RED OUTLET
--- NOTE | 2019-10-07 19:29 | NUR ---
REPORT GIVEN TO OBSTETRICAL TECH NURSE TO ENSURE CONTINUITY OF CARE.
--- NOTE | 2019-10-07 19:30 | NUR ---
ASSUMED CARE OF PT.INITIAL ASSESSMENT COMPLETED.PT SEDATED.OPENS EYES WHEN REPOSITIONED.ETT TO VENT FIO2 35% TV350 RATE 25 PEEP 5.W/OGT INTACT.NO RESIDUAL.ON TUBE FEEDING NEPRO AT 45ML/HR WITH WATER FLUSH.W/RT IJ MARY CATH WITH PIGTAIL W/DRY AND INTACT DRESSING.WITH LT FEMORAL MARY CATHETER WITH PIGTAIL INTACT.INFUSING IVF AT 5ML/HR TO THE PIGTAIL, BLUE PORT HAS VERSED DRIP AT 5MG/HR AND RED PORT WITH MORPHINE DRIP AT 4MG/HR.PIGTAIL FLUSHED,WITH GOOD BLOOD RETURN.PLACED Y PORT TO THE PIGTAIL AND CONNECTED MORPHINE AND VERSED. CLMAPED BLUE AND RED PORT.WITH CHEST TUBE TO RT SIDE INTACT.SMALL AMT OF LIGHT RED OUTPUT NOTED.W/PERALTA CATHETER TO BSD DRAINING SMALL AMT OF YELLOW URINE.W/ 2 SMALL DISCOLORED AREA TO RT BUTTOCKS;FOAM DRESSING DRY AND INTACT.FLACC 0.WITH BILATERAL SOFT WRIST RESTRAINTS ALSO IN PLACE.
--- NOTE | 2019-10-07 20:00 | NUR ---
PHONE CALL TO DR ZAVALETA;INFORMED DR ZAVALETA THAT PT HAS ORDER TO DC RT FEMORAL LINE SINCE YESTERDAY; VERIFIED WITH HER IF SHE STILL WANTS NURSE TO DC IT NOW; SHE SAID LEAVE IT FOR NOW; SHE WILL DISCUSS WITH OTHER PHYSICIAN TOMORROW IF LINE STILL NEEDS TO BE DC'D.ALSO INFORMED HER THAT THE SAID LINE LT FEMORAL IS BEING USED FOR IV ACCESS; SHE SAID "APPARENTLY" ITS BEING USED AND IF NURSE COULD INSERT A PERIPHERAL; INFORMED DR ZAVALETA THAT PT IS HARD STICK AND CAN ONLY USE ONE LIMB FOR IV.
--- NOTE | 2019-10-07 21:00 | NUR ---
BM NOTED.LARGE AMT OF BROWNISH SOFT STOOL.PT CLEANED.REPOSITIONED.ORAL CARE USING VAP KIT RENDERED
[2019-10-07] MEDS: CONJUGATED ESTROGENS VAG CREAM 42 GM TUBE VG SCH (21:03)
--- NOTE | 2019-10-07 23:06 | NUR ---
PHONE CALL FROM PTS FAMILY,LINDSEY, UPDATED ON PTS PRESENT CONDITION.QUESTIONS ANSWERED.
[2019-10-08] VITALS (99 sets, daily range): BP systolic 128–171; BP diastolic 65–100
--- NOTE | 2019-10-08 00:45 | NUR ---
PT STILL SEDATED.REPOSITIONED.CHEST TUBE INTACT.PERALTA CATHETER INTACT.FLACC 0
[2019-10-08] MEDS: ALBUTEROL 0.083% 2.5 MG/3 ML NEBU INH SCH ×4 (01:11→19:20)
--- NOTE | 2019-10-08 02:00 | NUR ---
PTS CONDITION REMAINS UNCHANGED.FLACC 0.REPOSITIONED
--- NOTE | 2019-10-08 04:00 | NUR ---
ORAL CARE DONE.PT REPOSITINED.NO SOB NOTED.STILL SEDATED ON MORPHINE AND VERSED DRIPS. NEW PERIPHERAL IV PLACED TO RT WRIST G22; VERSED DRIP ,MORPHINE DRIP AND IVF CONNECTED TO IV.WILL CONTINUE TO MONITOR FOR SIGNS OF INFILTRATION
[2019-10-08 05:07] LABS: HEMATOCRIT 30.8 % (36-48); HEMOGLOBIN 9.7 g/dL (12.0-16.0); MEAN CORPUSCULAR HEMOGLOBIN 29 pg (27-31); MEAN CORPUSCULAR HGB CONC 32 g/dL (33-37); MEAN CORPUSCULAR VOLUME 92.6 fL (80-94); PLATELET COUNT (AUTO) 477 K/uL (140-450); RED BLOOD CELL COUNT(AUTO) 3.33 MIL/uL (4.20-5.40); RED CELL DISTRIBUTION WIDTH 14.2 % (11.6-13.7)
[2019-10-08] MEDS: PIPERACILLIN/TAZOBACTAM 2.25 GM in DEXTROSE 5% 50 ML IV SCH ×3 (05:26→17:56)
--- NOTE | 2019-10-08 05:30 | NUR ---
MORNING CARE DONE.FLACC 0.REPOSITIONED
[2019-10-08 05:42] LABS: ANION GAP 20.6 (8-16); CARBON DIOXIDE 23.2 mmol/L (21-32); POTASSIUM 4.8 mmol/L (3.5-5.1)
[2019-10-08 05:51] LABS: CREATININE 4.3 mg/dL (0.6-1.3)
[2019-10-08 06:59] LABS: LYMPHOCYTES % (MANUAL) 3 % (20-46); MONOCYTES % (MANUAL) 7 % (5-12)
--- NOTE | 2019-10-08 07:15 | NUR ---
REPORT GIVEN TO VIKASH EARL FOR CONTINUITY OF CARE
--- NOTE | 2019-10-08 07:27 | NUR ---
RECEIVED INTUBATED PT WITH A 7.5 ETT SECURED @21 TEETH/GUM ON VENT. SETTINGS A/C VC 25, VT 350, PEEP 5 AND FIO2 35%. PT SEDATED AT THIS TIME NOT IN ANY DISTRESS. ETT IS SECURE WITH A PATENT AIRWAY. VENT IS PLUGGED INTO A RED OUTLET WITH ALARMS ON AND FUNCTIONING. WILL CONTINUE TO MONITOR.
--- NOTE | 2019-10-08 08:24 | NUR ---
PT HAD BM, CLEANED AND LINEN CHANGED. PERALTA CARE GIVEN. LEFT FEMORAL CENTRAL DRESSING CHANGE DONE. VAP ORAL CARE GIVEN. FIO2 LOWERED TO 25% FROM 35% BY 5% AT A TIME. PT O2 SAT REMAINS AT 98%. OGT PLACEMENT CHECK AND RESIDUAL CHECK DONE WITH 20ML RESIDUALS. LUNGS AUSCULTATED, CLEAR DIMINISHED BREATH SOUNDS. PUPILS BRISK REACTIVE 3MM. SAFETY MEASURES IN PLACE. WILL CONTINUE TO MONITOR.
[2019-10-08] MEDS: GABAPENTIN 300 MG CAP PO SCH ×2 (08:28→21:18)
[2019-10-08] MEDS: TACROLIMUS 0.5 MG CAP PO SCH ×2 (08:28→21:41)
[2019-10-08] MEDS: LOSARTAN 50 MG TAB PO SCH (08:28)
[2019-10-08] MEDS: LACTOBACILLUS RHAMNOSUS GG 1 EACH CAP PO SCH (08:28)
[2019-10-08] MEDS: methylPREDNISolone SS 40 MG/ML VIAL IVP SCH ×2 (08:28→21:18)
[2019-10-08] MEDS: DOCUSATE 100 MG/10 ML UDC PO SCH ×2 (08:28→21:18)
[2019-10-08] MEDS: amLODIPine 5 MG TAB PO SCH (08:29)
[2019-10-08] MEDS: LABETALOL 200 MG TAB PO SCH ×3 (08:31→17:56)
[2019-10-08] MEDS: ZINC SULF 220 MG CAP PO SCH (08:31)
[2019-10-08] MEDS: EZETIMIBE 10 MG TAB PO SCH (08:31)
[2019-10-08] MEDS: VIT-B COMP/VIT-C/FOLIC ACID 1 TAB PO SCH (08:31)
[2019-10-08] MEDS: FLUTICASONE NASAL 50 MCG/ACTUATION 16 GM BTL NS SCH (08:31)
[2019-10-08] MEDS: FAMOTIDINE 20 MG TAB PO SCH (08:31)
[2019-10-08] MEDS: ASCORBIC ACID 500 MG/5 ML ORASYR PO SCH (08:31)
[2019-10-08] MEDS: VITAMIN D 400 IU TAB PO SCH (08:33)
[2019-10-08] MEDS: ONDANSETRON 4 MG/5 ML ORASYR PO SCH (08:33)
[2019-10-08] MEDS: LIDOCAINE 5% 1 EA PATCH TP SCH (08:34)
[2019-10-08] MEDS: MYCOPHENOLATE 250 MG CAP PO SCH ×2 (08:34→21:41)
[2019-10-08] MEDS: [UNRECOGNIZED DRUG - MIXTURE] PO SCH (08:40)
--- NOTE | 2019-10-08 08:45 | NUR ---
MEDICATIONS ADMINISTERED PER ORDER. PT TOLERATED WELL, NO DISTRESS NOTED.
--- NOTE | 2019-10-08 09:05 | NUR ---
SEDATION STOPPED AT THIS TIME TO REALIZE CPAP TRIALS AT AROUND 1000AM
[2019-10-08 09:17] LABS: MAGNESIUM 2.4 mg/dL (1.8-2.4); PHOSPHORUS 7.9 mg/dL (2.5-4.9)
--- NOTE | 2019-10-08 09:19 | NUR ---
RECEIVED CALL FROM PHARMACISTS ABOUT PT LIDOCAINE PATCH AND ZOFRAN. CALLED DR BLAIR ABOUT DISCONTINUING MEDICATION, HE VERBALIZED HE WILL DISCONTINUE THOSE 2 MEDICATIONS.
--- NOTE | 2019-10-08 10:16 | NUR ---
PT PLACED ON SBT CPAP 5 PS 10 FIO2 35%. NURSE MADE AWARE.
--- NOTE | 2019-10-08 10:31 | NUR ---
PT HAS BEEN OFF SEDATION FOR ABOUT AN HOUR, CPAP TRIAL STARTED AT 1010. PT TOLERATING WELL. FAMILY WAS ON THE PHONE TALKING TO HER DURING THE PROCESS. WILL CONTINUE TO MONITOR.
--- NOTE | 2019-10-08 11:40 | NUR ---
PT PLACED BACK ON TO A/C VC 25, VT 350, PEEP 5 AND FIO2 35%. TOTAL SBT PT TOLERATED 45 MIN PT HAD CONTINUOS EPISODES OF LOW RR DROPPING BELOW SETTING ALARMS OF 6 RR/MIN. PT STILL SEEMS TO BE SHOWING EFFECTS OF SEDATION WHICH HAS BEEN OFF. WILL ATTEMPT ANOTHER SBT AT A LATER TIME. NURSE MADE AWARE.
--- NOTE | 2019-10-08 12:24 | NUR ---
TEMPERATURE TAKEN AT THIS TIME 99.2. VAP ORAL CARE GIVEN. PT REPOSITIONED. WILL CONTINUE TO MONITOR.
--- NOTE | 2019-10-08 14:44 | NUR ---
PT VITAL SIGNS STABLE, NO DISTRESS NOTED. SAFETY MEASURES IN PLACE, WILL CONTINUE TO MONITOR.
--- NOTE | 2019-10-08 15:32 | NUR ---
NEW NEPRO TUBE FEEDING AND WATER SET UP FOR PT, RESIDUAL CHECK DONE 0ML. TEMP 99.2 AT THIS TIME. PT REPOSITIONED. ORAL VAP CARE GIVEN. WILL CONTINUE TO MONITOR.
--- NOTE | 2019-10-08 15:42 | NUR ---
PT PLACED ON SBT CPAP 5 PS 10 FIO2 28% PT MORE AWAKE AT THIS TIME. NURSE AWARE. VENT ALARMS SET AND FUNCTIONING. WILL CONTINUE TO MONITOR.
--- NOTE | 2019-10-08 16:42 | NUR ---
PT TOLERATED SBT FOR 1 HOUR. NURSE AWARE OF PT STATUS. WILL CONTINUE TO MONITOR.
--- NOTE | 2019-10-08 17:38 | NUR ---
LABETOLOL AND ZOSYN ADMINISTERED PER ORDER. OGT RESIDUAL CHECK 50ML. CHEST TUBE DRAINAGE 15ML FOR SHIFT 80ML TOTAL. URINE OUTPUT 750ML.
--- NOTE | 2019-10-08 17:46 | NUR ---
PT REMAINS ON DOCUMENTED VENT SETTINGS. PT NOT IN ANY DISTRESS AT THIS TIME. VENT ALARMS ON AND FUNCTIONING.
--- NOTE | 2019-10-08 19:05 | NUR ---
RECEIVED REPORT FROM DAY SHIFT RN, PT ON VERSED 5 MCG/KG/MIN, MORPHINE 4 MG/HR, PT CHEST TUBE DRAINING RECEIVED AT 80 ML FROM PREVIOUS SHIFT, PT RIJ, LEFT FEMORAL MARY CATH WITH PIG TAIL AND LEFT WRIST 22G PT, ETT TO VENT AC/VC FIO2 28 VT 350 RR 25 PEEP 5, PERALTA CATHETER IN PLACE DRAINING CLEAR YELLOW URINE, LUNG SOUNDS CLEAR, S1 AND S2 HEART SOUNDS HEARD, PULSES PALPABLE UPPER AND LOWER EXTREMITIES, PUPIL 3MM PERRL, VITALS STABLE, SAFETY PROTOCOLS IN PLACE WILL CONTINUE TO MONITOR PT Addendum: 10/09/19 at 0127 by Jason Martinez RN VERSED 5ML/HR
--- NOTE | 2019-10-08 19:20 | NUR ---
RECEIVED REPORT FROM AM SHIFT. PATIENT SEEN AND ASSESSED. PATIENT IS INTUBATED WITH ETT SIZE 7.5 AND SECURED WITH ANCHOR-FAST AT 21CM. AUSCULTATION REVEAL CLEAR (UL) AND DIMINISHED (LL) BREATH SOUNDS. PATIENT ON VENT SETTINGS AC/VC 25, 350, +5, 28% WITH SPO2 OF 97%. VENT PLUGGED IN RED OUTLET, HOB > 30 DEGREES, BVM AT BEDSIDE, AND ALARMS SET AND AUDIBLE. PATIENT IS IN NO APPARENT RESPIRATORY DISTRESS AT THIS TIME. HHN TX GIVEN ORDERED VIA INLINE AND PATIENT TOLERATED WELL WITH NO ADVERSE REACTION. SUCTIONED SMALL AMOUNT OF YELLOW THICK SECRETIONS FROM ETT. AIRWAY IS PATIENT. WILL CONTINUE TO MONITOR PATIENT.
[2019-10-08] MEDS: CONJUGATED ESTROGENS VAG CREAM 42 GM TUBE VG SCH (21:46)
--- NOTE | 2019-10-08 23:30 | NUR ---
PT HAD BM MODERATE AMOUNT BROWN SOFT SEMI FORMED, CHANGED CENTRAL LINE DRESSING ON LEFT FEMORAL MARY DUE TO IT BECOMING SOILED, VITALS STABLE NO SIGNS OF DISTRESS OBSERVED WILL CONTINUE TO MONITOR PT
[2019-10-09] VITALS (89 sets, daily range): BP systolic 131–185; BP diastolic 70–106
[2019-10-09] MEDS: PIPERACILLIN/TAZOBACTAM 2.25 GM in DEXTROSE 5% 50 ML IV SCH ×5 (00:14→23:48)
[2019-10-09] MEDS: ALBUTEROL 0.083% 2.5 MG/3 ML NEBU INH SCH ×4 (01:28→19:37)
--- NOTE | 2019-10-09 02:15 | NUR ---
PT CHEST TUBE NOT ON SUCTION INFORMED DR. ZAVALETA, WAS INFORMED WAITING ON X-RAY TO DETERMINE IF SUCTION WAS NEEDED STILL. WILL CONTINUE TO MONITOR PT
--- NOTE | 2019-10-09 02:37 | NUR ---
RECEIVED CHEST X-RAY RESULTS INFORMED DR. ZAVALETA OF RESULTS NO PNEUMOTHORAX; RECEIVED TELEPHONE VERBAL ORDERS TO HOLD SUCTION AT THIS TIME
[2019-10-09 06:10] LABS: BASOPHILS # (AUTO) 0.1 K/uL (0.00-0.22); BASOPHILS % (AUTO) 0.6 % (0.0-2.0); EOSINOPHILS # (AUTO) 0.2 K/uL (0-0.4); EOSINOPHILS % (AUTO) 0.9 % (0.0-4.0); HEMATOCRIT 31.5 % (36-48); HEMOGLOBIN 10.2 g/dL (12.0-16.0); LYMPHOCYTES # (AUTO) 0.6 K/uL (2.5-16.5); LYMPHOCYTES % (AUTO) 2.7 % (20.5-51.1); MEAN CORPUSCULAR HEMOGLOBIN 30 pg (27-31); MEAN CORPUSCULAR HGB CONC 32 g/dL (33-37); MEAN CORPUSCULAR VOLUME 93.9 fL (80-94); MONOCYTES # (AUTO) 0.4 K/uL (0.8-1.0); MONOCYTES % (AUTO) 1.9 % (1.7-9.3); NEUTROPHILS # (AUTO) 21.4 K/uL (1.8-7.7); NEUTROPHILS % (AUTO) 93.9 % (42.2-75.2); PLATELET COUNT (AUTO) 453 K/uL (140-450); RED BLOOD CELL COUNT(AUTO) 3.35 MIL/uL (4.20-5.40); RED CELL DISTRIBUTION WIDTH 14.3 % (11.6-13.7); WHITE BLOOD COUNT (AUTO) 22.8 K/uL (4.8-10.8)
[2019-10-09 06:14] LABS: ANION GAP 22.9 (8-16); CARBON DIOXIDE 22.2 mmol/L (21-32); POTASSIUM 5.1 mmol/L (3.5-5.1)
[2019-10-09 06:16] LABS: MAGNESIUM 2.5 mg/dL (1.8-2.4); PHOSPHORUS 8.1 mg/dL (2.5-4.9)
--- NOTE | 2019-10-09 06:18 | NUR ---
PATIENT STILL REMAINS ON SAME VENT SETTINGS. AIRWAY IS PATENT. ETT IS SECURED AND INTACT. PATIENT IN NO DISTRESS AT THIS TIME. WILL CONTINUE TO MONITOR.
[2019-10-09 06:32] LABS: CREATININE 4.7 mg/dL (0.6-1.3)
--- NOTE | 2019-10-09 07:00 | NUR ---
RECEIVED INTUBATED PT WITH A 7.5 ETT SECURED @21 TEETH/GUM ON VENT. SETTINGS A/C VC 20, VT 350, PEEP 5 AND FIO2 28%. PT SEDATED AT THIS TIME NOT IN ANY DISTRESS. ETT IS SECURE WITH A PATENT AIRWAY. VENT IS PLUGGED INTO A RED OUTLET WITH ALARMS ON AND FUNCTIONING. WILL CONTINUE TO MONITOR.
--- NOTE | 2019-10-09 07:15 | NUR ---
RECEIVED REPORT FROM NIGHT NURSE. PT IN BED, SEDATED AT RASS -3, NO DISTRESS NOTED. VENT SETTINGS AC/VC MODE FIO2 28%, VT350, R20, PEEP 5 O2 SAT 100%. MORPHINE 4MG AND VERSED 5MG FOR SEDATION INFUSING PER ORDER. R IJ, LEFT FEMORAL MARY CATH AND R WRIST VENOUS ACCESS IN PLACE, PATENT AND ASYMPTOMATIC. RIGHT UPPER MID-AXILLARY CHEST TUBE IN PLACE DRAINING WITHOUT SUCTION. PERALTA IN PLACE, URINE YELLOW AND CLEAR. OGT IN PLACE RECEIVING TUBE FEEDING NEPRO AT 40ML. STANDARD PRECAUTIONS IN PLACE. WILL CONTINUE TO MONITOR.
[2019-10-09] MEDS: VITAMIN D 400 IU TAB PO SCH (08:54)
[2019-10-09] MEDS: MYCOPHENOLATE 250 MG CAP PO SCH (08:54)
[2019-10-09] MEDS: DOCUSATE 100 MG/10 ML UDC PO SCH ×2 (08:54→20:10)
[2019-10-09] MEDS: LACTOBACILLUS RHAMNOSUS GG 1 EACH CAP PO SCH (08:54)
[2019-10-09] MEDS: ZINC SULF 220 MG CAP PO SCH (08:55)
[2019-10-09] MEDS: amLODIPine 5 MG TAB PO SCH (08:55)
[2019-10-09] MEDS: ASCORBIC ACID 500 MG/5 ML ORASYR PO SCH (08:55)
[2019-10-09] MEDS: methylPREDNISolone SS 40 MG/ML VIAL IVP SCH ×2 (08:56→20:10)
[2019-10-09] MEDS: FAMOTIDINE 20 MG TAB PO SCH (08:56)
[2019-10-09] MEDS: VIT-B COMP/VIT-C/FOLIC ACID 1 TAB PO SCH (08:56)
[2019-10-09] MEDS: LOSARTAN 50 MG TAB PO SCH (08:56)
[2019-10-09] MEDS: GABAPENTIN 300 MG CAP PO SCH ×2 (08:56→20:10)
[2019-10-09] MEDS: EZETIMIBE 10 MG TAB PO SCH (08:56)
[2019-10-09] MEDS: [UNRECOGNIZED DRUG - MIXTURE] PO SCH (08:57)
[2019-10-09] MEDS: LABETALOL 200 MG TAB PO SCH ×3 (08:57→17:02)
[2019-10-09] MEDS: FLUTICASONE NASAL 50 MCG/ACTUATION 16 GM BTL NS SCH (08:58)
[2019-10-09] MEDS: TACROLIMUS 0.5 MG CAP PO SCH ×2 (09:00→20:11)
--- NOTE | 2019-10-09 09:39 | NUR ---
MEDICATIONS ADMINISTERED PER ORDER. PT TOLERATED WELL. RESIDUALS 200ML, WILL HOLD FEEDING FOR 1 HOUR. PT CLEANED AND REPOSITIONED, PERALTA CARE GIVEN. VAP ORAL CARE GIVEN. SACRAL DRESSING CHANGED, Z GUARD APPLIED. SAFETY MEASURES IN PLACE. WILL CONTINUE TO MONITOR.
--- NOTE | 2019-10-09 11:45 | NUR ---
WOUND CARE EVALUATION NOTE: SKIN ASSESSMENT DONE WITH THIS 39 Y/O FEMALE PT ADMITTED FROM HOME TO [facility] WITH MEDICAL HX INCLUDES SEVERE SEPSIS AND ACUTE HYPOXEMIC RESPIRATORY FAILURE DUE TO ASPIRATION PNA. PT IS INTUBATED AND SEDATED. SKIN IS WARM AND DRY, BLE NO HAIR GROWTH, +1 EDEMA TO BILATERAL LOWER LEGS. BILATERAL DORSAL PEDAL PULSES PRESENT AND NORMAL. INCONTINENT OF BOWEL X1 DURING ASSESSMENT. PLAN OF CARE DISCUSSED WITH PRIMARY RN. COMORBIDITIES RELATED TO DELAY WOUND HEALING AND FURTHER SKIN BREAKS WHICH MAY LEAD TO UNAVOIDABLE PRESSURE ULCER DEVELOP ARE: INFECTION, LOW Hgb/Hct, KIDNEY FAILURE ON HD, LOW ALBUMIN LEVEL AND HOB ELEVATED THE MAJORITY OF TIMES DUE TO MEDICAL REASONS. INTEGUMENTARY -RIGHT HIP SURGICAL WOUND NEWLY HEALING SCAR TISSUE, NO S/S WOUND DEHISCENCE -RIGHT BUTTOCK SDTI 2 SMALL AREAS: 0.5X0.7CM AND 1.2X0.2CM, SKIN INTACT 100% MAROON COLOR -RIGHT CHEST TUBE, SECURED, DRESSING DRY CLEAN AND INTACT RECOMMENDATIONS: -APPLY HYDRAGUARD TO RIGHT BUTTOCK AND COVER WITH FOAM DRESSING DAILY, OFFLOADING AND WEIGHT SHIFTING Q2H -RIGHT HIP SURGICAL WOUND, APPLY ADAPTIC DRESSING AND COVER WITH ISLAND DRESSING CHANGE Q5 DAYS AND PRN IF SOILING -TURN AND REPOSITION PATIENT Q 2H -ASSESS AND MONITOR SKIN CONDITION DURING POSITION CHANGE -OFFLOAD BILATERAL HEELS BY PLACING PILLOWS UNDER CALVES AT ALL TIMES, UNLESS OTHERWISE CONTRAINDICATED -PRESSURE REDISTRIBUTION BY PLACING PILLOWS AND OFFLOADING SACRALCOCCYX -KEEP SKIN CLEAN AND DRY AT ALL TIMES. ALL ABOVE RECOMMENDATIONS DISCUSSED WITH PRIMARY RN PLEASE CONTACT WOUND CARE NURSE FOR ANY QUESTION AND CHANGE OF WOUND CONDITION.
--- NOTE | 2019-10-09 11:52 | NUR ---
PT REPOSITIONED AT THIS TIME. PERALTA CARE DONE. PT HAD BOWEL MOVEMENT, CLEANED AND LINENS CHANGED. ORAL CARE GIVEN. WILL CONTINUE TO MONITOR.
--- NOTE | 2019-10-09 13:30 | NUR ---
SEDATION TURNED OFF AT THIS TIME. WILL DO CPAP TRIALS IN APROX 1 HOUR.
[2019-10-09] MEDS ORDERED: GAUZE TP PRN (14:20)
--- NOTE | 2019-10-09 14:33 | NUR ---
PT AWAKE AT THIS TIME PLACED ON SBT 1 HOUR CPAP 5 PS 10 FIO2 28%. NURSE MADE AWARE. WILL CONTINUE TO MONITOR.
--- NOTE | 2019-10-09 15:12 | NUR ---
PER DR OWENS PT DOES NOT NEED TUNNELED CATH. INSTRUCTED TO GIVE PT HEMODIALYSIS WITH EXISTING MARY CATH DESPITE HEMODIALYSIS NURSE SAYING IT DOES NOT WORK. PT TO RECEIVE HEMODIALYSIS TONIGHT AND SEE IF MARY WORKS.
--- NOTE | 2019-10-09 15:32 | NUR ---
MEDICATIONS ADMINISTERED PER ORDER. PT TOLERATED WELL. NO SIGNS OF DISTRESS NOTED. WILL CONTINUE TO MONITOR.
--- NOTE | 2019-10-09 15:45 | NUR ---
PT ONLY LASTED A TOTAL OF AROUND 20 MINUTES ON SBT. PT EXHIBITED MULTIPLE EPISODES OF LOW RR <6 AND APNEA. WILL ALLOW SEDATION TO WEAR OFF LONGER AND WILL TRY AT A LATER TIME FOR SBT. NURSE MADE AWARE. WILL CONTINUE TO MONITOR.
--- NOTE | 2019-10-09 17:12 | NUR ---
PT REPOSITIONED AT THIS TIME, ORAL CARE GIVEN. RESIDUAL CHECK DONE 10ML. WILL CONTINUE TO MONITOR.
--- NOTE | 2019-10-09 17:30 | NUR ---
PT PLACED ON SBT CPAP 5 PS 10 FIO2 28%. NURSE AWARE.
--- NOTE | 2019-10-09 17:40 | NUR ---
PT ALARMING VENT WITH LOW RR BELOW 6. PT PLACED BACK ON A/C VC 20, VT350, PEEP 5 AND FIO2 28%. PT TOLERATING SETTINGS WELL. ETT IS SECURE WITH A PATENT AIRWAY. VENT ALARMS ON AND FUNCTIONING.
--- NOTE | 2019-10-09 19:15 | NUR ---
RECEIVE PT FROM AMRITA AVELAR RN. PT RASS -3, PER ORDERS. NO SEDATION INFUSING AT THIS TIME D/T ATTEMPTS TO WEAN FROM VENT THIS AM, AND AGAIN TOMORROW. PT RESPONDS TO LIGHT PAIN @ THIS TIME. PUPILS 3 MM AND PERRL. ETT TO VENT ON AC VC MODE WITH SETTING FOLLOWS: FI02 @ 28%, TV 350, RATE 20, PEEP 5. LUNGS DIMINISHED THROUGHOUT TO INSPIRATORY AND EXPIRATORY. + S1/S2 NOTED UPON AUSCULTATION. NSR ON MONITOR WITH HR @ 86 BPM. RT IJ CENTRAL LINE IN PLACE, PATENT. RT WRIST PERIPHERAL IV, 22G, PATENT. BOWEL SOUNDS ACTIVE X4. ABD SOFT, NON-DISTENDED. PERALTA IN PLACE DRAINING CLEAR, YELLOW URINE TO GRAVITY. DTI TO RT BUTTOCKS NOTED WITH CLEAN, DRY, DRESSING IN PLACE. CLOSED SURGICAL LACERATION TO RT HIP NOTED. WILL FOLLOW UP WITH R/T SEDATION ORDER. SAFETY PRECAUTIONS IN PLACE. BED LOW AND LOCKED. ALL ALARMS ON, AND FUNCTIONING PROPERLY. WILL CONT TO MONITOR.
--- NOTE | 2019-10-09 19:15 | NUR ---
REPORT GIVEN TO NIGHT NURSE FOR CONTINUITY OF CARE.
--- NOTE | 2019-10-09 19:50 | NUR ---
RECEIVED PATIENT ETT TO MECHANICAL VENTILATOR AT DOCUMENTED SETTINGS. VENT CHECK DONE. VENT ALARMS ON AND AUDIBLE. VENT PLUGGED INTO RED OUTLET WITH WHEELS LOCKED. BVM AT [facility]. AIRWAY SECURE AND PATENT. SUCTIONED SCANT AMOUNT OF THICK, BROWN SECRETIONS. SCHEDULED BREATHING TREATMENT ADMINISTERED. TOLERATED TX WELL WITHOUT ADVERSE SIDE EFFECTS. ORAL VAP CARE DONE. NO ACUTE RESPIRATORY DISTRESS NOTED AT THIS TIME. WILL CONTINUE TO MONITOR.
[2019-10-09] MEDS ORDERED: TACROLIMUS 0.5 MG CAP ONE (20:04)
[2019-10-09] MEDS ORDERED: VANCOMYCIN 500 MG in DEXTROSE 5% 100 ML IV SCH (21:00)
[2019-10-09] MEDS: CONJUGATED ESTROGENS VAG CREAM 42 GM TUBE VG SCH (21:00)
--- NOTE | 2019-10-09 21:40 | NUR ---
DIALYSIS STARTED AT THIS TIME BY ZOE ORTIZ. ZOE REMAINS AT BEDSIDE. WILL CONT TO MONITOR FOR CHANGES.
[2019-10-10] VITALS (79 sets, daily range): BP systolic 92–194; BP diastolic 46–122
--- NOTE | 2019-10-10 00:16 | NUR ---
NOTIFIED MD YIN OF PT HR BETWEEN 130-160/ AND INTERMITTENT AFIB RHYTHM WHILE ON DIALYSIS. NO NEW ORDERS AT THIS TIME. WILL CONT TO MONITOR.
[2019-10-10] MEDS: ALBUTEROL 0.083% 2.5 MG/3 ML NEBU INH SCH ×4 (01:00→19:00)
[2019-10-10] MEDS ORDERED: DILTIAZEM 25 MG/5 ML VIAL IVP SCH ×3 (01:10→03:25)
--- NOTE | 2019-10-10 01:21 | NUR ---
MD YIN IN UNIT TO ASSESS PT AT THIS TIME. Addendum: 10/10/19 at 0122 by Nadya Christine RN AWARE OF VITALSandrine
[2019-10-10] MEDS: MORPHINE SULFATE 2 MG/ML SYR IVP PRN (01:30)
--- NOTE | 2019-10-10 01:35 | NUR ---
NEW ORDER FOR CARDIZEM. ADMINISTERED ORDERED. WILL CONT TO MONITOR.
--- NOTE | 2019-10-10 01:55 | NUR ---
NOTIFIED OF ELEVATED HR S/P CARDIZEM ADMINISTRATION. AWAITING NEW ORDERS.
--- NOTE | 2019-10-10 03:18 | NUR ---
NOTIFIED DR YIN OF HR 148 BPM. AWAITING NEW ORDERS AT THIS TIME.
--- NOTE | 2019-10-10 04:57 | NUR ---
ADMINISTERED CARDIZEM ORDERED. MADE MD AWARE HR REMAINS IN THE 150S. NO NEW ORDERS AT THIS TIME.
[2019-10-10] MEDS: PIPERACILLIN/TAZOBACTAM 2.25 GM in DEXTROSE 5% 50 ML IV SCH ×3 (05:29→18:00)
[2019-10-10 06:08] LABS: HEMOGLOBIN 10.7 g/dL (12.0-16.0); MEAN CORPUSCULAR HEMOGLOBIN 30 pg (27-31); MEAN CORPUSCULAR HGB CONC 32 g/dL (33-37); MEAN CORPUSCULAR VOLUME 92.9 fL (80-94); PLATELET COUNT (AUTO) 439 K/uL (140-450); RED BLOOD CELL COUNT(AUTO) 3.55 MIL/uL (4.20-5.40); RED CELL DISTRIBUTION WIDTH 14.3 % (11.6-13.7)
[2019-10-10 06:15] LABS: ANION GAP 16.4 (8-16); CREATININE 2.9 mg/dL (0.6-1.3); POTASSIUM 3.4 mmol/L (3.5-5.1)
[2019-10-10] MEDS ORDERED: LABETALOL 100 MG/20 ML VIAL IV SCH (06:15)
--- NOTE | 2019-10-10 06:25 | NUR ---
LABETALOL 20MG ADMINISTERED ORDERED. WILL FOLLOW-UP.
[2019-10-10 06:29] LABS: MAGNESIUM 1.8 mg/dL (1.8-2.4); PHOSPHORUS 5.1 mg/dL (2.5-4.9)
--- NOTE | 2019-10-10 07:00 | NUR ---
UNABLE TO ADMIN MDI TX DUE TO HIGH HR.
[2019-10-10 07:05] LABS: WHITE BLOOD COUNT (AUTO) 29.9 K/uL (4.8-10.8)
[2019-10-10 07:06] LABS: LYMPHOCYTES % (MANUAL) 5 % (20-46); MONOCYTES % (MANUAL) 3 % (5-12)
--- NOTE | 2019-10-10 07:10 | NUR ---
RECEIVED PT FROM AIRFIELD ENGINEER OFFICER, ETT IS SECURED AND INTACT. PT IS ON DOCUMENTED SETTINGS. DID NOT ADMINISTER MDI TX DUE TO HIGH HR 144. SX: SMALL BLOOD TINGED SECRETIONS. PT SHOWS NO SIGN OF DISTRESS AT THIS TIME. VENT IS PLUGGED INTO RED OUTLET, ALARMS ARE ON AND FUNCTIONING, AMBU BAG AT BEDSIDE. WILL CONTINUE TO MONITOR.
--- NOTE | 2019-10-10 07:20 | NUR ---
RECEIVED REPORT FROM PROGRAMMER RN. PT OFF SEDATION, AWAKE, EYE OPENING SPONTANEOUSLY. ST ON MONITOR. HR 147. VENT SETTINGS AC/VC, FIO2 28%, VT350, R20, PEEP 5, O2 SAT 98%. LUNG SOUNDS CLEAR, BOWELS SOUNDS ACTIVE. R IJ MARY WITH PIGTAIL, LEFT FEMORAL MARY CATH WITH PIGTAIL, BOTH PATENT AND ASYMPTOMATIC, POSITIVE BLOOD RETURN. AND R WRIST VENOUS ACCESS IN PLACE, PATENT AND ASYMPTOMATIC. RIGHT UPPER MID-AXILLARY CHEST TUBE IN PLACE DRAINING WITHOUT SUCTION. PERALTA CATH IN PLACE DRAINING CLEAR YELLOW URINE. OGT IN PLACE, PLACEMENT CONFIRMED WITH AUSCULTATION. TUBE FEEDING NEPRO AT 40ML, WATER FLUSH 50ML Q6H. BED IN LOWEST POSITION. FALL PRECAUTIONS IN PLACE.
[2019-10-10] MEDS ORDERED: PROPOFOL 1000 MG/100 ML PREMIX 100 ML IV PRN (07:50)
--- NOTE | 2019-10-10 07:55 | NUR ---
DR THERESA LOPEZ SEEN PT, PT HR 151, ORDERED ADENOSINE 6MG IVP X1.
[2019-10-10] MEDS ORDERED: ADENOSINE 6 MG/2 ML VIAL IVP ONE (07:56)
[2019-10-10] MEDS ORDERED: POTASSIUM CHLORIDE 20% 40 MEQ/15 ML UDC NG SCH (08:00)
[2019-10-10] MEDS ORDERED: ADENOSINE 6 MG/2 ML VIAL IVP SCH (08:00)
--- NOTE | 2019-10-10 08:04 | NUR ---
ETT 23CM @ LIP. RETRACTED ETT TO 21CM @LIP. ETT IS SECURED, NURSE AT BEDSIDE. PT RECEIVING GOOD VOLUMES AND RESTING COMFORTABLE.
--- NOTE | 2019-10-10 08:05 | NUR ---
PT IS RESTLESS, TRYING TO PULL ETT. HR 148, STARTED PROPOFOL DRIP, AT 5MCG/KG/HR. DRY WEIGHT 72.5KG.
[2019-10-10] MEDS: DOCUSATE 100 MG/10 ML UDC PO SCH ×2 (08:28→20:15)
[2019-10-10] MEDS: EZETIMIBE 10 MG TAB PO SCH (08:28)
[2019-10-10] MEDS: ASCORBIC ACID 500 MG/5 ML ORASYR PO SCH (08:28)
[2019-10-10] MEDS: methylPREDNISolone SS 40 MG/ML VIAL IVP SCH ×2 (08:29→20:15)
[2019-10-10] MEDS: LACTOBACILLUS RHAMNOSUS GG 1 EACH CAP PO SCH (08:29)
[2019-10-10] MEDS: FAMOTIDINE 20 MG TAB PO SCH (08:29)
[2019-10-10] MEDS: TACROLIMUS 0.5 MG CAP PO SCH ×2 (08:29→20:15)
[2019-10-10] MEDS: amLODIPine 5 MG TAB PO SCH (08:30)
[2019-10-10] MEDS: GABAPENTIN 300 MG CAP PO SCH ×2 (08:30→20:15)
[2019-10-10] MEDS: LOSARTAN 50 MG TAB PO SCH (08:30)
[2019-10-10] MEDS: LABETALOL 200 MG TAB PO SCH ×3 (08:30→17:00)
[2019-10-10] MEDS: VIT-B COMP/VIT-C/FOLIC ACID 1 TAB PO SCH (08:30)
[2019-10-10] MEDS: ZINC SULF 220 MG CAP PO SCH (08:30)
[2019-10-10] MEDS: FLUTICASONE NASAL 50 MCG/ACTUATION 16 GM BTL NS SCH (08:31)
[2019-10-10] MEDS: VITAMIN D 400 IU TAB PO SCH (08:34)
[2019-10-10] MEDS: [UNRECOGNIZED DRUG - MIXTURE] PO SCH (08:35)
--- NOTE | 2019-10-10 08:45 | NUR ---
DR AGUILAR SEEN PT, NS 500ML BOLUS ORDERS RECEIVED. DR AGUILAR WANTS PROPOFOL OFF AND START CPAP TRIAL.
--- NOTE | 2019-10-10 09:00 | NUR ---
INITIATED SBT MULTIPLE TIMES. DUE TO PATIENT BEING APNEIC, PT IS BACK ON PREVIOUS SETTINGS. WILL ATTEMPT ON NEXT VENT CHECK.
[2019-10-10] MEDS ORDERED: NACL 0.9% 500 ML IV SCH (09:10)
--- NOTE | 2019-10-10 10:22 | NUR ---
REPORTED EKG AND TROP 0.[address] BARKER CAME AND CHECKED EKG STRIP AND THE PT.
[2019-10-10] MEDS ORDERED: DEXMEDETOMIDINE HCL 200 MCG in NACL 0.9% 48 ML IV PRN (10:30)
--- NOTE | 2019-10-10 10:35 | NUR ---
PT VOICED HER NEEDS, BED BRUNSON PROVIDED. PT HAD BMX1, LOOSE BROWN STOOL, MODERATE AMOUNT.
--- NOTE | 2019-10-10 10:50 | NUR ---
PT WAS CLEANED, DRESSING CHANGED. PT TOLERATED WELL. Addendum: 10/10/19 at 1411 by Burke Castro RN Z GUARD APPLIED TO BUTTOCK.
[2019-10-10] MEDS: DEXMEDETOMIDINE HCL 200 MCG in NACL 0.9% 48 ML IV PRN ×2 (11:15→19:00)
--- NOTE | 2019-10-10 13:00 | NUR ---
DID NOT ADMINISTER MDI TX DUE TO HIGH HR. (143)
[2019-10-10] MEDS: FOAM DRESSING TP SCH (13:26)
--- NOTE | 2019-10-10 14:35 | NUR ---
10/10/19 RD FOLLOW UP COMPLETED PLEASE REFER TO NUTRITION ASSESSMENT UNDER CARE ACTIVITY FOR ESTIMATED NUTRITIONAL NEEDS. 1. CONTINUE NEPRO 1.8 @ 40 ML/HR X 24 HR OR TOTAL OF 960 ML/DAY. START AT10 ML/HR AND INCREASE BY 10ML/HR Q6H -THIS WILL PROVIDE 960 ML OF VOLUME, 1728 CALORIES AND 78 GM OF PROTEIN, WHICH MEETS 100% OF ESTIMATED NEEDS 2. CONTINUE FREE WATER FLUSH OF100 ML Q4H PER MD 3. CONTINUE NEPHRO-RADHA DAILY 4. IF/WHEN PT IS EXTUBATED CONSIDER ORDERING SWALLOW EVALUATION FOR PO DIET 5. RD TO FOLLOW-UP 2-3 DAYS, HIGH RISK ÓSCAR JAIME RD
--- NOTE | 2019-10-10 15:05 | NUR ---
DR COSTA (TESTING ANALYST) CAME AND EVALUATED PT. WILL START BRENDAN AMARAL WITH MD ORDER.
[2019-10-10] MEDS: DILTIAZEM 125 MG in DEXTROSE 5% 100 ML IV SCH (15:21)
[2019-10-10] MEDS ORDERED: HEPARIN PER PHARMACY MC PRN (15:55)
[2019-10-10] MEDS ORDERED: hePARIN / DEXT 5% PREMIX 250 ML IV SCH ×2 (15:55→17:00)
[2019-10-10] MEDS ORDERED: hePARIN / DEXT 5% PREMIX 250 ML IV ONE (15:56)
--- NOTE | 2019-10-10 16:53 | NUR ---
PT REMAINS ON DOCUMENTED SETTINGS. VENT CHECK DONE, MATHEWS AND HME CHANGED. ETT IS SECURED AND INTACT. PT SHOWS NO SIGN OF DISTRESS AT THIS TIME. VENT IS PLUGGED INTO RED OUTLET, ALARMS ARE ON AND FUNCTIONING, AMBU BAG AT BEDSIDE.
--- NOTE | 2019-10-10 17:30 | NUR ---
SPOKE WITH RESIDENT DR BARKER OVER THE PHONE, MADE DR BARKER AWARE THAT STOPPED DILTIAZEM BECAUSE SBP WENT DOWN TO THE 90S, HR HAS BEEN IN 140S. ALREADY STARTED HEPARIN DRIP. WILL HOLD LABETALOL DUE TO SBP <100. DR BARKER AGREED. ASKED IF CARDIOVERSION IS NEEDED RIGHT NOW. DR BARKER SAID JUST RESTART THE DILTIAZEM WHEN SBP >100 AND MONITOR THE HR.
--- NOTE | 2019-10-10 18:15 | NUR ---
SPOKE WITH RESIDENT BRITTNY ARGUETA TO RESUME DILTIAZEM AT INITIAL RATE WHEN SBP >100. RESUMED DILTIAZEM AT 10ML/HR ON THE RIGHT IJ, PRECEDEX RUNNING AT 0.2MCG/KG/HR, IVF AND IVPB RUNNING AT THE RIGHT WRIST. HEPARIN RUNNING AT 7ML/HR AT LEFT FEMORAL.
--- NOTE | 2019-10-10 19:15 | NUR ---
RECEIVED REPORT FROM DAY SHIFT RN PT DRY WEIGHT 50 KG RASS -2 ON PRECEDEX 0.2 MC/KG/MIN HEPARIN 700U/HR, CARDIZEM 10MG/HR, PT HAS LEFT FEMORAL MARY RIGHT AXILARRY CHEST TUBE, RIGHT WRIST PERIPHERAL IV, RIJ, PERALTA CATHER IN PLACE DRAINING CLEAR YELLOW URINE, OGT TO FEEDING NEPRO 45ML/HR WITH WATER FLUSH 50ML Q6H FLUSHED AND AUSCULTATED AFTER RESIDUAL CHECK WITH 10 RESIDUALS OBSERVED, LUNG SOUNDS DIMINISHED S1 AND S2 HEART SOUNDS HEARD, PULSES PALPABLE UPPER AND LOWER EXTREMITIES, HR ELEVATED OTHER VITALS WITHIN NORMAL LIMITS WITH SAFETY PROTOCOLS IN PLACE WILL CONTINUE TO MONITOR PT
--- NOTE | 2019-10-10 19:44 | NUR ---
RECEIVED REPORT FROM AM SHIFT. PATIENT SEEN AND ASSESSED. PATIENT IS INTUBATED WITH ETT SIZE 7.5 AND SECURED WITH ANCHOR-FAST AT 21CM. AUSCULTATION REVEAL RALES BREATH SOUNDS. PATIENT ON VENT SETTINGS AC/VC 20, 350, +5, 28% WITH SPO2 OF 100%. VENT PLUGGED IN RED OUTLET, HOB > 30 DEGREES, BVM AT BEDSIDE, AND ALARMS SET AND AUDIBLE. PATIENT IS IN NO APPARENT RESPIRATORY DISTRESS AT THIS TIME. HHN TX NOT GIVEN ORDERED DUE TO INCREASED IN HEART RATE (146). SUCTIONED SCANT AMOUNT OF YELLOW THICK SECRETIONS FROM ETT. AIRWAY IS PATIENT. WILL CONTINUE TO MONITOR PATIENT.
[2019-10-10] MEDS: CONJUGATED ESTROGENS VAG CREAM 42 GM TUBE VG SCH (20:17)
--- NOTE | 2019-10-10 21:15 | NUR ---
PT RASS 0 AND TRYING TO TALK AFTER ASKING PT YES OR NO QUESTIONS PROVIDED PT WITH BEDPAN, PT CONTINUE TO TRY AND TALK AND ABLE TO MAKE OUT PT ASKING WHAT IS GOING ON, EXPLAINED PT SITUATION. ASKED PT TO MAKE SURE SHE LEAVES ETT ALONE AND PT NODDED HEAD IN UNDERSTANDING TO NOT DISTURB IT. INCREASED PT PRECEDEX TO PUT RASS SCORE BACK TO -1
[2019-10-11] VITALS (53 sets, daily range): BP systolic 101–174; BP diastolic 53–99
[2019-10-11] MEDS: PIPERACILLIN/TAZOBACTAM 2.25 GM in DEXTROSE 5% 50 ML IV SCH ×4 (00:17→18:33)
[2019-10-11] MEDS: DILTIAZEM 125 MG in DEXTROSE 5% 100 ML IV SCH (00:23)
[2019-10-11] MEDS: ALBUTEROL 0.083% 2.5 MG/3 ML NEBU INH SCH ×4 (01:00→18:56)
--- NOTE | 2019-10-11 01:05 | NUR ---
CRITICAL LAB PTT CALLED IN FOR VALUE OF 96. WILL STOP HEPARIN DRIP AND REDUCE TO 550UNITS/HR AND RESTART AFTER 1 HOUR.
--- NOTE | 2019-10-11 01:31 | NUR ---
BRENDAN GARRISON PT HR 56 WILL CONTINUE TO MONITOR HR AND VITALS Addendum: 10/11/19 at 0131 by Jason Martinez RN HELD PER PROTOCOL
--- NOTE | 2019-10-11 01:50 | NUR ---
CONTACTED DR. YIN AND MADE AWARE OF PT WAS IN ATRIAL FLUTTER WHICH CONVERTED TO LONG PAUSE THEN SINUS LUIS MANUEL, PT REMAINED SINUS LUIS MANUEL 20 MIN AFTER PAUSING CARDIZEM, INFORMED TO CALL BACK IF HR DROPS BELOW 50, WILL CONTINUE TO MONITOR PT
--- NOTE | 2019-10-11 03:00 | NUR ---
PT BED BATH GIVEN, PT HAD BM SMEAR DARK BROWN COLOR PT BREIFLY AWAKE TRIES TO TALK ENCOURAGED TO REST, WILL CONTINUE TO MONITOR PT
--- NOTE | 2019-10-11 05:44 | NUR ---
PATIENT STILL REMAINS ON SAME VENT SETTINGS. AIRWAY IS PATENT. ETT IS SECURED AND INTACT. PATIENT IN NO DISTRESS AT THIS TIME. HHN TX DURING NOC SHIFT WERE NOT GIVEN DUE TO HIGH HEART RATE. WILL CONTINUE TO MONITOR.
[2019-10-11] MEDS: DEXMEDETOMIDINE HCL 200 MCG in NACL 0.9% 48 ML IV PRN (05:58)
[2019-10-11 06:20] LABS: ANION GAP 16.9 (8-16); CARBON DIOXIDE 25.5 mmol/L (21-32); CREATININE 3.6 mg/dL (0.6-1.3); PHOSPHORUS 6.6 mg/dL (2.5-4.9); POTASSIUM 4.4 mmol/L (3.5-5.1)
[2019-10-11 06:58] LABS: HEMOGLOBIN 9.2 g/dL (12.0-16.0); MEAN CORPUSCULAR HEMOGLOBIN 30 pg (27-31); MEAN CORPUSCULAR HGB CONC 32 g/dL (33-37); PLATELET COUNT (AUTO) 337 K/uL (140-450); RED BLOOD CELL COUNT(AUTO) 3.08 MIL/uL (4.20-5.40); RED CELL DISTRIBUTION WIDTH 14.2 % (11.6-13.7)
[2019-10-11 07:03] LABS: WHITE BLOOD COUNT (AUTO) 27.2 K/uL (4.8-10.8)
--- NOTE | 2019-10-11 07:14 | NUR ---
RECEIVED PT FROM SEAWEED HARVESTER, PT REMAINS ON DOCUMENTED SETTINGS. ETT IS SECURED AND INTACT. TX GIVEN INLINE, HR IS STABLE. PT SHOWS NO SIGN OF DISTRESS AT THIS TIME. VENT IS PLUGGED INTO RED OUTLET, ALARMS ARE ON AND FUNCTIONING , AMBU BAG AT BEDSIDE.
--- NOTE | 2019-10-11 07:30 | NUR ---
RECEIVED BED SIDE REPORT FROM SENIOR NETWORK ADMINISTRATOR RN. PT OFF SEDATION, AWAKE, EYE OPENING SPONTANEOUSLY. SR ON MONITOR. HR 67. DRY WEIGHT 72.5KG. VENT SETTINGS AC/VC, FIO2 28%, VT350, R20, PEEP 5, O2 SAT 98%. LUNG SOUNDS CLEAR, BOWELS SOUNDS ACTIVE. R IJ MARY WITH PIGTAIL, LEFT FEMORAL MARY CATH WITH PIGTAIL, BOTH PATENT AND ASYMPTOMATIC, POSITIVE BLOOD RETURN. AND R WRIST VENOUS ACCESS IN PLACE, PATENT AND ASYMPTOMATIC. RIGHT UPPER MID-AXILLARY CHEST TUBE IN PLACE DRAINING WITHOUT SUCTION. PERALTA CATH IN PLACE DRAINING CLEAR YELLOW URINE. OGT IN PLACE, PLACEMENT CONFIRMED WITH AUSCULTATION. TUBE FEEDING NEPRO AT 40ML, WATER FLUSH 50ML Q6H. BED IN LOWEST POSITION. FALL PRECAUTIONS IN PLACE, CALL LIGHT IN PLACE, WILL CONTINUE TO MONITOR.
--- NOTE | 2019-10-11 08:40 | NUR ---
DR. AGUILAR AT BEDSIDE CHANGED VENT SETTING TO CPAP 5 PS 1O TO START WEANING PT. PT WENT APNEIC TWICE INCREASED PS TO 12 PT IS AWAKE WITH MADY AWAD AT BEDSIDE WILL DO ABG IN 30 MINUTES
--- NOTE | 2019-10-11 09:12 | NUR ---
SPOKE WITH DR. BARKER CONCERNING PT ON CPAP 5 PS 12 PT HAS GONE APNEIC FOUR TIMES NOW. PLACED BACK ON AC MODE WILL TRY AGAIN. DR. BARKER WILL SPEAK WITH DR. AGUILAR ABOUT PT
[2019-10-11] MEDS: FAMOTIDINE 20 MG TAB PO SCH (09:54)
[2019-10-11] MEDS: TACROLIMUS 0.5 MG CAP PO SCH ×2 (09:54→21:20)
[2019-10-11] MEDS: VIT-B COMP/VIT-C/FOLIC ACID 1 TAB PO SCH (09:54)
[2019-10-11] MEDS: [UNRECOGNIZED DRUG - MIXTURE] PO SCH (09:54)
[2019-10-11] MEDS: GABAPENTIN 300 MG CAP PO SCH ×2 (09:54→21:21)
[2019-10-11] MEDS: amLODIPine 5 MG TAB PO SCH (09:54)
[2019-10-11] MEDS: FLUTICASONE NASAL 50 MCG/ACTUATION 16 GM BTL NS SCH (09:55)
[2019-10-11] MEDS: methylPREDNISolone SS 40 MG/ML VIAL IVP SCH ×2 (09:55→21:18)
[2019-10-11] MEDS: VITAMIN D 400 IU TAB PO SCH (09:55)
[2019-10-11] MEDS: DILTIAZEM 30 MG TAB PO SCH ×2 (09:55→21:21)
[2019-10-11] MEDS: EZETIMIBE 10 MG TAB PO SCH (09:56)
[2019-10-11] MEDS: LABETALOL 200 MG TAB PO SCH ×3 (09:56→17:14)
[2019-10-11] MEDS: LACTOBACILLUS RHAMNOSUS GG 1 EACH CAP PO SCH (09:56)
[2019-10-11] MEDS: LOSARTAN 50 MG TAB PO SCH ×2 (09:56→21:21)
[2019-10-11] MEDS: DOCUSATE 100 MG/10 ML UDC PO SCH ×2 (09:56→21:16)
[2019-10-11 09:57] LABS: LYMPHOCYTES % (MANUAL) 4 % (20-46); MONOCYTES % (MANUAL) 2 % (5-12)
--- NOTE | 2019-10-11 10:00 | NUR ---
PT EXTUBATED AND PLACED ON 3LNC MADY LOWRY AT BEDSIDE
--- NOTE | 2019-10-11 10:25 | NUR ---
DIALYSIS STARTED, PT TOLERATING WELL, NO DISTRESS NOTED, CALL LIGHT WITHIN REACH, DIALYSIS NURSE AT BEDSIDE.
--- NOTE | 2019-10-11 12:05 | NUR ---
PT CURRENTLY STILL ON DIALYSIS, DUE MEDICATION WILL BE ADMINISTERED WHEN PT IS DONE. PT RESTING, NO DISTRESS NOTED, DIALYSIS NURSE AT BEDSIDE, WILL CONTINUE TO MONITOR.
--- NOTE | 2019-10-11 13:14 | NUR ---
PT HAVING DIALYSIS DONE
[2019-10-11] MEDS: FOAM DRESSING TP SCH (14:09)
--- NOTE | 2019-10-11 14:09 | NUR ---
DUE MEDICATION ADMINISTERED, PT TOLERATED WELL, NO DISTRESS NOTED, CALL LIGHT WITHIN REACH, WILL CONTINUE TO MONITOR.
--- NOTE | 2019-10-11 16:12 | NUR ---
PT TALKED TO MOTHER ON THE PHONE, TOLERATED WELL, NO DISTRESS NOTED, CALL LIGHT WITHIN REACH, WILL CONTINUE TO MONITOR.
[2019-10-11] MEDS ORDERED: VANCOMYCIN 500 MG in DEXTROSE 5% 100 ML IV SCH (17:00)
--- NOTE | 2019-10-11 17:30 | NUR ---
RECEIVED REPORT FROM LAB, PTT 125.3, HEPARIN DRIP HELD PER PROTOCOL FOR 1 HR. PT RESTING, FACETIMING HER SISTER ON PHONE AT THIS MOMENT, PT RESTING, CALL LIGHT WITHIN REACH, WILL CONTINUE TO MONITOR.
--- NOTE | 2019-10-11 18:00 | NUR ---
INCONTINENT OF SMALL AMOUNT OF SEMI SOLID BROWNISH STOOLS. PERINEAL CARE DONE.
--- NOTE | 2019-10-11 19:04 | NUR ---
RECEIVED REPORT FROM AM SHIFT. PATIENT SEEN AND ASSESSED. AUSCULTATION REVEAL RALES BREATH SOUNDS. PATIENT EXTUBATED TODAY. FOUND PATIENT ON 2L NASAL CANNULA WITH SPO2 OF 100%. HOB > 30 DEGREES AND AMBU BAG AT BEDSIDE. PATIENT IS IN NO APPARENT RESPIRATORY DISTRESS AT THIS TIME. HHN TX GIVEN ORDERED AND PATIENT TOLERATED WELL WITH NO ADVERSE REACTION. AIRWAY IS PATIENT. WILL CONTINUE TO MONITOR PATIENT
--- NOTE | 2019-10-11 19:30 | NUR ---
ENDORSED PT TO STAFF MINE WARFARE OFFICER NURSE AT BEDSIDE, PT STABLE, NO DISTRESS NOTED, CALL LIGHT WITHIN REACH.
[2019-10-11] MEDS: CONJUGATED ESTROGENS VAG CREAM 42 GM TUBE VG SCH (21:22)
[2019-10-12] VITALS (12 sets, daily range): BP systolic 110–157; BP diastolic 59–88
[2019-10-12] MEDS: PIPERACILLIN/TAZOBACTAM 2.25 GM in DEXTROSE 5% 50 ML IV SCH ×2
[2019-10-12] MEDS: MORPHINE SULFATE 2 MG/ML SYR IVP PRN ×2 (01:23→10:12)
[2019-10-12] MEDS: ALBUTEROL 0.083% 2.5 MG/3 ML NEBU INH SCH ×4 (01:27→19:54)
--- NOTE | 2019-10-12 01:30 | NUR ---
HHN TX GIVEN AT THIS TIME ORDERED AND PATIENT TOLERATED TX WELL WITH NO ADVERSE REACTION. WILL CONTINUE TO MONITOR PATIENT.
--- NOTE | 2019-10-12 06:45 | NUR ---
PATIENT STILL REMAINS ON ROOM AIR. VENTILATOR IS ON STAND BY. PATIENT IN NO DISTRESS AT THIS TIME. WILL CONTINUE TO MONITOR.
[2019-10-12 06:52] LABS: ANION GAP 16.8 (8-16); CARBON DIOXIDE 27.7 mmol/L (21-32); CREATININE 2.6 mg/dL (0.6-1.3); POTASSIUM 3.5 mmol/L (3.5-5.1)
[2019-10-12 07:18] LABS: MAGNESIUM 1.6 mg/dL (1.8-2.4); PHOSPHORUS 5.1 mg/dL (2.5-4.9)
--- NOTE | 2019-10-12 07:30 | NUR ---
RECEIVED BED SIDE REPORT FROM PRIZE FIGHTER RN. PT STABLE, ON 2LPM O2 VIA NC. LUNG SOUNDS CLEAR, BOWELS SOUNDS ACTIVE. R IJ MARY WITH PIGTAIL, LEFT FEMORAL MARY CATH WITH PIGTAIL, BOTH PATENT AND ASYMPTOMATIC, POSITIVE BLOOD RETURN. AND R WRIST VENOUS ACCESS IN PLACE, PATENT AND ASYMPTOMATIC. RIGHT UPPER MID-AXILLARY CHEST TUBE IN PLACE DRAINING WITHOUT SUCTION. PERALTA CATH IN PLACE DRAINING CLEAR YELLOW URINE. BED IN LOWEST POSITION. FALL PRECAUTIONS IN PLACE, CALL LIGHT IN PLACE, WILL CONTINUE TO MONITOR.
[2019-10-12 07:55] LABS: HEMATOCRIT 26.9 % (36-48); HEMOGLOBIN 8.7 g/dL (12.0-16.0); MEAN CORPUSCULAR HEMOGLOBIN 30 pg (27-31); MEAN CORPUSCULAR HGB CONC 32 g/dL (33-37); MEAN CORPUSCULAR VOLUME 92.7 fL (80-94); PLATELET COUNT (AUTO) 296 K/uL (140-450); RED CELL DISTRIBUTION WIDTH 13.9 % (11.6-13.7)
[2019-10-12 07:57] LABS: WHITE BLOOD COUNT (AUTO) 37.1 K/uL (4.8-10.8)
[2019-10-12 07:58] LABS: LYMPHOCYTES % (MANUAL) 2 % (20-46); MONOCYTES % (MANUAL) 2 % (5-12)
[2019-10-12] MEDS: DOCUSATE 100 MG/10 ML UDC PO SCH ×3 (09:00→21:06)
[2019-10-12] MEDS ORDERED: VANCOMYCIN PER PHARMACY MC PRN (09:05)
[2019-10-12] MEDS: methylPREDNISolone SS 40 MG/ML VIAL IVP SCH ×2 (10:07→21:04)
[2019-10-12] MEDS: TACROLIMUS 0.5 MG CAP PO SCH ×2 (10:08→21:05)
[2019-10-12] MEDS: FLUTICASONE NASAL 50 MCG/ACTUATION 16 GM BTL NS SCH (10:08)
[2019-10-12] MEDS: amLODIPine 5 MG TAB PO SCH (10:09)
[2019-10-12] MEDS: EZETIMIBE 10 MG TAB PO SCH (10:09)
[2019-10-12] MEDS: FAMOTIDINE 20 MG TAB PO SCH (10:09)
[2019-10-12] MEDS: LOSARTAN 50 MG TAB PO SCH ×2 (10:10→21:06)
[2019-10-12] MEDS: LABETALOL 200 MG TAB PO SCH ×3 (10:10→17:14)
[2019-10-12] MEDS: LACTOBACILLUS RHAMNOSUS GG 1 EACH CAP PO SCH (10:10)
[2019-10-12] MEDS: VITAMIN D 400 IU TAB PO SCH (10:10)
[2019-10-12] MEDS: VIT-B COMP/VIT-C/FOLIC ACID 1 TAB PO SCH (10:11)
[2019-10-12] MEDS: GABAPENTIN 300 MG CAP PO SCH ×2 (10:11→21:05)
[2019-10-12] MEDS: DILTIAZEM 30 MG TAB PO SCH ×2 (10:11→21:07)
--- NOTE | 2019-10-12 10:11 | NUR ---
DUE MEDICATION ADMINISTERED, PT STATED HAVING PAIN TO THE THROAT, MEDICATION PER DR ORDER ADMINISTERED, PT HAS BEEN HAVING DIARRHEA AND STOMACH DISCOMFORT, COLACE WAS NOT GIVEN. PT TOLERATED WELL, NO DISTRESS NOTED, CALL LIGHT WITHIN REACH, WILL CONTINUE TO MONITOR.
[2019-10-12] MEDS: [UNRECOGNIZED DRUG - MIXTURE] PO SCH (10:13)
[2019-10-12] MEDS ORDERED: SHARK OIL/PHENYLEPHRINE 60 GM TUBE TP PRN (12:00)
[2019-10-12] MEDS ORDERED: PIPERACILLIN/TAZOBACTAM 2.25 GM in DEXTROSE 5% 50 ML IV SCH (12:00)
[2019-10-12] MEDS: ACETAMINOPHEN 325 MG TAB PO PRN ×2 (12:40→22:10)
--- NOTE | 2019-10-12 12:40 | NUR ---
PT HAVING HEADACHE, TYLENOL GIVEN, PT TOLERATED WELL, NO DISTRESS NOTED, CALL LIGHT WITHIN REACH.
--- NOTE | 2019-10-12 12:40 | NUR ---
DUE MEDICATION ADMINISTERED, PT TOLERATED WELL, NO DISTRESS NOTED, CALL LIGHT WITHIN REACH, WILL CONTINUE TO MONITOR.
[2019-10-12] MEDS: HYDRAGUARD CREAM TP SCH (13:23)
[2019-10-12] MEDS: FOAM DRESSING TP SCH (13:23)
--- NOTE | 2019-10-12 15:00 | NUR ---
SWALLOW EVAL DONE AT BEDSIDE BY
--- NOTE | 2019-10-12 15:12 | NUR ---
ST CLARIFICATION NOTE Pt HAS RESIDUAL WEAKNESS IMPACTING SPEED OF PERFORMANCE. Pt WAS ABLE TO TOLERATE PUREE, MSC, AND THIN LIQUIDS BY TSP, CUP, AND STRAW, W/O DIFFICULTY OR OVERT S/S OF ASPIRATION OR PENETRATION NOTED. AP TRANSFER AND SWALLOW RESPONSE WERE TIMELY WITH FULL LARYNGEAL ELEVATION AND EXCURSTION. Pt'S OWN FULL DENTITION WAS ADEQUATE FOR MASTICATION. RESIDUAL WEAKNESS IMPACTED ABILITY TO FEED SELF, WELL WOULD LIKELY IMPACT ABILITY TO CUT OWN FOOD. REC MSC FOOD AND THIN LIQUIDS VIA CUP/STRAW. ASPIRATION PRECAUTIONS, ORAL CARE, TRAY SET UP, MODERATE FEEDING ASSISTANCE AT BEDSIDE NEEDED. REC TO ADVANCE TO REGULAR TEXTURE TOLERATED WHEN RESIDUAL WEAKNESS IS RESOLVED. D/C SKILLED ST FOR SWALLOW TX. Pt HAS FUNCTIONAL SWALLOW FOR Pt AT THIS TIME.
--- NOTE | 2019-10-12 17:14 | NUR ---
DUE MEDICATION ADMINISTERED. PT TOLERATED WELL, NO DISTRESS NOTED, CALL LIGHT WITHIN REACH.
[2019-10-12] MEDS ORDERED: ALTEPLASE 2 MG VIAL MC ONE (17:20)
[2019-10-12] MEDS ORDERED: MAG SULF 2000 MG/WATER PREMIX 50 ML IV SCH (18:00)
[2019-10-12 18:23] LABS: APPEARANCE,URINE CLEAR (CLEAR); BILIRUBIN,URINE NEGATIVE (NEGATIVE); BLOOD, URINE 2+ (NEGATIVE); COLOR,URINE YELLOW (YELLOW); LEUKOCYTE ESTERASE ,URINE NEGATIVE (NEGATIVE); NITRITE, URINE NEGATIVE (NEGATIVE); PH,URINE 7.5 (5.0-9.0); UGLUCOSE NEGATIVE (NEGATIVE)
[2019-10-12 18:29] LABS: RBC,URINE 11-20 (MOD) /HPF (0-5)
[2019-10-12 18:30] LABS: WBC,URINE 0-5 /HPF (0-5)
--- NOTE | 2019-10-12 19:30 | NUR ---
BEDSIDE REPORT RECEIVED FROM AM SHIFT RN. PT A&OX4. ABLE TO TO MAKE NEEDS KNOWN. ON ROOM AIR. SINUS RHYTHM ON MONITOR. IV SITE RIJ MARY CATH AND R FEMORAL MARY CATH IN PLACE, INTACT, PATENT, SALINE LOCKED. R WRIST, 22G, INFUSING MAGNESIUM. RIGHT UPPER MID AXILLARY CHEST TUBE IN PLACE, DRAINING WITHOUT SUCTION. SKIN NON INTACT, SEE WOUND ASSESSMENT. PERALTA CATHETER IN PLACE. BED LOCKED IN LOWEST POSITION. CALL LIGHT WITHIN REACH. WILL CONTINUE TO MONITOR.
--- NOTE | 2019-10-12 19:30 | NUR ---
ENDORSED PT TO ENGAGEMENT ENGINEER NURSE, PT STABLE, NO DISTRESS NOTED, CALL LIGHT WITHIN REACH.
--- NOTE | 2019-10-12 20:15 | NUR ---
RT AT BEDSIDE.
[2019-10-12] MEDS: metroNIDAZOLE 500 MG TAB PO SCH (21:05)
[2019-10-12] MEDS: MEROPENEM 500 MG in NACL 0.9% 50 ML IV SCH (21:05)
[2019-10-12] MEDS: CONJUGATED ESTROGENS VAG CREAM 42 GM TUBE VG SCH (21:06)
--- NOTE | 2019-10-12 22:15 | NUR ---
PT COMPLAINING OF HEADACHE PAIN. TYLENOL PRN GIVEN. WILL CONTINUE TO MONITOR.
--- NOTE | 2019-10-12 22:15 | NUR ---
RT AT BEDSIDE. Addendum: 10/13/19 at 0113 by Parish Stewart RN WRONG TIME, DOCUMENTED. PLS DISREGARD.
[2019-10-13] VITALS (11 sets, daily range): BP systolic 104–163; BP diastolic 66–83
--- NOTE | 2019-10-13 00:12 | NUR ---
PT AWAKE, ABLE TO MAKE NEEDS KNOWN. RESPIRATIONS EVEN AND UNLABORED. CHEST RISE IS SYMMETRICAL. WILL CONTINUE TO MONITOR.
[2019-10-13] MEDS: ALBUTEROL 0.083% 2.5 MG/3 ML NEBU INH SCH ×3 (01:00→12:53)
--- NOTE | 2019-10-13 02:32 | NUR ---
PT AWAKE, ALERT, ABLE TO MAKE NEEDS KNOWN. SAFETY PRECAUTIONS IN PLACE. CALL LIGHT WITHIN REACH. WILL CONTINUE TO MONITOR.
[2019-10-13] MEDS: metroNIDAZOLE 500 MG TAB PO SCH ×3 (04:15→20:28)
--- NOTE | 2019-10-13 04:45 | NUR ---
FLAGYL PO MED ADMINISTERED. PT TOLERATED WELL. WILL CONTINUE TO MONITOR.
[2019-10-13 06:16] LABS: ANION GAP 14.7 (8-16); CARBON DIOXIDE 26.1 mmol/L (21-32); CREATININE 3.2 mg/dL (0.6-1.3); POTASSIUM 3.8 mmol/L (3.5-5.1)
[2019-10-13 06:18] LABS: MAGNESIUM 2.2 mg/dL (1.8-2.4)
[2019-10-13 06:26] LABS: BASOPHILS % (AUTO) 0.1 % (0.0-2.0); HEMATOCRIT 24.4 % (36-48); HEMOGLOBIN 7.9 g/dL (12.0-16.0); LYMPHOCYTES # (AUTO) 0.5 K/uL (2.5-16.5); LYMPHOCYTES % (AUTO) 1.7 % (20.5-51.1); MEAN CORPUSCULAR HEMOGLOBIN 30 pg (27-31); MEAN CORPUSCULAR HGB CONC 32 g/dL (33-37); MEAN CORPUSCULAR VOLUME 92.4 fL (80-94); MONOCYTES # (AUTO) 0.6 K/uL (0.8-1.0); MONOCYTES % (AUTO) 2.3 % (1.7-9.3); NEUTROPHILS # (AUTO) 25.9 K/uL (1.8-7.7); NEUTROPHILS % (AUTO) 95.9 % (42.2-75.2); PLATELET COUNT (AUTO) 249 K/uL (140-450); RED BLOOD CELL COUNT(AUTO) 2.64 MIL/uL (4.20-5.40)
--- NOTE | 2019-10-13 06:45 | NUR ---
DR BARKER AT BEDSIDE, IN TO ASSESS PT.
--- NOTE | 2019-10-13 07:12 | NUR ---
RECEIVED REPORT FROM NIGHT NURSE FOR CONTINUITY OF CARE, PT IS STABLE, PT IS AAOX4, PT RECEIVING BREATHING TREATMENT, RT AT BEDSIDE. PT HAS A CHEST TUBE TO GRAVITY AT MIDAXILLARY, PT HAS RIJ MARY CATH TO TKO, R FEMORAL MARY CATH SALINE LOCK, RIGHT WRIST 22G SALINE LOCK, PT ON MECHANICAL SOFT DIET AND REQUIRES SOME ASSISTANCE. PERALTA CATH IN PLACE, PT HAS A DTI TO R BUTTOCKS COVERED WITH OPTIFOAM, S/P RIP HIP FRACTURE WITH DRESSING IN PLACE, DENIS WERE REMOVED. INTRODUCE MYSELF, PT IS STABLE, CALL LIGHT WITHIN REACH. ALL NEEDS MET AT THIS TIME, WILL CONTINUE TO MONITOR.
--- NOTE | 2019-10-13 07:20 | NUR ---
BEDSIDE REPORT GIVEN TO AM SHIFT RN FOR CONTINUITY OF CARE.
--- NOTE | 2019-10-13 07:40 | NUR ---
DR SWEENEY AND RESIDENT ASSESS PT AT BEDSIDE. PT STABLE ON ROOM AIR, NO SIGNS OF DISTRESS NOTED, CALL LIGHT WITHIN REACH.
--- NOTE | 2019-10-13 08:57 | NUR ---
DR AGUILAR AT BEDSIDE WITH PT, DR AGUILAR STATES HE WILL REMOVE CHEST TUBE AFTER PT HAS DECREASED BLOOD OUTPUT.
--- NOTE | 2019-10-13 09:10 | NUR ---
CHEST TUBE CLAMPED AND IN 1 HOUR PT WILL HAVE A CT WITHOUT CONTRAST.
[2019-10-13] MEDS: methylPREDNISolone SS 40 MG/ML VIAL IVP SCH ×2 (09:14→20:27)
[2019-10-13] MEDS: MEROPENEM 500 MG in NACL 0.9% 50 ML IV SCH (09:16)
[2019-10-13] MEDS: GABAPENTIN 300 MG CAP PO SCH ×2 (09:17→20:28)
[2019-10-13] MEDS: DOCUSATE 100 MG/10 ML UDC PO SCH ×2 (09:17→20:28)
[2019-10-13] MEDS: LABETALOL 200 MG TAB PO SCH ×3 (09:18→17:00)
[2019-10-13] MEDS: DILTIAZEM 30 MG TAB PO SCH ×2 (09:18→20:27)
[2019-10-13] MEDS: LOSARTAN 50 MG TAB PO SCH ×2 (09:18→20:28)
[2019-10-13] MEDS: TACROLIMUS 0.5 MG CAP PO SCH (09:19)
[2019-10-13] MEDS: amLODIPine 5 MG TAB PO SCH (09:20)
[2019-10-13] MEDS: EZETIMIBE 10 MG TAB PO SCH (09:20)
[2019-10-13] MEDS: LACTOBACILLUS RHAMNOSUS GG 1 EACH CAP PO SCH (09:21)
[2019-10-13] MEDS: VIT-B COMP/VIT-C/FOLIC ACID 1 TAB PO SCH (09:22)
[2019-10-13] MEDS: FAMOTIDINE 20 MG TAB PO SCH (09:22)
[2019-10-13] MEDS: MORPHINE SULFATE 2 MG/ML SYR IVP PRN (09:23)
--- NOTE | 2019-10-13 09:26 | NUR ---
ADMINISTERED MORPHINE FOR PAIN AT CHEST TUBE INSERTION SITE, PAIN 9/10, PT STATES SHE IS UNCOMFORTABLE AND IT HURTS, MEDICATION EDUCATION GIVEN, PT VERBALIZED UNDERSTANDING. ADMINISTERED SCHEDULED MEDICATION, MEDICATION EDUCATION GIVEN, PT VERBALIZED UNDERSTANDING, PT STABLE, RESPIRATIONS ARE EVEN AND UNLABORED ON ROOM AIR, CALL LIGHT WITHIN REACH.
[2019-10-13] MEDS: FLUTICASONE NASAL 50 MCG/ACTUATION 16 GM BTL NS SCH (09:50)
[2019-10-13] MEDS: VITAMIN D 400 IU TAB PO SCH (09:57)
[2019-10-13] MEDS: HYDRAGUARD CREAM TP SCH (09:58)
[2019-10-13] MEDS: [UNRECOGNIZED DRUG - MIXTURE] PO SCH (09:58)
--- NOTE | 2019-10-13 10:30 | NUR ---
PT OFF UNIT TO CT, NURSE WENT WITH PT, PT STABLE.
--- NOTE | 2019-10-13 10:45 | NUR ---
PT BACK FROM CT, PT STABLE IN BED, PT STABLE, NO SIGNS OF DISTRESS NOTED, PT ON REBAR WORKER, RESPIRATIONS ARE EVEN AND UNLABORED ON ROOM AIR, CALL LIGHT WITHIN REACH.
--- NOTE | 2019-10-13 10:45 | NUR ---
CHEST TUBE UNCLAMPED, PT IS STABLE, NO SIGNS OF DISTRESS NOTED, RESPIRATIONS ARE EVEN AND UNLABORED ON ROOM AIR.
--- NOTE | 2019-10-13 11:00 | NUR ---
PT RECEIVED A BED BATH, PT TOLERATED WELL, PT IS STABLE, RESPIRATIONS ARE EVEN AND UNLABORED ON ROOM AIR, PT CALL LIGHT WITHIN REACH.
--- NOTE | 2019-10-13 11:45 | NUR ---
UNCLAMPED CHEST TUBE. Addendum: 10/13/19 at 1153 by Enedina Hidalgo RN PT STABLE, NO SIGNS OF DISTRESS NOTED, RESPIRATIONS ARE EVEN AND UNLABORED ON ROOM AIR, PT IS STABLE, CALL LIGHT WITHIN REACH. Addendum: 10/13/19 at 1154 by Enedina Hidalgo RN WRONG TIME, CORRECT TIME IS 1045
[2019-10-13] MEDS: ACETAMINOPHEN 325 MG TAB PO PRN (12:46)
--- NOTE | 2019-10-13 12:47 | NUR ---
ADMINISTERED TYLENOL FOR HEADACHE, MEDICATION EDUCATION GIVEN, PT VERBALIZED UNDERSTANDING, PT IS STABLE, NO SIGNS OF DISTRESS NOTED, RESPIRATIONS ARE EVEN AN UNLABORED ON ROOM AIR, ALL NEEDS MET, WILL CONTINUE TO MONITOR, CALL LIGHT WITHIN REACH.
[2019-10-13] MEDS: FOAM DRESSING TP SCH (13:00)
--- NOTE | 2019-10-13 13:39 | NUR ---
10/13/19 RD FOLLOW UP COMPLETED PLEASE REFER TO NUTRITION ASSESSMENT UNDER CARE ACTIVITY FOR ESTIMATED NUTRITIONAL NEEDS. 1. CONTINUE MECHANICAL SOFT DIET TOLERATED 2. RECOMMEND ENSURE TID 3. CONTINUE NEPHRO-RADHA DAILY 4. ENCOURAGE INCREASING PO INTAKE 5. RD TO FOLLOW-UP 2-3 DAYS, HIGH RISK ÓSCAR JAIME, MIKE
--- NOTE | 2019-10-13 13:42 | NUR ---
ADMINISTERED SCHEDULED MEDICATION, MEDICATION EDUCATION GIVEN, PT VERBALIZED UNDERSTANDING, PT STABLE, NO SIGNS OF DISTRESS NOTED, RESPIRATIONS ARE EVEN AND UNLABORED ON ROOM AIR, CALL LIGHT WITHIN REACH.
[2019-10-13] MEDS ORDERED: VANCOMYCIN 500 MG in DEXTROSE 5% 100 ML IV SCH (14:00)
--- NOTE | 2019-10-13 14:37 | NUR ---
ADMINISTERED SCHEDULED MEDICATION, MEDICATION EDUCATION GIVEN, PT VERBALIZED UNDERSTANDING, PT IS STABLE, NO SIGNS OF DISTRESS NOTED, RESPIRATIONS ARE EVEN AND UNLABORED ON ROOM AIR.
--- NOTE | 2019-10-13 15:55 | NUR ---
CALLED MOTHER RUBY YUNG AT [phone] AND NOTIFY PT WILL BE TRANSFERRED TO [facility] AROUND 1900. PER MOTHER REQUEST, CALLED SISTER, GABO, AT [phone] AND NOTIFIED HER OF PT'S TRANSFER TO [facility] AT 1900.
--- NOTE | 2019-10-13 16:07 | NUR ---
CALLED [facility] AND GAVE REPORT TO NATALIYA AT [phone] ABOUT PT'S TRANSFER AT 1900.
[2019-10-13] MEDS ORDERED: LABE200T9 PO (16:13)
--- NOTE | 2019-10-13 16:28 | NUR ---
DR BARKER REMOVED PT'S CHEST TUBE, CHEST TUBE HAD A TOTAL OUTPUT OF 130ML, SEROUS BLOOD. 70 ML OUTPUT PER SHIFT.
[2019-10-13] MEDS ORDERED: LOSA50TA1 PO (16:51)
[2019-10-13] MEDS ORDERED: CAR30 PO (16:51)
[2019-10-13] MEDS ORDERED: COL100L PO (16:51)
[2019-10-13] MEDS ORDERED: MORP2SOL18 IVP (16:51)
[2019-10-13] MEDS ORDERED: MERO500V13 IV (16:51)
[2019-10-13] MEDS ORDERED: METH40PD15 IVP (16:51)
[2019-10-13] MEDS ORDERED: Gauze TP (16:51)
[2019-10-13] MEDS ORDERED: METR500T1 PO (16:51)
[2019-10-13] MEDS ORDERED: FAMO20TA13 PO (16:51)
[2019-10-13] MEDS ORDERED: VANC500P28 IV (16:58)
[2019-10-13] MEDS ORDERED: LACT10CA1 PO (16:58)
--- NOTE | 2019-10-13 17:26 | NUR ---
ADMINISTERED NORCO FOR PAIN OF 6/10, AT SITE WHERE CHEST TUBE WAS REMOVED, PT STATES THE SITE HURTS. MEDICATION EDUCATION GIVEN, PT VERBALIZED UNDERSTANDING, PT STABLE, PT CURRENTLY ON DIALYSIS, DIALYSIS NURSE AT BEDSIDE.
--- NOTE | 2019-10-13 18:46 | NUR ---
DIALYSIS FINISHED, REMOVED 1.8L, PT STABLE, NO SIGNS OF DISTRESS NOTED, CALL LIGHT WITHIN REACH.
--- NOTE | 2019-10-13 19:10 | NUR ---
GAVE REPORT TO NIGHT NURSE FOR CONTINUITY OF CARE, PT IS STABLE.
--- NOTE | 2019-10-13 20:30 | NUR ---
PT TRANSFERRED TO [facility] ROOM 309A IN STABLE CONDITION VIA RNEY.PT ALERT AND ORIENTED X4.PT ON ROOM AIR.NO SOB NOTED.MARY CATHETER TO RT IJ INTACT W/DRY DRESSING AND PERIPHERAL IV TO RT WRIST G22.SALINE LOCK.PERALTA CATHETER TO BSD STILL IN PLACE ALSO INTACT.DRESSING TO RT HIP D/I AND CHEST TUBE SITE ALSO INTACT. PT DENIES PAIN.ALL BELONGINGS SENT WITH PT VIA [facility]. PT SPOKE WITH HER MOM EARLIER AND FAMILY AWARE OF TRANSFER
[2019-10-13] MEDS ORDERED: TACROLIMUS 1 MG CAP PO SCH (21:00)
[2019-10-14] MEDS ORDERED: TACROLIMUS 1 MG CAP PO SCH (09:00)
[2019-10-14] MEDS ORDERED: GAUZE TP SCH (13:20)
== END 2019-10-13 20:30 | DRG 870 ==
LOC: EEVIPCON 04:27 → MED 04:27 → MMU 05:42 → MIC 12:46
PROVIDERS: ADMIT General Practice; ATTEND General Practice
PROC: 5A1955Z Respiratory Ventilation, Greater than 96 Consecutive Hours (ICD-10-PCS; principal; 2019-10-01)
PROC: 5A1955Z Respiratory Ventilation, Greater than 96 Consecutive Hours (ICD-10-PCS; 2019-10-01)
PROC: 0BH17EZ Insertion of Endotracheal Airway into Trachea, Via Natural or Artificial Opening (ICD-10-PCS; 2019-10-01)
PROC: 02HV33Z Insertion of Infusion Device into Superior Vena Cava, Percutaneous Approach (ICD-10-PCS; 2019-10-01)
PROC: B548ZZA Ultrasonography of Superior Vena Cava, Guidance (ICD-10-PCS; 2019-10-01)
PROC: 0W9930Z Drainage of Right Pleural Cavity with Drainage Device, Percutaneous Approach (ICD-10-PCS; 2019-10-02)
PROC: 02H633Z Insertion of Infusion Device into Right Atrium, Percutaneous Approach (ICD-10-PCS; 2019-10-02)
PROC: B548ZZA Ultrasonography of Superior Vena Cava, Guidance (ICD-10-PCS; 2019-10-02)
PROC: 30233N1 Transfusion of Nonautologous Red Blood Cells into Peripheral Vein, Percutaneous Approach (ICD-10-PCS; 2019-10-03)
PROC: 5A1D70Z Performance of Urinary Filtration, Intermittent, Less than 6 Hours Per Day (ICD-10-PCS; 2019-10-03)
PROC: 05PYX3Z Removal of Infusion Device from Upper Vein, External Approach (ICD-10-PCS; 2019-10-04)
PROC: 5A1D70Z Performance of Urinary Filtration, Intermittent, Less than 6 Hours Per Day (ICD-10-PCS; 2019-10-04)
PROC: 5A1D70Z Performance of Urinary Filtration, Intermittent, Less than 6 Hours Per Day (ICD-10-PCS; 2019-10-06)
PROC: 5A1D70Z Performance of Urinary Filtration, Intermittent, Less than 6 Hours Per Day (ICD-10-PCS; 2019-10-09)
PROC: 5A1D70Z Performance of Urinary Filtration, Intermittent, Less than 6 Hours Per Day (ICD-10-PCS; 2019-10-11)
PROC: 5A1D70Z Performance of Urinary Filtration, Intermittent, Less than 6 Hours Per Day (ICD-10-PCS; 2019-10-13)
DX: A41.9 Sepsis, unspecified organism (principal); J69.0 Pneumonitis due to inhalation of food and vomit; N17.0 Acute kidney failure with tubular necrosis; J96.01 Acute respiratory failure with hypoxia; I21.A1 Myocardial infarction type 2; A04.72 Enterocolitis due to Clostridium difficile, not specified as recurrent; Z94.0 Kidney transplant status; J93.83 Other pneumothorax; N18.4 Chronic kidney disease, stage 4 (severe); I48.92 Unspecified atrial flutter; R65.20 Severe sepsis without septic shock; E78.5 Hyperlipidemia, unspecified; F41.9 Anxiety disorder, unspecified; I12.9 Hypertensive chronic kidney disease with stage 1 through stage 4 chronic kidney disease, or unspecified chronic kidney disease; J45.909 Unspecified asthma, uncomplicated; T38.0X5A Adverse effect of glucocorticoids and synthetic analogues, initial encounter; Y92.89 Other specified places as the place of occurrence of the external cause; Z96.641 Presence of right artificial hip joint; Z79.899 Other long term (current) drug therapy; Z88.8 Allergy status to other drugs, medicaments and biological substances; Z87.81 Personal history of (healed) traumatic fracture; K64.4 Residual hemorrhoidal skin tags; G47.00 Insomnia, unspecified; E11.42 Type 2 diabetes mellitus with diabetic polyneuropathy; E11.22 Type 2 diabetes mellitus with diabetic chronic kidney disease; D63.8 Anemia in other chronic diseases classified elsewhere; N93.8 Other specified abnormal uterine and vaginal bleeding; Z03.818 Encounter for observation for suspected exposure to other biological agents ruled out; I48.91 Unspecified atrial fibrillation
CPT/HCPCS: 36415; 36600; 71045; 71250; 76770; 78582; 80048; 80053; 80202; 80305; 81001; 81025; 82140; 82150; 82550; 82803; 82948; 83036; 83605; 83615; 83690; 83735; 83880; 84100; 84443; 84484; 85025; 85379; 85610; 85651; 85730; 86140; 86704; 86706; 86708; 86709; 86803; 86886; 86900; 86901; 86920; 87040; 87070; 87081; 87086; 87205; 87340; 87804; 92610; 93005; 93970; 94002; 94003; 94640; 96365; 96368; 99291; A4649; C1751; J0153; J0360; J0696; J1642; J1644; J1650; J1940; J2060; J2185; J2250; J2270; J2543; J2704; J2920; J3370; J3475; J3490; J3535; J7030; J7060; J7507; J7517; J7613; P9016; Q0092; Q0162; U0003-CS